=== PATIENT | female | born 1960 | race Caucasian/White ===

== ENCOUNTER 2021-03-08 18:29 | Emergency (ER) | payer MEDICARE, SELFPAY ==
[2021-03-08 18:36] VITALS: BP 134/60; PULSE 119; RESP 20; TEMP 36.8; O2SAT 100
--- NOTE | 2021-03-08 18:48 | ED.FEMALEGU ---
HPI - Female Genitourinary General Chief complaint: Urogenital-Female Stated complaint: sore throat,vaginal inf Source: patient and RN notes reviewed Mode of arrival: ambulatory Limitations: no limitations History of Present Illness HPI Narrative: Padmini is a 60 year old female who ambulated into the [facility] with c/o low back pain, painful urination, and vaginal itching without discharge for one week. Patient has taken Vagisil at home. MD elicited complaint: dysuria and genital itching Related Data Home Medications Medication Instructions Recorded Confirmed bupropion HCl 100 mg PO BID 03/08/21 03/08/21 famotidine 40 mg PO DAILY 03/08/21 03/08/21 fluoxetine 40 mg PO DAILY 03/08/21 03/08/21 fluticasone propion-salmeterol 2 inh INHALATION BID 03/08/21 03/08/21 [Advair Diskus] pravastatin 40 mg PO DAILY 03/08/21 03/08/21 Allergies Allergy/AdvReac Type Severity Reaction Status Date / Time No Known Allergies Allergy Verified 03/08/21 18:51 Review of Systems Review of Systems: CONSTITUTIONAL: Denies body aches, fever, chills, or sweats. EYES: Denies visual changes, redness, or discharge. ENT: Denies rhinorrhea, congestion, sore throat, or otalgia. CARDIOVASCULAR: Denies chest pain, palpitations, or edema. RESPIRATORY: Denies cough or dyspnea. GASTROINTESTINAL: Denies abdominal pain, nausea, vomiting, or diarrhea. GENITOURINARY: + dysuria ; + vaginal itching SKIN: Denies rash, itching, or wounds. MUSCULOSKELETAL: Denies back pain, joint pain, or myalgia. NEUROLOGIC: Denies headache, numbness, tingling, or weakness. PSYCH: Denies depression or anxiety. All systems reviewed & are unremarkable except as noted in HPI and below PMFSH Comments At time of signature, I have reviewed and agree with nursing past medical, surgical, social and family history unless otherwise noted. Please see nursing chart for further information. There is no relevant family history pertinent to the presenting complaint Exam Narrative: GENERAL: Well-appearing, well-nourished, and in no acute distress. HEAD: Normocephalic, atraumatic. EYES: EOMI. No redness or drainage. Conjunctivae normal. ENT: Mucous membranes pink and moist. Nares clear. No rhinorrhea. Posterior pharynx with minimal erythema and clear postnasal drainage. NECK: Normal AROM. Supple. No lymphadenopathy. CHEST: No respiratory distress. Clear to auscultation. : cervix pale, mild erythema, uterus tender to palpation during exam. ABDOMEN: Soft, nontender, nondistended, normal active bowel sounds. MUSCULOSKELETAL: No bony tenderness. EXTREMITIES: Normal range of motion. No edema. SKIN: Warm, dry, no rash. Capillary refill normal. Normal skin turgor. NEURO: No focal deficits. Alert and oriented x3. Gait steady. PSYCH: Normal affect. No signs of depression or anxiety. Course Vital Signs Vital signs: Vital Signs Temperature 36.8 C 03/08/21 18:36 Pulse Rate 119 H 03/08/21 18:36 Respiratory Rate 20 03/08/21 18:36 Blood Pressure 134/60 03/08/21 18:36 Pulse Oximetry 100 03/08/21 18:36 Temperature 36.8 C 03/08/21 18:36 Pulse Rate 119 H 03/08/21 18:36 Respiratory Rate 20 03/08/21 18:36 Blood Pressure 134/60 03/08/21 18:36 Pulse Oximetry 100 03/08/21 18:36 MDM - Female Genitourinary MDM Narrative Medical decision making narrative: UA was negative for any leukocytes. Vaginal and exam was performed cervix is pale with mild erythema. Uterus was tender throughout;. Patient was very uncomfortable throughout the exam due to increased tenderness in the area. Patient has not had a Pap exam in at least 10 to 15 years. Patient was instructed that she needs to follow-up immediately with OB/gyne. Differential Diagnosis Differential diagnosis: Likely urinary tract infection, bacterial vaginosis, trichomoniasis and cervicitis Medical Records Attestation: I reviewed the patient's medical records. Lab Data Attestation: I reviewed the pat
[2021-03-08] MEDS: LIDOCAINE HCL 1% LOCAL INJ 20 ML VIAL IM (19:18)
[2021-03-08] MEDS: cefTRIAXone 500 MG VIAL IM (19:19)
--- NOTE | 2021-03-08 19:33 | PC.NURSE ---
NO CULTURE PER PROVIDER.
== END 2021-03-08 19:40 | disposition home or self-care (01) ==
PROVIDERS: Emergency Provider Nurse Practitioner Family
DX: N76.0 Acute vaginitis (principal); E78.00 Pure hypercholesterolemia, unspecified; K21.9 Gastro-esophageal reflux disease without esophagitis; M06.9 Rheumatoid arthritis, unspecified; F32.A Depression, unspecified
CPT/HCPCS: 81003; 87070; 87491; 87591; 87661; 96372; 99214; G0463; J0696

== ENCOUNTER 2021-05-26 13:36 | Outpatient (CLI) | payer OTHER, MEDICARE, SELFPAY ==
--- NOTE | ~2021-05-26 | CT_ITS ---
EXAMINATION: CT shoulder RT wo con DATE: 05/26/2021 14:28 INDICATION: Right shoulder pain TECHNIQUE: High resolution computed tomography (CT) of the right shoulder was performed without intra venous contrast. Additional sagittal and coronal reconstructions were performed. Automated exposure c ontrol and iterative reconstruction technique were employed. The dose-length product was 251.55 mGy-c m. COMPARISON: None FINDINGS: Alignment is normal. No fracture. Mild osteoarthritis with mild nonuniform joint space narrowing at t he right glenohumeral and acromioclavicular joints. No evident glenohumeral effusion, subacromial/sub deltoid bursitis or other abnormal fluid collections. Musculature of the right shoulder girdle and up per abdomen is unremarkable with no evident effusion. No abnormal masses identified. No pathologicall y enlarged right axillary or hilar lymphadenopathy. Visualized portions of the right mid and upper florence ngs are unremarkable. IMPRESSION: Mild right glenohumeral and acromioclavicular osteoarthritis. Reviewed, dictated and finalized at location A. [place] BLANCHER
--- NOTE | ~2021-05-26 | CT_ITS ---
EXAMINATION: CT cervical spine wo [facility] EXAM DATE: 05/26/2021 14:28 INDICATION: Cervicalgia, Injury X 1 Month Ago Rt Shoulder/Neck Pain. TECHNIQUE: Spiral CT of the cervical spine was performed without contrast. Axial images were reviewe d. Coronal and sagittal reformatted images cervical spine were also reviewed. The dose-length produc t (DLP) for this examination was 251.55 mGy-cm. The exposure was tailored according to patient size (auto mA exposure control), and iterative reconstruction (ASIR) was used as additional dose reduction technique. There is no prior study for comparison. FINDINGS: There is mild cervical dextroscoliosis. The odontoid process is intact. The lateral mihai s of C1 line up with C2. Prevertebral soft tissue and pre-dens space are within normal limits. The ve rtebral bodies are aligned in the AP dimension. There is moderate disc disease at C5-6, mild to moder ate at C4-5, less disc disease other cervical levels. Paraspinal soft tissue is unremarkable. Lung ap ices unremarkable.. Level by level evaluation: C2-C3: There is a mild diffuse disc bulge. Uncovertebral joint arthropathy: None. Facet joint arthropathy: Mild to moderate bilateral. Neural foraminal stenosis: No stenosis. Central canal stenosis: No stenosis. C3-C4: There is a mild diffuse disc bulge. Uncovertebral joint arthropathy: Mild bilateral. Facet joint arthropathy: Mild to moderate right, mild left. Neural foraminal stenosis: Mild left. Central canal stenosis: No stenosis. C4-C5: There is a mild diffuse disc bulge. Uncovertebral joint arthropathy: Mild left. Facet joint arthropathy: Mild to moderate left, mild right. Neural foraminal stenosis: Mild left. Central canal stenosis: No stenosis. C5-C6: There is a mild to moderate diffuse disc bulge. Uncovertebral joint arthropathy: Moderate right, mild to moderate left. Facet joint arthropathy: Mild to moderate left, mild right. Neural foraminal stenosis: Moderate right, mild left. Central canal stenosis: Mild. C6-C7: There is a mild diffuse disc bulge. Uncovertebral joint arthropathy: Mild bilateral. Facet joint arthropathy: Mild to moderate right, mild left. Neural foraminal stenosis: Minimal right. Central canal stenosis: No stenosis. C7-T1: There is a minimal diffuse disc bulge. Uncovertebral joint arthropathy: Mild left. Facet joint arthropathy: Mild to moderate bilateral. Neural foraminal stenosis: Minimal right. Central canal stenosis: No stenosis. IMPRESSION: 1. Moderate C5-6 disc disease and right neural foraminal stenosis. 2. Less spondylosis other levels. 3. Mild cervical dextroscoliosis. 4. No cervical fracture. Reviewed, dictated and finalized at location G. CIAL [facility] REPORTER
--- NOTE | ~2021-05-26 | CT_ITS ---
EXAMINATION: CT lumbar spine wo con DATE: 05/26/2021 14:28 INDICATION: Spondylosis without myelopathy or radiculopathy. TECHNIQUE: Computed tomography (CT) of the lumbar spine was performed without intravenous contrast. A utomated exposure control and iterative reconstruction technique were employed. The dose-length produ ct was 251.55 mGy-cm. COMPARISON: None FINDINGS: There is 2 mm anterolisthesis of L4 on L5. Vertebral body heights are normal. There is mild ly decreased disc height at L2-L3 and L4-L5. The following disc levels are specifically discussed: L1-L2: The disc does not extend beyond the endplate margin. There is mild bilateral facet joint osteo arthritis. There is no neural foraminal stenosis. There is no central canal stenosis. L2-L3: The disc is bulging. There is mild bilateral facet joint osteoarthritis. There is mild bilater al neural foraminal stenosis. There is mild central canal stenosis. L3-L4: The disc is bulging. There is moderate bilateral facet joint osteoarthritis. There is mild malissa ateral neural foraminal stenosis. There is mild central canal stenosis. L4-L5: The disc is bulging. There is severe bilateral facet joint osteoarthritis. There is moderate a nd mild left neural foraminal stenosis. There is mild central canal stenosis. There is moderate steno sis of right lateral recess. L5-S1: The disc is bulging. There is severe bilateral facet joint osteoarthritis. There is mild bilat eral neural foraminal stenosis. There is mild central canal stenosis. IMPRESSION: 1. Moderate spondylosis at L4-L5 and mild spondylosis at other levels. Reviewed, dictated and finalized at location A. EDGER
== END 2021-05-26 13:37 | disposition home or self-care (01) ==
LOC: ANHIMG 13:48
DX: M79.641 Pain in right hand (principal); M50.30 Other cervical disc degeneration, unspecified cervical region; M47.817 Spondylosis without myelopathy or radiculopathy, lumbosacral region; M48.07 Spinal stenosis, lumbosacral region; M47.813 Spondylosis without myelopathy or radiculopathy, cervicothoracic region; M48.03 Spinal stenosis, cervicothoracic region; M41.9 Scoliosis, unspecified; M19.011 Primary osteoarthritis, right shoulder
CPT/HCPCS: 72125; 72131; 73200

== ENCOUNTER 2021-08-09 16:24 | Emergency (ER) | payer MEDICARE, SELFPAY ==
--- NOTE | ~2021-08-09 | XR_ITS ---
EXAMINATION: XR chest 2V Exam Date/Time: 08/09/2021 16:45 CDT CLINICAL HISTORY: WHEEZING,CRACKLES,FEVER,HX PNEUMONIA Comparison: None available. RESULT: Lines, tubes, and devices: None. Lungs and pleura: Multiple, irregular subsegmental and rounded opacities in the left mid and lower l lynne. Left costophrenic angle blunting. Cardiomediastinal silhouette: Normal cardiomediastinal silhouette. Other: No acute osseous or upper abdominal finding. IMPRESSION: Left mid and lower lung findings may reflect pneumonia with a small left pleural effusion in the appr opriate clinical context. Recommend follow-up PA and lateral views of the chest to document resolutio n after appropriate therapy. Reviewed, dictated and finalized at location K. IMPRESSION: Left mid and lower lung findings may reflect pneumonia with a small left pleura l effusion in the appropriate clinical context. Recommend follow-up PA and late ral views of the chest to document resolution after appropriate therapy.
[2021-08-09 16:31] VITALS: BP 135/69; PULSE 123; RESP 24; TEMP 37.3; O2SAT 96
--- NOTE | 2021-08-09 16:37 | ED.URI ---
HPI - URI/Sore Throat General Chief Complaint: Upper Respiratory Infection Stated Complaint: fever congestion aches cough Time Seen by Provider: 08/09/21 16:25 Source: patient and RN notes reviewed History of Present Illness HPI Narrative: Patient is a 60-year-old female who presents the urgent care with complaints of cough, fever, congestion and body aches. Patient states her symptoms started on Tuesday. States that she has been taking Mucinex and ibuprofen for a 101 Fahrenheit temperature. Patient states that she took a Covid test yesterday which was negative. Denies of any ill contacts. Denies of any shortness of breath. Patient states that she has had pneumonia several times in the past. No other acute complaints. No acute distress noted. Patient aware of the plan of care. Some parts of this dictation were generated by voice recognition software and may contain typographical and/or grammatical inaccuracies. Related Data Home Medications Medication Instructions Recorded Confirmed famotidine 40 mg PO DAILY 03/08/21 08/09/21 fluticasone propion-salmeterol 2 inh INHALATION BID 03/08/21 08/09/21 [Advair Diskus] cyclobenzaprine 10 mg PO HS 08/09/21 08/09/21 folic acid 1 mg PO DAILY 08/09/21 08/09/21 methotrexate sodium (PF) 25 mg SUBCUT DIRECTED 08/09/21 08/09/21 naproxen 500 mg PO BID 08/09/21 08/09/21 prednisone 5 mg PO DAILY 08/09/21 08/09/21 tofacitinib [Xeljanz XR] 11 mg PO DAILY 08/09/21 08/09/21 tramadol 50 mg PO QID 08/09/21 08/09/21 Allergies Allergy/AdvReac Type Severity Reaction Status Date / Time No Known Allergies Allergy Verified 06/17/21 12:36 Review of Systems Review of Systems: CONSTITUTIONAL: Reports a fever EYES: Denies visual changes, redness, or discharge. ENT: Reports of nasal congestion and postnasal drainage CARDIOVASCULAR: Denies chest pain, palpitations, or edema. RESPIRATORY: Reports of cough without dyspnea GASTROINTESTINAL: Denies abdominal pain, nausea, vomiting, or diarrhea. GENITOURINARY: Denies dysuria or hematuria. SKIN: Denies rash or itching. MUSCULOSKELETAL: Denies back pain, joint pain. Reports of body aches NEUROLOGIC: Denies headache, numbness, or weakness. All other systems reviewed are negative, except as documented in HPI. PMFSH Comments At the time of my signature, I reviewed and agree with the nursing past medical, surgical, social, and family history. There is no relevant family history pertinent to the patient complaint. Exam Narrative: GENERAL: This is a well-nourished, well-developed patient, in no apparent distress. HEAD: normocephalic, atraumatic. EYES: PERRL. Sclera clear/white. Vision is grossly intact. EARS: External ears normal, auditory canals clear and without drainage, TMs normal without perforation. Hearing grossly intact. NOSE: External nose normal with no obvious nasal discharge, nares without redness, no rhinorrhea. THROAT: Mucous membranes moist, posterior pharynx clear. Moderate postnasal drainage NECK: Neck supple CARDIOVASCULAR: Regular rate and rhythm without murmurs, gallops, or rubs. RESPIRATORY: Expiratory wheezes throughout with bibasilar crackles and slightly diminished SKIN: warm, intact with no suspicious lesions or rash, good texture and turgor. NEURO: awake, alert, and oriented to person, place and time. There were no obvious focal neurologic abnormalities. EXTREMITIES: No clubbing, cyanosis, or edema. Course Course Level of Care: Express Care Visit Vital Signs Vital signs: Vital Signs Temperature 99.2 F 08/09/21 16:31 Pulse Rate 123 H 08/09/21 16:31 Respiratory Rate 24 H 08/09/21 16:31 Blood Pressure 135/69 08/09/21 16:31 Pulse Oximetry 96 08/09/21 16:31 Temperature 99.2 F 08/09/21 16:31 Pulse Rate 123 H 08/09/21 16:31 Respiratory Rate 24 H 08/09/21 16:31 Blood Pressure 135/69 08/09/21 16:31 Pulse Oximetry 96 08/09/21 16:31 Reviewed MDM - URI/Sore Throat MDM Narrative Medical decis
== END 2021-08-09 17:20 | disposition home or self-care (01) ==
PROVIDERS: Emergency Provider Nurse Practitioner Family; PCP Family Medicine
DX: J18.1 Lobar pneumonia, unspecified organism (principal); E78.00 Pure hypercholesterolemia, unspecified; K21.9 Gastro-esophageal reflux disease without esophagitis; M06.9 Rheumatoid arthritis, unspecified
CPT/HCPCS: 71046; 87804; 99213; G0463

== ENCOUNTER 2021-11-25 10:24 | Emergency (ER) | payer MEDICARE, SELFPAY ==
--- NOTE | ~2021-11-25 | XR_ITS ---
EXAMINATION: XR chest 2V DATE: 11/25/2021 10:52 INDICATION: Shortness of breath. TECHNIQUE: Frontal and lateral views of the chest were obtained. COMPARISON: Chest 2 views 09/05/2021 FINDINGS: There are airspace opacities at left lung base. There is a small left pleural effusion. No pneumothorax. The heart size is normal. IMPRESSION: 1. Stable airspace opacities at left lung base, consistent with atelectasis versus pneumonia. Given t he persistence of these findings, consider chest CT with contrast to exclude malignancy. 2. Stable small left pleural effusion. Reviewed, dictated and finalized at location A. IMPRESSION: 1. Stable airspace opacities at left lung base, consistent with atelectasis carmencita angela pneumonia. Given the persistence of these findings, consider chest CT with contrast to exclude malignancy. 2. Stable small left pleural effusion.
[2021-11-25 10:31] VITALS: BP 114/65; PULSE 90; RESP 28; TEMP 36.6; O2SAT 96
[2021-11-25 10:42] VITALS: BP 114/65; PULSE 90; RESP 28; TEMP 36.6; O2SAT 96
--- NOTE | 2021-11-25 10:43 | ED.URI ---
HPI - URI/Sore Throat General Chief Complaint: Upper Respiratory Infection Stated Complaint: Fever,Congestion/Cough Time Seen by Provider: 11/25/21 10:43 Source: patient Mode of arrival: ambulatory Limitations: no limitations History of Present Illness HPI Narrative: 60 yo F with hx of COPD presents with c/o congestion, fever, fatigue and cough for 3 days. Started feeling more SOB than usual yesterday. Has been using inhalers. Is concerned she may have pneumonia. Denies N/v/D. Not taking any OTC medications to treat symptoms. All systems reviewed and negative except as noted above. Related Data Home Medications Medication Instructions Recorded Confirmed famotidine 40 mg tablet 40 mg PO DAILY 03/08/21 11/25/21 fluticasone 500 mcg-salmeterol 50 2 inh inhalation BID 03/08/21 11/25/21 mcg/dose blistr powdr for inhalation (Advair Diskus) tofacitinib 11 mg tablet,extended 11 mg PO DAILY 08/09/21 11/25/21 release 24 hr (Xeljanz XR) tramadol 50 mg tablet 50 mg PO QID 08/09/21 11/25/21 Allergies Allergy/AdvReac Type Severity Reaction Status Date / Time No Known Allergies Allergy Verified 06/17/21 12:36 Review of Systems Review of Systems: CONSTITUTIONAL: Reports fever, chills, or sweats. EYES: Denies visual changes, redness, or discharge. ENT: Denies rhinorrhea, congestion. Denies sore throat, or otalgia. CARDIOVASCULAR: Denies chest pain, palpitations, or edema. RESPIRATORY: Reports cough and dyspnea. GASTROINTESTINAL: Denies abdominal pain, nausea, vomiting, or diarrhea. GENITOURINARY: Denies dysuria or hematuria. SKIN: Denies rash or itching. MUSCULOSKELETAL: Denies back pain, joint pain, or myalgia. NEUROLOGIC: Denies headache, numbness, or weakness. PSYCHIATRIC: Denies anxiety or depression. All other systems reviewed are negative, except as documented in HPI. PMFSH Comments At time of signature, agree with nursing past medical, surgical, social and family history. There is no relevant family history pertinent to the presenting complaint. Exam Narrative: GENERAL: This is a well-nourished, well-developed patient, in no apparent distress. HEAD: normocephalic, atraumatic. EYES: PERRL. Sclera clear/white. Vision is grossly intact. EARS: External ears normal, auditory canals clear and without drainage, TMs normal without perforation. Hearing grossly intact. NOSE: External nose normal with clear nasal drainage, erythema to nares. THROAT: Mucous membranes moist, posterior pharynx clear. NECK: Neck supple, non-tender without lymphadenopathy, masses or thyromegaly. CARDIOVASCULAR: Regular rate and rhythm without murmurs, gallops, or rubs. RESPIRATORY: Decreased lung sounds throughout all lung banuelos. No wheezes, rales, or rhonchi. SKIN: warm, Dry, intact with no suspicious lesions or rash, good texture and turgor. NEURO: awake, alert, and oriented to person, place and time. There were no obvious focal neurologic abnormalities. EXTREMITIES: No joint tenderness, effusion, or edema noted. Telemetry Course Course Level of Care: Express Care Visit Vital Signs Vital signs: Vital Signs Temperature 36.6 C 11/25/21 10:31 Pulse Rate 90 11/25/21 10:31 Respiratory Rate 28 H 11/25/21 10:31 Blood Pressure 114/65 11/25/21 10:31 Pulse Oximetry 96 11/25/21 10:31 Oxygen Delivery Room Air 11/25/21 10:31 Temperature 36.6 C 11/25/21 10:42 Pulse Rate 90 11/25/21 10:42 Respiratory Rate 28 H 11/25/21 10:42 Blood Pressure 114/65 11/25/21 10:42 Pulse Oximetry 96 11/25/21 10:42 Oxygen Delivery Room Air 11/25/21 10:42 Reviewed MDM - URI/Sore Throat MDM Narrative Medical decision making narrative: Patient is aware of diagnosis, understands and agrees to treatment plan. Anticipatory guidance given. Patient agrees to follow-up as directed and is aware of reasons to seek care at the emergency department. Portions of this record may have been created with voice recognition software
== END 2021-11-25 11:22 | disposition home or self-care (01) ==
PROVIDERS: Emergency Provider Nurse Practitioner Family
DX: J18.9 Pneumonia, unspecified organism (principal); J44.1 Chronic obstructive pulmonary disease with (acute) exacerbation; Z20.822 Contact with and (suspected) exposure to COVID-19; E78.00 Pure hypercholesterolemia, unspecified; K21.9 Gastro-esophageal reflux disease without esophagitis; M06.9 Rheumatoid arthritis, unspecified
CPT/HCPCS: 71046; 87426; 99213; C9803; G0463

== ENCOUNTER 2022-12-19 08:04 | Emergency (ER) | payer MEDICARE, SELFPAY ==
--- NOTE | ~2022-12-19 | XR_ITS ---
EXAMINATION: XR chest 2V DATE: 12/19/2022 08:35 INDICATION: Cough and shortness of breath TECHNIQUE: PA and lateral views of the chest are obtained. COMPARISON: 11/25/2021, 08/09/2021 FINDINGS: Left basilar airspace opacities persist without significant change. There is a small left p leural effusion. No pneumothorax is identified. The cardiomediastinal silhouette is normal. There is moderate thoracic spondylosis. IMPRESSION: 1. Persistent airspace opacities of the left lung base. Given history of tobacco use, further evaluat ion with nonemergent chest CT with contrast is recommended to exclude malignancy. 2. Small left pleural effusion, stable. Reviewed, dictated and finalized at location A. IMPRESSION: 1. Persistent airspace opacities of the left lung base. Given history of tobacc o use, further evaluation with nonemergent chest CT with contrast is recommende d to exclude malignancy. 2. Small left pleural effusion, stable.
[2022-12-19 08:12] VITALS: BP 98/67; PULSE 102; RESP 20; TEMP 36.2; O2SAT 97
[2022-12-19 08:21] VITALS: BP 98/67; PULSE 102; RESP 20; TEMP 36.2; O2SAT 97
[2022-12-19] MEDS: IPRATROPIUM BR 0.02% INH SOLN 0.5 MG/2.5 ML VIAL INHALATION (08:43)
[2022-12-19] MEDS: ALBUTEROL SULFATE NEB 2.5 MG/3 ML INH INHALATION (08:43)
--- NOTE | 2022-12-19 08:44 | ED.GENADULT ---
HPI - General Adult General Chief complaint: Upper Respiratory Infection Stated complaint: sore throat,negro Time Seen by Provider: 12/19/22 08:09 Source: patient Mode of arrival: ambulatory Limitations: no limitations History of Present Illness HPI narrative: Presents for evaluation of sick symptoms for last 2 days. Symptoms include sinus congestion, thick yellow drainage from the nares, productive cough of yellow sputum, shortness of breath, sore throat and pain in the posterior ribs on the right side. Denies fever, chills, nausea, vomiting or chest pain. No recent sick contacts to her knowledge. She smokes 1 ppd. She has underlying COPD. She does not have neb treatments at home. Related Data Home Medications Medication Instructions Recorded Confirmed tramadol 50 mg tablet 50 mg PO QID 08/09/21 12/19/22 gabapentin 300 mg capsule 900 mg PO DAILY 12/19/22 12/19/22 prednisone 5 mg tablet 5 mg PO DIRECTED 12/19/22 12/19/22 tocilizumab 162 mg/0.9 mL 162 mg subcut DIRECTED 12/19/22 12/19/22 subcutaneous pen injector (Actemra ACTPen) Allergies Allergy/AdvReac Type Severity Reaction Status Date / Time No Known Allergies Allergy Verified 12/19/22 08:16 Review of Systems Review of Systems: CONSTITUTIONAL: Denies fever, chills, or sweats. EYES: Denies visual changes, redness, or discharge. ENT: Reports sinus congestion, thick yellow drainage from the nares and sore throat CARDIOVASCULAR: Denies chest pain, palpitations, or edema. RESPIRATORY:Reports productive cough of yellow sputum and SOB GASTROINTESTINAL: Denies abdominal pain, nausea, vomiting, or diarrhea. GENITOURINARY: Denies dysuria or hematuria. SKIN: Denies rash or itching. MUSCULOSKELETAL: Reports pain in right lower ribs posteriorly. Denies joint pain or myalgia. NEUROLOGIC: Denies headache, numbness, dizziness, or weakness. PSYCHIATRIC: Denies anxiety or depression. [facility] Past Medical History Medical History COPD (chronic obstructive pulmonary disease) Rheumatoid arthritis Surgical History Surgical History No pertinent past surgical history Family History Family History Mother Family history non-contributory Social History Social History Smoking packs per day: 1 Smoking cigarettes per day: 20.0 Smoking status: Current every day smoker Substance use: never Living arrangements: alone Gender identity (if verbalized by the patient): Female Spiritual care concerns: No Exam Narrative: GENERAL: Well-appearing, well-nourished, and in no acute distress. HEAD: Normocephalic, atraumatic. EYES: PERRLA and EOMI. ENT: Nares clear, no rhinorrhea or epistaxis. Mucous membranes moist. Oropharynx without tonsillar hypertrophy exudate or other lesions. Bilateral TMs pearly fox nonbulging NECK: Supple. No adenopathy or masses. No carotid bruits or JVD CHEST: Wheezing noted in all lung banuelos bilaterally. Rales are present in posterior lower lobes bilaterally HEART: Regular rate and rhythm. No murmur heard. Normal peripheral pulses. ABDOMEN: Soft, nontender, nondistended, normal active bowel sounds. EXTREMITIES: Normal range of motion. No edema. SKIN: Warm, dry, no rash. NEURO: No focal deficits. Alert and oriented x3. PSYCH: Normal mood and affect. Course Course Emergency Course: This is a 61-year-old female who presented for evaluation of respiratory symptom. She is given Decadron and neb treatment while here. Chest x-ray consistent with pneumonia. Saturations are normal so can manage outpatient with oral antibiotic therapy. Will discharge with Augmentin, azithromycin, prednisone and albuterol. Advise she was follow-up with primary care provider to ensure clearing of opacity gi
== END 2022-12-19 09:26 | disposition home or self-care (01) ==
PROVIDERS: Emergency Provider Nurse Practitioner
DX: J44.1 Chronic obstructive pulmonary disease with (acute) exacerbation (principal); J18.9 Pneumonia, unspecified organism; Z20.822 Contact with and (suspected) exposure to COVID-19; F17.210 Nicotine dependence, cigarettes, uncomplicated; M06.9 Rheumatoid arthritis, unspecified
CPT/HCPCS: 71046; 87081; 87426; 87804; 87880; 94640; 96372; 99213; C9803; G0463; J1100

== ENCOUNTER 2024-06-30 08:29 | Emergency (ER) | payer MEDICARE, SELFPAY ==
--- OUTSIDE RECORDS SUMMARY | 2024-06-30 08:34 | XMS_ITS | Patient Health Summary ---
Author Organization [facility] [employer] Address [address] [place] [address] Care Team Providers Care Marketing And Communications Officer Name Role Phone Chuy Hair MD Unavailable Unavailable Donis Ortez MD Primary Care Provider Note from [facility],non-owned Affiliates and Associated Physician Practices is amultiple site organization consisting of ambulatory clinics and hospital sitesin [place], [place], [place] and [place]. This disclosure is being madepursuant to the Care Everywhere program and may not contain all information available regarding this patient. Last updated 18.[facility] Allergies No known active allergies Medications * Be aware that medications may not be up to date on this document. Alwaysverify current medications with the patient. * Cholecalciferol (VITAMIN D) 1000 UNITS capsule(Started 06/07/2013) Take 1 Cap by mouth once daily. * acetaminophen (TYLENOL) 500 MG tablet(Started 08/23/2013) Take 2 Tabs by mouth 3 times daily. Maximum allowable Acetaminophen amount = 4 Grams / 24 hours. * sulfaSALAzine (AZULFIDINE) 500 MG tablet(Started 07/12/2014) Take 2 Tabs by mouth 2 times daily. Indications: Rheumatoid Arthritis 12 refills left * hydroxychloroquine (PLAQUENIL) 200 MG tablet(Started 07/12/2014) Take 1 Tab by mouth 2 times daily. 12 refills left * gabapentin (NEURONTIN) 300 MG capsule(Started 07/12/2014) Take 1-2 Caps by mouth at bedtime. 6 refills left * methotrexate 2.5 MG tablet(Started 07/12/2014) Take 6 Tabs by mouth every 7 days. 12 refills left * mirtazapine (REMERON) 30 MG tablet(Started 01/14/2015) Take 1 Tab by mouth at bedtime 5 refills left * methadone (DOLOPHINE) 10 MG tablet(Started 02/11/2015) Take 0.5-1 Tabs by mouth 4 times daily as needed after meals/at bedtime for Pain Earliest Fill Date: 02/11/15 * ALPRAZolam (XANAX) 0.25 MG tablet(Started 02/11/2015) Take 1 Tab by mouth at bedtime * traMADol (ULTRAM) 50 MG tablet(Started 02/18/2015) TAKE ONE TO TWO TABLETS BY MOUTH THREE TIMES DAILY NEEDED FOR PAIN. TAKE WITH OVER THE COUNTER ACETAMINOPHEN. * famotidine (PEPCID) 40 MG tablet(Started 09/29/2020) TAKE 1 TABLET(40 MG) BY MOUTH DAILY * insulin syringe-needle (BD FangxinmeiINE) 29G X 1/2 1 ML syringe(Started 05/12/2021) Use 1 syringe to inject MTX subcutaneously every 7 days. (100 syringes/box). * tofacitinib 24hr (XELJANZ XR) 11 MG tablet(Started 05/27/2021) Take 1 (one) tablet by mouth once daily 11 refills by 05/27/2022 * Eliquis 5 MG tablet(Started 05/07/2022) Take 1 (one) tablet by mouth once daily * atorvastatin (Lipitor) 20 MG tablet(Started 06/04/2022) Take 1 (one) tablet by mouth every evening * folic acid (Folvite) 1 MG tablet(Started 08/24/2022) Take 1 (one) tablet by mouth once daily 4 refills by 08/24/2023 * predniSONE (Deltasone) 5 MG tablet(Started 08/24/2022) Take 1 (one) tablet by mouth once daily 1 refill by 08/24/2023 * methotrexate (Rheumatrex) 2.5 MG tablet(Started 08/24/2022) TAKE 4 TABLETS BY MOUTH ONCE IN WEEK 1, AND THEN 6 TABLETS ONCE EVERY WEEK. 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 RA (rheumatoid arthritis) Immunizations * Covid Pfizer primary monovalent 12+ yr 0.3mL Purple cap(Given 03/05/2021, 08/28/2020, 07/31/2020) Social History Tobacco Use Types Packs/Day Years Used Date Smoking Tobacco: Every Day Cigarettes 1 33 Smokeless Tobacco: Never Tobacco Cessation:Ready to Q uit: Not Asked; Counseling Given: Not Answered Alcohol Use Standard Drinks/Week Comments No 0 (1 standard drink = 0.6 oz pur e alcohol) Sex and Gender Information Value Date Recorded Sex Assigned at Not on file Gender Identity Not on file Sexual Orientation Not on file Last Filed Vital Signs Vital Sign Reading Time Taken Comments Blood Pressure 100/64 08/24/2022 9:51 AM CDT Pulse 80 08/24/2022 9:51 AM CDT Temperature - - Respiratory Rate - - Oxygen Saturation - - Inhaled Oxygen Concentration - - Weight 61.2 kg (135 lb) 08/24/2022 9:51 AM CDT Height 170.2 cm (5' 7 ) 07/12/2014 10:55 AM [employer] Body Mass Index 21.14 07/12/2014 10:55 AM [employer] Procedures * VITAMIN D 25-HYDROXY(Performed 08/24/2022) Performed for Vitamin D deficiency * COMPREHENSIVE METABOLIC PANEL(Performed 08/24/2022) Performed for Rheumatoid arthritis involving multiple sites, unspecified whether rheumatoid factor present (HCC) * CBC W AUTO DIFFERENTIAL(Performed 08/24/2022) Performed for Rheumatoid arthritis involving multiple sites, unspecified whether rheumatoid factor present (HCC) * XR WRIST BILAT 3VW OR MORE(Performed 08/24/2022) Performed for Rheumatoid arthritis involving multiple sites, unspecified whether rheumatoid factor present (HCC) * XR HAND BILAT 3VW OR MORE(Performed 08/24/2022) Performed for Rheumatoid arthritis involving multiple sites, unspecified whether rheumatoid factor present (HCC) * CYCLIC CITRUL PEPTIDE ANTIBODY IGG/IGA (CCP)(Performed 05/12/2021) Performed for Rheumatoid arthritis involving multiple sites, unspecified whether rheumatoid factor present (HCC) * RHEUMATOID FACTOR BLOOD QUANTITATIVE(Performed 05/12/2021) Performed for Rheumatoid arthritis involving multiple sites, unspecified whether rheumatoid factor present (HCC) * C-REACTIVE PROTEIN(Performed 05/12/2021) Performed for Rheumatoid arthritis involving multiple sites, unspecified whether rheumatoid factor present (HCC) * ERYTHROCYTE SEDIMENTATION RATE(Performed 05/12/2021) Performed for Rheumatoid arthritis involving multiple sites, unspecified whether rheumatoid factor present (HCC) * COMPREHENSIVE METABOLIC PANEL(Performed 05/12/2021) Performed for Rheumatoid arthritis involving multiple sites, unspecified whether rheumatoid factor present (HCC) * CBC W AUTO DIFFERENTIAL(Performed 05/12/2021) Performed for Rheumatoid arthritis involving multiple sites, unspecified whether rheumatoid factor present (HCC) * HEPATITIS SCREEN ACUTE(Performed 05/12/2021) Performed for Rheumatoid arthritis involving multiple sites, unspecified whether rheumatoid factor present (HCC), Fatigue, unspecified type * QUANTIFERON TB-GOLD(Performed 05/12/2021) Performed for Rheumatoid arthritis involving multiple sites, unspecified whether rheumatoid factor present (HCC) * XR CHEST 2VW(Performed 02/10/2017) Performed for Chest pain, unspecified type * XR KNEE RIGHT 4VW OR MORE(Performed 05/11/2016) Performed for Right knee pain, unspecified chronicity * XR PELVIS W BILAT HIP 2VW(Performed 06/05/2015) Performed for Hip pain, left * C-REACTIVE PROTEIN(Performed 01/14/2015) Performed for RA (rheumatoid arthritis) (HCC) * TSH(Performed 01/14/2015) Performed for Weight loss * COMPREHENSIVE METABOLIC PANEL(Performed 01/14/2015) Performed for High risk medications (not anticoagulants) long-term use * CBC W AUTO DIFFERENTIAL(Performed 01/14/2015) Performed for High risk medications (not anticoagulants) long-term use * COMPREHENSIVE METABOLIC PANEL(Performed 07/12/2014) Performed for High risk medications (not anticoagulants) long-term use * TSH(Performed 07/12/2014) Performed for Abnormal weight loss * CBC W AUTO DIFFERENTIAL(Performed 07/12/2014) Performed for High risk medications (not anticoagulants) long-term use * XR CHEST 2VW(Performed 07/12/2014) Performed for Smoker unmotivated to quit * C-REACTIVE PROTEIN(Performed 08/23/2013) Performed for RA (rheumatoid arthritis) ([facility]) * COMPREHENSIVE METABOLIC PANEL(Performed 08/23/2013) Performed for High risk medications (not anticoagulants) long-term use * CBC W AUTO DIFFERENTIAL(Performed 08/23/2013) Performed for High risk medications (not anticoagulants) long-term use * XR CHEST 2VW(Performed 06/07/2013) Performed for Post-thoracotomy pain * COMPREHENSIVE METABOLIC PANEL(Performed 06/07/2013) Performed for High risk medications (not anticoagulants) long-term use * CBC W AUTO DIFFERENTIAL(Performed 06/07/2013) Performed for High risk medications (not anticoagulants) long-term use * XR CHEST 2VW(Performed 02/01/2013) Performed for Abdominal mass, LUQ (left upper quadrant) * C-REACTIVE PROTEIN(Performed 02/01/2013) Performed for RA (rheumatoid arthritis) ([facility]) * COMPREHENSIVE METABOLIC PANEL(Performed 02/01/2013) Performed for High risk medications (not anticoagulants) long-term use * CBC W AUTO DIFFERENTIAL(Performed 02/01/2013) Performed for High risk medications (not anticoagulants) long-term use * CBC W AUTO DIFFERENTIAL(Performed 07/04/2012) Performed for High risk medications (not anticoagulants) long-term use * COMPREHENSIVE METABOLIC PANEL(Performed 07/04/2012) Performed for High risk medications (not anticoagulants) long-term use * C-REACTIVE PROTEIN(Performed 04/04/2012) Performed for RA (rheumatoid arthritis) ([facility]) * COMPREHENSIVE METABOLIC PANEL(Performed 04/04/2012) Performed for High risk medications (not anticoagulants) long-term use * CBC W AUTO DIFFERENTIAL(Performed 04/04/2012) Performed for High risk medications (not anticoagulants) long-term use * US EXTREMITY LEFT COMP JOINT(Performed 01/28/2012) Performed for RA (rheumatoid arthritis) ([facility]) * US EXTREMITY NON VASCULAR RIGHT(Performed 01/28/2012) Performed for RA (rheumatoid arthritis) ([facility]) * XR CERVICAL SPINE W/FLEX AND EXT(Performed 01/27/2012) Performed for Myofascial pain syndrome, cervical * XR CHEST 2VW(Performed 01/27/2012) Performed for Myofascial pain syndrome, cervical * C-REACTIVE PROTEIN(Performed 01/27/2012) Performed for RA (rheumatoid arthritis) ([facility]) * COMPREHENSIVE METABOLIC PANEL(Performed 01/27/2012) Performed for High risk medications (not anticoagulants) long-term use * CBC W AUTO DIFFERENTIAL(Performed 01/27/2012) Performed for High risk medications (not anticoagulants) long-term use * XR CHEST 2VW(Performed 09/14/2011) Performed for Pleural effusion, Cough * QUANTIFERON IN TUBE REFLEXED(Performed 09/07/2011) Performed for High risk medications (not anticoagulants) long-term use * QUANTIFERON TB-GOLD(Performed 09/07/2011) Performed for High risk medications (not anticoagulants) long-term use * C-REACTIVE PROTEIN(Performed 09/07/2011) Performed for RA (rheumatoid arthritis) ([facility]) * COMPREHENSIVE METABOLIC PANEL(Performed 09/07/2011) Performed for High risk medications (not anticoagulants) long-term use * CBC W AUTO DIFFERENTIAL(Performed 09/07/2011) Performed for High risk medications (not anticoagulants) long-term use * C-REACTIVE PROTEIN(Performed 05/24/2011) Performed for RA (rheumatoid arthritis) ([facility]) * COMPREHENSIVE METABOLIC PANEL(Performed 05/24/2011) Performed for High risk medications (not anticoagulants) long-term use * CBC W AUTO DIFFERENTIAL(Performed 05/24/2011) Performed for High risk medications (not anticoagulants) long-term use * C-REACTIVE PROTEIN(Performed 08/17/2010) Performed for RA (rheumatoid arthritis) ([facility]) * COMPREHENSIVE METABOLIC PANEL(Performed 08/17/2010) Performed for High risk medications (not anticoagulants) long-term use * CBC W AUTO DIFFERENTIAL(Performed 08/17/2010) Performed for High risk medications (not anticoagulants) long-term use Results * VITAMIN D 25-HYDROXY (08/24/2022 11:02 AM CDT) Vitamin D, 25 Hydroxy 33.2 30 - 100 ng/mL [facility] INSURANCE BILL Comment: Vitamin D Status: Deficiency <20 ng/mL Insufficiency 20-30 ng/mL Sufficiency 30-100 ng/mL Toxicity >100 ng/mL Blood BLOOD SPECIMEN / Unknown 08/24/2022 11:02 AM CDT 08/24/2022 Narrative Resulting Agency Comment Lab Testing performed at: [facility] [address] [place] [id number] Aleida Velasquez MD LAB - CHEMISTRY HUMBERTO CLARK [facility] INSURANCE BILL [address] [place] [address] * (ABNORMAL) CBC WITH DIFFERENTIAL (08/24/2022 11:02 AM CDT) Only the most recent of13 resultswithin the time period is included. WBC 6.1 4.4 - 10.7 x10E9/L [facility] INSURANCE BILL RBC 5.51(H) 3.80 - 5.20 x10E12/L [facility] INSURANCE BILL Hemoglobin 14.3 12.0 - 15.6 gm/dL [facility] INSURANCE BILL Hematocrit 45.7(H) 35.9 - 45.5 % [facility] INSURANCE BILL MCV 82.9 80.7 - 98.3 fl [facility] INSURANCE BILL MCH 26.0(L) 26.7 - 34.0 pg [facility] INSURANCE BILL MCHC 31.3 30.8 - 35.9 gm/dL [facility] INSURANCE BILL RDW 14.3 12.1 - 14.9 % [facility] INSURANCE BILL Platelet Count 250 153 - 416 x10E9/L [facility] INSURANCE BILL Comment:MPV FL BLOOD (SSM) 1 1.7 fl 9.4-12.9 Granulocytes % 67.4 44.0 - 73.0 % [facility] INSURANCE BILL Lymphocytes % 23.3 20.0 - 43.0 % [facility] INSURANCE BILL Monocytes % 6.0 5.0 - 13.0 % [facility] INSURANCE BILL Eosinophils % 2.0 0.0 - 6.0 % [facility] INSURANCE BILL Basophils % 0.5 0.0 - 2.0 % [facility] INSURANCE BILL Granulocytes Absolute 4.08 2.01 - 7.14 x10E9/L [facility] INSURANCE BILL Lymphocytes Absolute 1.41 1.07 - 3.94 x10E9/L [facility] INSURANCE BILL Monocytes Absolute 0.36 0.26 - 1.07 x10E9/L [facility] INSURANCE BILL Eosinophils Absolute 0.12 0 - 0.47 x10E9/L [facility] INSURANCE BILL Basophils Absolute 0.03 0 - 0.08 x10E9/L [facility] INSURANCE BILL Immature Granulocytes 0.8 0 - 1 % [facility] INSURANCE BILL Immature Granulocytes Absolute 0.05 0.00 - 0.06 x10E9/L [facility] INSURANCE BILL nRBC 0 /100 WBC [facility] INSURANCE BILL Blood BLOOD SPECIMEN / Unknown 08/24/2022 11:02 AM CDT 08/24/2022 Narrative Resulting Agency Comment Lab Testing performed at: [facility] [address] [place] [id number] Aleida Velasquez MD LAB - HEMATOLOGY ORD ERABLES [facility] INSURANCE BILL [address] [place] [address] * (ABNORMAL) COMPREHENSIVE METABOLIC PANEL (08/24/2022 11:02 AM CDT) Only the most recent of13 resultswithin the time period is included. Glucose 90 70 - 105 mg/dL [facility] INSURANCE BILL BUN 11 9.8 - 20.1 mg/dL [facility] INSURANCE BILL Creatinine 0.79 0.57 - 1.11 mg/dL [facility] INSURANCE BILL eGFR by CKD-EPI 84(L) >=90 mL/min/1.7 3 m2 [facility] INSURANCE BILL Sodium 141 136 - 145 mmol/L [facility] INSURANCE BILL Potassium 4.6 3.5 - 5.1 mmol/L [facility] INSURANCE BILL Chloride 106 98 - 107 mmol/L [facility] INSURANCE BILL CO2 27 23 - 31 mmol/L [facility] INSURANCE BILL Calcium 9.8 8.4 - 10.4 mg/dL [facility] INSURANCE BILL Protein Total 7.2 6.4 - 8.3 gm/dL [facility] INSURANCE BILL Albumin 4.3 3.2 - 4.6 gm/dL [facility] INSURANCE BILL Bilirubin Total 0.6 0.2 - 1.2 mg/dL [facility] INSURANCE BILL Alkaline Phosphatase 78 40 - 150 U/L [facility] INSURANCE BILL AST 17 5 - 34 U/L [facility] INSURANCE BILL ALT 11 0 - 61 U/L [facility] INSURANCE BILL Blood BLOOD SPECIMEN / Unknown 08/24/2022 11:02 AM CDT 08/24/2022 Narrative Resulting Agency Comment Lab Testing performed at: [facility] [address] [place] [id number] Aleida Velasquez MD LAB - CHEMISTRY HUM[place]ERTO CLARK [facility] Organization Address City/State/ZIP Co de Phone Number [facility] INSURANCE BILL [address] [place] [address] * XR WRIST BILAT 3VW OR MORE (08/24/2022 10:49 AM CDT) Anatomical Region Laterality Modality Wrist / Hand, Upper Extremity Ra diographic Imaging 08/24/2022 2:46 PM CDT Narrative 08/24/2022 2:48 PM CDT Right hand 3 views Left hand 3 views Right wrist 3 views Left wrist 3 views History: Bilateral hand pain Findings/impression: Joint space narrowing with subchondral lucencies and osteopenia are noted bilaterally most significant at the first and second metacarpophalangeal joints. Mild degenerative changes are seen throughout the remaining interphalangeal joints. No fractures or dislocations are noted. There are some small erosions noted throughout the carpal bones left greater than right. > Interpreting Provider: Black Clemente DO on 08/24/2022 2:48 PM Procedure Note Black Clemente DO - 08/24/2022 Right hand 3 views Left hand 3 views Right wrist 3 views Left wrist 3 views History: Bilateral hand pain Findings/impression: Joint space narrowing with subchondral lucenciesand osteopenia are noted bilaterally most significant at the first andsecond metacarpophalangeal joints. Mild degenerative changes are seenthroughout the remaining interphalangeal joints. No fractures or dislocations are noted. There are some small erosions noted throughout the carpal bonesleft greater than right. > Interpreting Provider: Black Clemente DO on 08/24/2022 2:48 PM Aleida Velasquez MD DIAGNOSTIC IMAGING O RDERABLES * XR HAND BILAT 3VW OR MORE (08/24/2022 10:49 AM CDT) Anatomical Region Laterality Modality Upper Extremity, Wrist / Hand Ra diographic Imaging 08/24/2022 2:46 PM CDT Narrative 08/24/2022 2:48 PM CDT Right hand 3 views Left hand 3 views Right wrist 3 views Left wrist 3 views History: Bilateral hand pain Findings/impression: Joint space narrowing with subchondral lucencies and osteopenia are noted bilaterally most significant at the first and second metacarpophalangeal joints. Mild degenerative changes are seen throughout the remaining interphalangeal joints. No fractures or dislocations are noted. There are some small erosions noted throughout the carpal bones left greater than right. > Interpreting Provider: Black Clemente DO on 08/24/2022 2:48 PM Procedure Note Black Clemente DO - 08/24/2022 Right hand 3 views Left hand 3 views Right wrist 3 views Left wrist 3 views History: Bilateral hand pain Findings/impression: Joint space narrowing with subchondral lucenciesand osteopenia are noted bilaterally most significant at the first andsecond metacarpophalangeal joints. Mild degenerative changes are seenthroughout the remaining interphalangeal joints. No fractures or dislocations are noted. There are some small erosions noted throughout the carpal bonesleft greater than right. > Interpreting Provider: Black Clemente DO on 08/24/2022 2:48 PM Aleida Velasquez MD DIAGNOSTIC IMAGING O RDERABLES * (ABNORMAL) CYCLIC CITRUL PEPTIDE ANTIBODY IGG/IGA (CCP) (05/12/2021 1:30 PM [employer]) [facility] CCP Antibodies IgG/IgA >250(H) 0 - 19 units [facility] INSURANCE BILL Comment: Negative <20 Weak positive 20 - 39 Moderate positive 40 - 59 Strong positive >59 Blood BLOOD SPECIMEN / Unknown 05/12/2021 1:30 PM [employer] 05/12/2021 Narrative Resulting Agency Comment Lab Testing performed at: [address] [id number] Aleida Velasquez MD LAB - SEROLOGY ORDER UNIQUE [facility] INSURANCE BILL [address] [place] [address] * (ABNORMAL) RHEUMATOID FACTOR BLOOD QUANTITATIVE (05/12/2021 1:30 PM [employer]) [facility] Rheumatoid Factor >650.0(H) <14.0 IU/mL [facility] INSURANCE BILL Comment: Results confirmed on dilution. Blood BLOOD SPECIMEN / Unknown 05/12/2021 1:30 PM [employer] 05/12/2021 Narrative Resulting Agency Comment Lab Testing performed at: [facility] [address] [id number] Aleida Velasquez MD LAB - CHEMISTRY [place]UM[place]ERTO CLARK Performing Organization Address [facility] de Phone Number [facility] INSURANCE BILL [address] [place] [address] * C-REACTIVE PROTEIN (05/12/2021 1:30 PM [employer]) Only the most recent of9 resultswithin the time period is included. [facility] C-Reactive Protein 9 0 - 10 mg/L [facility] INSURANCE BILL Blood BLOOD SPECIMEN / Unknown 05/12/2021 1:30 PM [employer] 05/12/2021 Narrative Resulting Agency Comment Lab Testing performed at: [facility] [address] [id number] Aleida Velasquez MD LAB - CHEMISTRY HUMBERTO CLARK Performing Organization Address [facility] Phone Number [facility] INSURANCE BILL [address] [place] [address] * QUANTIFERON TB-GOLD (05/12/2021 1:30 PM [employer]) Only the most recent of2 resultswithin the time period is included. [facility] QuantiFERON Incubation Incubation performed. [facility] INSURANCE BILL QuantiFERON Criteria [facility] INSURANCE BILL Comment: The QuantiFERON-TB Gold Plus result is determined by subtracting the Nil value from either TB antigen (Ag) tube. The mitogen tube serves as a control for the test. QuantiFERON TB1 Ag Value 0.00 IU/mL [facility] INSURANCE BILL QuantiFERON TB2 Ag Value 0.00 IU/mL [facility] INSURANCE BILL QuantiFERON Nil Value 0.00 IU/mL [facility] INSURANCE BILL QuantiFERON Mitogen Value 3.73 IU/mL [facility] INSURANCE BILL QuantiFERON-TB Gold Plus Negative Negative [facility] INSURANCE BILL Comment:Chemiluminescence im munoassay methodology Blood BLOOD SPECIMEN / Unknown 05/12/2021 1:30 PM [employer] 05/12/2021 Narrative Resulting Agency Comment [facility] [address] [id number] Aleida Velasquez MD LAB - CHEMISTRY ORDE RABLES Performing Organization Address [facility]/ZIP Co de Phone Number [facility] INSURANCE BILL [address] [place] [address] * ERYTHROCYTE SEDIMENTATION RATE (05/12/2021 1:30 PM [employer]) Erythrocyte Sedimentation Rate Westergren 35 0 - 40 mm/hr [facility] INSURANCE BILL Blood BLOOD SPECIMEN / Unknown 05/12/2021 1:30 PM [employer] 05/12/2021 Narrative Resulting Agency Comment [facility] Testing performed [facility]: [facility] [address] [id number] Aleida Velasquez MD LAB - HEMATOLOGY ORD ERABLES Performing Organization Address City/[facility]/ZIP Co de Phone Number [facility] INSURANCE BILL [address] [place] [address] * HEPATITIS SCREEN ACUTE (05/12/2021 1:30 PM [employer]) Hepatitis A Virus Antibody IgM Negative Negative [facility] INSURANCE BILL Hepatitis B Virus Surface Antigen Negative Negative [facility] INSURANCE BILL Hepatitis B Core Virus Antibody IgM Negative Negative [facility] INSURANCE BILL Hepatitis C Antibody <0.1 0.0 - 0.9 s/co ratio [facility] INSURANCE BILL Comment: Negative: < 0.8 Indeterminate: 0.8 - 0.9 Positive: > 0.9 . The CDC recommends that a positive HCV antibody result be followed up with a HCV Nucleic Acid Amplification test (856498). Effective July 20, 2021 Hepatitis Panel (4) will be made non-orderable. [facility] code [id number] Acute Hepatitis. Blood BLOOD SPECIMEN / Unknown 05/12/2021 1:30 PM [employer] 05/12/2021 Narrative Resulting Agency Comment Lab Testing performed at: [facility] [address] [id number] Aleida Velasquez MD LAB - CHEMISTRY [place]ERTO CLARK [facility] INSURANCE BILL [address] [place] [address] * XR CHEST PA AND LATERAL (02/10/2017 9:52 AM CDT) Only the most recent of6 resultswithin the time period is included. Anatomical Region Laterality Modality Chest Radiographic Opal ging 02/10/2017 10:2 7 AM CDT Impressions 02/10/2017 10:28 AM CDT New nodular densities left costophrenic angle recommend chest CT. Probable small left effusion. Narrative 02/10/2017 10:28 AM CDT PA AND LATERAL CHEST INDICATION: Shortness of breath, chest pain FINDINGS: Cluster of nodular densities is seen at the left costophrenic angle with blunting of the left costophrenic angle. The most superior these may represent a nipple shadow, but the more inferior are concerning and new and additional evaluation warranted. Right lung is clear. Additional evaluation warranted. Procedure Note Paulette Velez MD - 02/10/2017 PA AND LATERAL CHEST INDICATION: Shortness of breath, chest pain FINDINGS: Cluster of nodular densities is seen at the left costophrenic angle with blunting of the left costophrenic angle. The most superior these may represent a nipple shadow, but the more inferior are concerning and new and additional evaluation warranted. Right lung is clear. Additional evaluation warranted. IMPRESSION New nodular densities left costophrenic angle recommend chest CT. Probable small left effusion. Chuy Hair MD DIAGNOSTIC IMAGING O RDERABLES * XR KNEE 4+ VW RIGHT (05/11/2016 2:06 PM [employer]) Anatomical Region Laterality Modality Lower Extremity Radiographic Opal ging 05/11/2016 2:07 PM [employer] Narrative 05/11/2016 2:07 PM [employer] Right Knee 4 Views INDICATION: Right knee pain FINDINGS: No fracture or malalignment is seen. No effusion. The joint space is maintained. No significant osteophytosis. Procedure Note Rachelle Mendoza MD - 05/11/2016 Right Knee 4 Views INDICATION: Right knee pain FINDINGS: No fracture or malalignment is seen. No effusion. The joint space is maintained. No significant osteophytosis. Chuy Hair MD DIAGNOSTIC IMAGING O RDERABLES * XR HIPS BILATERAL 2 VW W AP PELVIS (06/05/2015 11:10 AM [employer]) Anatomical Region Laterality Modality Pelvis, Lower Extremity Radiogra phic Imaging 06/05/2015 12:2 0 PM [employer] Narrative 06/05/2015 12:29 PM [employer] PELVIS AP LEFT HIP TWO VIEWS RIGHT HIP TWO VIEWS History: Bilateral hip pain. Findings: No fracture or malalignment. Hip joint spaces preserved. SI joints unremarkable. Edited by Lola Gonzalez on 06/05/2015 12:27 PM Procedure Note Tobi Schwab MD - 06/05/2015 PELVIS AP LEFT HIP TWO VIEWS RIGHT HIP TWO VIEWS History: Bilateral hip pain. Findings: No fracture or malalignment. Hip joint spaces preserved. SI joints unremarkable. Edited by Lola Gonzalez on 06/05/2015 12:27 PM Chuy Hair MD DIAGNOSTIC IMAGING O RDERABLES * TSH (01/14/2015 10:42 AM CDT) Only the most recent of2 resultswithin the time period is included. TSH 2.78 0.358 - 3.740 uIU/mL [facility] INSURANCE BILL Blood specimen (specimen) BLOOD SPECIMEN / Unknown 01/14/2015 10:42 AM CDT 01/14/2015 1:35 PM CDT Narrative [facility] INSURANCE BILL - 01/14/2015 5:13 PM CDT A courtesy copy of this report has been sent to the patient. Resulting Agency Comment [facility] [address] Kayce HERNANDEZ [phone] Chuy Hair MD LAB - CHEMISTRY [facility] Organization Address City/State/ZIP Co de Phone Number [facility] INSURANCE BILL * US EXTREMITY NON VASCULAR RIGHT (01/28/2012 12:55 PM CDT) Anatomical Region Laterality Modality Lower Extremity, Upper Extremity Other Narrative 01/28/2012 12:55 PM CDT Chuy Hair MD 01/28/2012 12:55 PM Bilateral Hand Ultrasound Protocol: Complete Bilateral Hand Study for RA Activity and Median nerve dimensions using MyLab5 Ultrasound Apparatus with a 438 probe at 18mHz. This standardized study consists of dorsal and volar views of the MCP (2,3,5) and PIP (2,3) joints, with medial and lateral views as clinically indicated to show erosive change. The wrists are evaluated with medial dorsal views (combined as PW ) and a transverse volar view (AW). The median nerve is identified using a sweep technique starting in the mid forearm and measured at the proximal margin of the Quadratus and at the entrance to the carpal tunnel wrist crease immediately proximal to the carpal tunnel. An increase in median nerve diameter of over 4 mm immediately proximal the flexor retinaculum suggests significant Median nerve compression. Synovitis, erosions and power doppler signal are recorded as 0-3. Tenosynovitis is noted when present. Incidental findings of tophi, crystal deposition, that might effect the diagnostic impression are recorded by the home health physical therapist under the direction of the attending physician and interpreted by Dr Hair. Right Synovitis Erosion Doppler Left Synovitis Erosion Doppler 2M 3 3 2 2M 2 3 0 2P 2 3 0 2P 0 0 0 3M 2 3 0 3M 3 0 0 3P 0 0 0 3P 2 3 0 5M 0 0 0 5M 2 0 0 PW 2 2 0 PW 2 3 0 RMN 8-11 mm2 LMN 8-13mm2 Findings : Joint damage is advanced erosions. Synovitis is compatible with severe synovitis with PDUS. Median nerve changes are enlarged on left. IMP: Left carpal tunnel syndrome by ultrasound criteria Advanced erosive inflammatory arthritis Contact Chuy Hair MD directly to discuss this case at [phone]. Procedure Note Chuy Hair MD - 01/28/2012 12:53 PM CDT Bilateral Hand Ultrasound Protocol: Complete Bilateral Hand Study for RA Activity and Median nerve dimensionsusing MyLab5 Ultrasound Apparatus with a 438 probe at 18mHz. Thisstandardized study consists of dorsal and volar views of the MCP (2,3,5)and PIP (2,3) joints, with medial and lateral views as clinicallyindicated to show erosive change. The wrists are evaluated with medialdorsal views (combined as PW ) and a transverse volar view (AW). Themedian nerve is identified using a sweep technique starting in the midforearm and measured at the proximal margin of the Quadratus and at theentrance to the carpal tunnel wrist crease immediately proximal to thecarpal tunnel. An increase in median nerve diameter of over 4 mmimmediately proximal the flexor retinaculum suggests significant Mediannerve compression. Synovitis, erosions and power doppler signal arerecorded as 0-3. Tenosynovitis is noted when present. Incidentalfindings of tophi, crystal deposition, that might effect the diagnosticimpression are recorded by the home health physical therapist under the direction of theattending physician and interpreted by Dr Hair. Right Synovitis Erosion Doppler Left Synovitis Erosion Doppler 2M 3 3 2 2M 2 3 0 2P 2 3 0 2P 0 0 0 3M 2 3 0 3M 3 0 0 3P 0 0 0 3P 2 3 0 5M 0 0 0 5M 2 0 0 PW 2 2 0 PW 2 3 0 RMN 8-11 mm2 LMN 8-13mm2 Findings : Joint damage is advanced erosions. Synovitis is compatiblewith severe synovitis with PDUS. Median nerve changes are enlarged onleft. IMP: Left carpal tunnel syndrome by ultrasound criteria Advanced erosive inflammatory arthritis Contact Chuy Hair MD directly to discuss this case at [phone]. Chuy Hair MD US ORDERABLES * US EXTREMITY LEFT COMPLT NONVASC (01/28/2012 12:55 PM CDT) Only the most recent of2 resultswithin the time period is included. Anatomical Region Laterality Modality Lower Extremity, Upper Extremity Other Narrative 01/28/2012 12:55 PM CDT Chuy Hair MD 01/28/2012 12:55 PM Bilateral Hand Ultrasound Protocol: Complete Bilateral Hand Study for RA Activity and Median nerve dimensions using MyLab5 Ultrasound Apparatus with a 438 probe at 18mHz. This standardized study consists of dorsal and volar views of the MCP (2,3,5) and PIP (2,3) joints, with medial and lateral views as clinically indicated to show erosive change. The wrists are evaluated with medial dorsal views (combined as PW ) and a transverse volar view (AW). The median nerve is identified using a sweep technique starting in the mid forearm and measured at the proximal margin of the Quadratus and at the entrance to the carpal tunnel wrist crease immediately proximal to the carpal tunnel. An increase in median nerve diameter of over 4 mm immediately proximal the flexor retinaculum suggests significant Median nerve compression. Synovitis, erosions and power doppler signal are recorded as 0-3. Tenosynovitis is noted when present. Incidental findings of tophi, crystal deposition, that might effect the diagnostic impression are recorded by the home health physical therapist under the direction of the attending physician and interpreted by Dr Hair. Right Synovitis Erosion Doppler Left Synovitis Erosion Doppler 2M 3 3 2 2M 2 3 0 2P 2 3 0 2P 0 0 0 3M 2 3 0 3M 3 0 0 3P 0 0 0 3P 2 3 0 5M 0 0 0 5M 2 0 0 PW 2 2 0 PW 2 3 0 RMN 8-11 mm2 LMN 8-13mm2 Findings : Joint damage is advanced erosions. Synovitis is compatible with severe synovitis with PDUS. Median nerve changes are enlarged on left. IMP: Left carpal tunnel syndrome by ultrasound criteria Advanced erosive inflammatory arthritis Contact Chuy Hair MD directly to discuss this case at [phone]. Procedure Note Chuy Hair MD - 01/28/2012 12:53 PM CDT Bilateral Hand Ultrasound Protocol: Complete Bilateral Hand Study for RA Activity and Median nerve dimensionsusing MyLab5 Ultrasound Apparatus with a 438 probe at 18mHz. Thisstandardized study consists of dorsal and volar views of the MCP (2,3,5)and PIP (2,3) joints, with medial and lateral views as clinicallyindicated to show erosive change. The wrists are evaluated with medialdorsal views (combined as PW ) and a transverse volar view (AW). Themedian nerve is identified using a sweep technique starting in the midforearm and measured at the proximal margin of the Quadratus and at theentrance to the carpal tunnel wrist crease immediately proximal to thecarpal tunnel. An increase in median nerve diameter of over 4 mmimmediately proximal the flexor retinaculum suggests significant Mediannerve compression. Synovitis, erosions and power doppler signal arerecorded as 0-3. Tenosynovitis is noted when present. Incidentalfindings of tophi, crystal deposition, that might effect the diagnosticimpression are recorded by the home health physical therapist under the direction of theattending physician and interpreted by Dr Hair. Right Synovitis Erosion Doppler Left Synovitis Erosion Doppler 2M 3 3 2 2M 2 3 0 2P 2 3 0 2P 0 0 0 3M 2 3 0 3M 3 0 0 3P 0 0 0 3P 2 3 0 5M 0 0 0 5M 2 0 0 PW 2 2 0 PW 2 3 0 RMN 8-11 mm2 LMN 8-13mm2 Findings : Joint damage is advanced erosions. Synovitis is compatiblewith severe synovitis with PDUS. Median nerve changes are enlarged onleft. IMP: Left carpal tunnel syndrome by ultrasound criteria Advanced erosive inflammatory arthritis Contact Chuy Hair MD directly to discuss this case at [phone]. Chuy Hair MD US ORDERABLES * XR CERVICAL SPINE W/FLEX AND EXT (01/27/2012 4:13 PM CDT) Anatomical Region Laterality Modality Spine Other Narrative 01/27/2012 4:13 PM CDT Chuy Hair MD 01/27/2012 4:13 PM NAD Procedure Note Chuy Hair MD - 01/27/2012 4:13 PM CDT NAD Chuy Hair MD DIAGNOSTIC IMAGING O RDERABLES * QUANTIFERON IN TUBE REFLEXED (PO REF LAB) (09/07/2011 1:27 PM CDT) QuantiFERON TB Gold Negative Negative [facility] ACCOUNT BILL QuantiFERON Criteria [facility] ACCOUNT BILL Comment: To be considered positive a specimen should have a TB Ag minus Nil value greater than or equal to 0.35 IU/mL and in addition the TB Ag minus Nil value must be greater than or equal to 25% of the Nil value. There may be insufficient information in these values to differentiate between some negative and some indeterminate test values. QuantiFERON TB Ag Value 0.12 IU/mL [facility] ACCOUNT BILL QuantiFERON Nil Value 0.12 IU/mL [facility] ACCOUNT BILL QuantiFERON Mitogen Value >10.00 IU/mL [facility] ACCOUNT BILL QFT TB Ag Minus Nil Value IU/mL 0.00 IU/mL [facility] ACCOUNT BILL Interpretation [facility] ACCOUNT BILL Comment: The QuantiFERON TB Gold (in Tube) assay is intended for use as an aid in the diagnosis of TB infection. Negative results suggest that there is no TB infection. In patients with high suspicion of exposure, a negative test should be repeated. A positive test indicates infection with Mycobacterium tuberculosis. Among individuals without tuberculosis infection, a positive test may be due to exposure to M. kansasii, M. szulgai or M. marinum. On the Internet, go to cdc.gov/tb for further details. 09/07/2011 1:27 PM CDT 09/07/2011 5:50 PM CDT Narrative Resulting Agency Comment [facility] [address] [id number] Chuy Hair MD LAB - CHEMISTRY [facility] Organization Address City/State/ZIP Co de Phone Number [facility] ACCOUNT BILL * US EXTREM RIGHT CMPLT NONVASC (08/18/2010 1:08 PM CDT) Chuy Hair MD ORDERABLES Care Teams Marketing And Communications Officer Relationship Specialty Start Date End Date Donis Ortez MD PCP - General Gastroenterology 05/26/15 Chuy Hair MD Rheumatology 05/21/11
--- OUTSIDE RECORDS SUMMARY | 2024-06-30 08:34 | XMS_ITS | Referral Summary ---
Author Organization [email or web address] Address [address] [place] [address] Care Team Providers Care Tableau Analyst Name Role Phone Chuy Hair MD Unavailable Unavailable Donis Ortez MD Primary Care Provider Source Comments [email or web address],non-owned Affiliates and Associated Physician Practices is amultiple site organization consisting of ambulatory clinics and hospital sitesin [place], [place], [place] and [place]. This disclosure is being madepursuant to the Care Everywhere program and may not contain all information available regarding this patient. Last updated 18.[email or web address] Allergies No known active allergies Medications * Be aware that medications may not be up to date on this document. Alwaysverify current medications with the patient. Medication Sig Dispensed Refills Start Date End Date Status Cholecalciferol (VITAMIN D) 1000 UNITS capsuleIndications :High risk medications (not anticoagulants) long-term use Take 1 Cap by mouth once daily. 06/07/2013 Active Additional Information Patient not taking.Reported on 08/24/2022 acetaminophen (TYLENOL) 500 MG tabletIndications: RA (rheumatoid arthritis) (HCC) Take 2 Tabs by mouth 3 times daily. Maximum allowable Acetaminophen amount = 4 Grams / 24 hours. 08/23/2013 Active Additional Information Patient not taking.Reported on 08/24/2022 sulfaSALAzine (AZULFIDINE) 500 MG tabletIndications: Rheumatoid Arthritis Take 2 Tabs by mouth 2 times daily. Indications: Rheumatoid Arthritis 120 Tab 12 07/12/2014 Active Additional Information Patient not taking.Reported on 05/12/2021 hydroxychloroquine (PLAQUENIL) 200 MG tabletIndications: RA (rheumatoid arthritis) (HCC) Take 1 Tab by mouth 2 times daily. 60 Tab 12 07/12/2014 Active Additional Information Patient not taking.Reported on 05/12/2021 gabapentin (NEURONTIN) 300 MG capsuleIndications :Insomnia Take 1-2 Caps by mouth at bedtime. 60 Cap 6 07/12/2014 Active methotrexate 2.5 MG tabletIndications: RA (rheumatoid arthritis) (HCC) Take 6 Tabs by mouth every 7 days. 24 Tab 12 07/12/2014 Active Additional Information Patient not taking.Reported on 05/12/2021 mirtazapine (REMERON) 30 MG tabletIndications: Insomnia,Weight loss Take 1 Tab by mouth at bedtime 30 Tab 5 01/14/2015 Active Additional Information Patient not taking.Reported on 05/12/2021 methadone (DOLOPHINE) 10 MG tabletIndications: RA (rheumatoid arthritis) (HCC) Take 0.5-1 Tabs by mouth 4 times daily as needed after meals/at bedtime for Pain Earliest Fill Date: 02/11/15 120 Tab 0 02/11/2015 Active Additional Information Patient not taking.Reported on 05/12/2021 ALPRAZolam (XANAX) 0.25 MG tabletIndications: Insomnia Take 1 Tab by mouth at bedtime 30 Tab 0 02/11/2015 Active Additional Information Patient not taking.Reported on 05/12/2021 traMADol (ULTRAM) 50 MG tablet TAKE ONE TO TWO TABLETS BY MOUTH THREE TIMES DAILY NEEDED FOR PAIN. TAKE WITH OVER THE COUNTER ACETAMINOPHEN. 180 Tab 0 02/18/2015 Active famotidine (PEPCID) 40 MG tablet TAKE 1 TABLET(40 MG) BY MOUTH DAILY 09/29/2020 Active insulin syringe-needle (BD ULTRAFINE) 29G X 1/2 1 ML syringe Use 1 syringe to inject MTX subcutaneously every 7 days. (100 syringes/box). 100 Each 05/12/2021 Active Additional Information Patient not taking.Reported on 08/24/2022 tofacitinib 24hr (XELJANZ XR) 11 MG tablet Take 1 (one) tablet by mouth once daily 30 tablet 11 05/27/2021 Active Eliquis 5 MG tablet Take 1 (one) tablet by mouth once daily 05/07/2022 Active atorvastatin (Lipitor) 20 MG tablet Take 1 (one) tablet by mouth every evening 06/04/2022 Active folic acid (Folvite) 1 MG tablet Take 1 (one) tablet by mouth once daily 90 tablet 4 08/24/2022 Active predniSONE (Deltasone) 5 MG tabletIndications: Rheumatoid arthritis involving multiple sites, unspecified whether rheumatoid factor present (HCC) Take 1 (one) tablet by mouth once daily 90 tablet 1 08/24/2022 Active methotrexate (Rheumatrex) 2.5 MG tablet TAKE 4 TABLETS BY MOUTH ONCE IN WEEK 1, AND THEN 6 TABLETS ONCE EVERY WEEK. 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 Effective July 20, 2021 Hepatitis Panel (4) will be made non-orderable. [facility] offers order code [id number] Acute Hepatitis. Blood BLOOD SPECIMEN / Unknown 05/12/2021 1:30 PM MINCEMEAT MAKER 05/12/2021 Narrative Resulting Agency Comment Lab Testing performed at: [facility] [id number] Aleida Velasquez MD LAB - CHEMISTRY [facility] INSURANCE BILL [address] [place] [address] from Last 3 Months or Most Recently Relevant to Health Maintenance Care Teams Tableau Analyst Relationship Specialty Start Date End Date Donis Ortez MD PCP - General Gastroenterology 05/26/15 Chuy Hair MD Rheumatology 05/21/11
--- OUTSIDE RECORDS SUMMARY | 2024-06-30 08:34 | XMS_ITS | Clinical Summary ---
Author Organization [facility] Address [address] [place] [address] Care Team Providers Care Genetic Counselor Name Role Phone Chuy Hair MD Unavailable Unavailable Donis Ortez MD Primary Care Provider Source Comments [facility],non-owned Affiliates and Associated Physician Practices is amultiple site organization consisting of ambulatory clinics and hospital sitesin [place], [place]. This disclosure is being madepursuant to the Care Everywhere program and may not contain all information available regarding this patient. 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 Plan of Treatment Health Maintenance Due Date Last Done Comments BONE DENSITY TESTING 1958 COLOGUARD (AGES 45-75) - COLON CA SCREENING 1958 COLON MONITORING 1958 COLONOSCOPY - COLON CA SCREENING 1958 CT COLONOGRAPHY - COLON CA SCREENING 1958 Colorectal Cancer Screening 1958 FIT - COLON CA SCREENING 1958 FLEX SIG - COLON CA SCREENING 1958 MAMMOGRAM 1958 MEDICARE AWV 12 MONTHS 1958 PAP SMEAR 1958 HIV SCREENING 1973 DTAP/TDAP/TD VACCINES (1 - Tdap) 1977 PNEUMOCOCCAL VACCINE 50+ (1 of 2 - PCV) 1977 LUNG CANCER SCREENING 2008 ZOSTER VACCINE (1 of 2) 2008 COVID-19 VACCINE (4 - season) 2024 03/05/2021, 08/28/2020, 07/31/2020 INFLUENZA VACCINE (#1) 2024 , 02/13/2021, 01/29/2020, Additional history exists DEPRESSION SCREENING 05/09/2024 Respiratory Syncytial Virus (RSV) Vaccine Pt: or over 60 yrs (1 - 1-dose 75+ series) 2033 HEPATITIS C SCREENING Completed 05/12/2021 HEPATITIS B VACCINE Aged Out No longe r eligible based on patient's age to complete this topic HIB VACCINE Aged Out No longer eligi ble based on patient's age to complete this topic HPV VACCINE Aged Out No longer eligi ble based on patient's age to complete this topic MENINGOCOCCAL (Group B) VACCINE Aged Out No longer eligible based on patient's age to complete this topic MENINGOCOCCAL VACCINE Aged Out No dinah viviana eligible based on patient's age to complete this topic Procedures Procedure Name Priority Date/Time Associated Diagnosis Comments HEPATITIS SCREEN ACUTE Routine 05/12/2021 1:30 PM ELECTRIC SEALING MACHINE OPERATOR Rheumatoid arthritis involving multiple sites, unspecified whether rheumatoid factor present (HCC) Fatigue, unspecified type from Last 3 Months or Most Recently Relevant to Health Maintenance Results * HEPATITIS SCREEN ACUTE (05/12/2021 1:30 PM ELECTRIC SEALING MACHINE OPERATOR) Hepatitis A Virus Antibody IgM Negative Negative [...] with a HCV Nucleic Acid Amplification test ([id number]). Effective July 20, 2021 Hepatitis Panel (4) will [facility] made [facility]-orderable. [id number] Acute Hepatitis. Blood BLOOD SPECIMEN / Unknown 05/12/2021 1:30 PM ELECTRIC SEALING MACHINE OPERATOR 05/12/2021 Narrative Resulting Agency Comment Lab Testing performed at: [facility] [address] [id number] Aleida Velasquez MD LAB - CHEMISTRY [facility] INSURANCE BILL [address] [place] [address] from Last 3 Months or Most Recently Relevant to Health Maintenance Care Teams Genetic Counselor Relationship Specialty Start Date End Date Donis Ortez MD PCP - General Gastroenterology 05/26/15 Chuy Hair MD Rheumatology 05/21/11
--- OUTSIDE RECORDS SUMMARY | 2024-06-30 08:35 | XMS_ITS | Encounter Summary ---
Author Organization [facility] Address [address] [place] [address] Care Team Providers Care Meat Cutter Name Role Phone Christian Christine NP Primary Care Provider [phone] Black Gann MD Unavailable Hayden March MD Unavailable [phone] Primitivo Gil MD Primary Care Provider + Miscellaneous, Not In File Primary Care Provider Unavailable Eladio Hess MD Primary Care Provider [phone] Amauri Bro MD Primary Care Provider [phone] Antoinette Richey MA Unavailable Unavailable Encounter Details Date Type Department Care Team (Late st Contact Info) Description 07/01/2005 [place] [facility] [place] [address] [place] [address] Scanning, Provider Social History Tobacco Use Types Packs/Day Years Used Date Smoking Tobacco: Never Assessed Comments Unknown Sex and Gender Information Value Date Recorded Sex Assigned at Not on file 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 Gender Identity Not on file Sexual Orientation Not on file documented as of this encounter Plan of Treatment Not on file documented as of this encounter Procedures Procedure Name Priority Date/Time Associated Diagnosis Comments SCAN - RADIOLOGY/IMAGING 07/01/2005 documented in this encounter Results * SCAN - RADIOLOGY/IMAGING (07/01/2005) Anatomical Region Laterality Modality Other us Provider Scanning Edited Result - Final documented in this encounter Visit Diagnoses Not on filedocumented in this encounter Additional Health Concerns Infection Onset Date Last Indicated Resolved Time COVID: Suspected 10/15/2019 10/15/2019 10/17/2019 4:04 AM CDT Respiratory Infection (DANNIE), contact + droplet Comment:Automatically added due to negative COVID-19 result. 10/17/2019 10/17/2019 10/31/2019 3:0 5 AM CDT COVID: Suspected 03/10/2021 03/10/2021 03/10/2021 6:59 AM CDT COVID: Suspected 11/15/2021 11/15/2021 11/15/2021 4:40 PM CDT COVID19 11/15/2021 11/15/2021 11/25/2021 3:05 AM CDT documented as of this encounter Care Teams Meat Cutter Relationship Specialty Start Date End Date Christian Christine NP [address] [place] [address] PCP - General 08/22/17 03/09/21 Primitivo Gil MD [address] [place] [address] [address] [place] [address] PCP - General 03/10/21 11/14/21 Miscellaneous, Not In File PCP - General 11/15/21 Eladio Hess MD PCP - General 11/16/21 02/15/23 Amauri Bro MD [address] [place] [address] PCP - General Family Medicine 02/16/23 Black Gann MD [address] [place] [address] Consulting Physician General Surgery 11/24/20 Hayden March MD [address] [place] [address] Referring Physician Cardiology 11/24/20 Antoinette Richey, VICTORINA [address] [place] [address] [address] [place] [address] ACO Care Pellet Machine Operator 02/07/24 02/07/24 documented as of this encounter
--- OUTSIDE RECORDS SUMMARY | 2024-06-30 08:35 | XMS_ITS | Clinical Summary ---
Author Organization [facility] Address [address] [place] [address] Phone Care Team Providers Care Assistant Program Manager Name Role Phone Christain Christine APRN, VOICE DATA COMMUNICATIONS ENGINEER Primary Care Provider + Allergies No known active allergies Medications ALPRAZolam (XANAX) 0.25 MG Tablet Take 0.25 mg by mouth 2 times daily as needed (takes at night). 6 Active FLUoxetine (PROZAC) 40 MG Capsule Take 40 mg by mouth daily. 6 Active hydroxychloroq uine (PLAQUENIL) 200 MG Tablet Take 200 mg by mouth daily. 6 Active ibuprofen (MOTRIN) 800 MG Tablet Take 800 mg by mouth as needed. 6 Active methadone (DOLOPHINE) 10 MG Tablet Take 10 mg by mouth daily. 6 Active methotrexate 2.5 MG TabletIndicati ons:fridays Take 2.5 mg by mouth once a week. 6 tablets Indications: fridays 6 Active predniSONE (DELTASONE) 5 MG Tablet Take 5 mg by mouth daily. 5 Active SULFAZINE 500 MG Tablet Take 500 mg by mouth daily. 6 Active XELJANZ 5 MG Tablet Take 5 mg by mouth 2 times daily. 6 Active traMADol (ULTRAM) 50 MG Tablet Take 50 mg by mouth as needed (takes once or twice a day). 6 Active acetaminophen (TYLENOL) 325 MG Tablet Take 1 Tab by mouth every 6 hours as needed for Pain or Fever (for temperature greater than 100.4 F). Do not exceed 4000 mg of acetaminophen in 24 hour from all sources. 6 Active ondansetron (ZOFRAN) 4 MG Tablet Take 1-2 Tabs by mouth every 8 hours as needed for Nausea. 10 Tab 0 6 Active dicyclomine (BENTYL) 20 MG Tablet Take 1 Tab by mouth every 6 hours. 30 Tab 0 6 Active predniSONE (DELTASONE) 20 MG Tablet Take 1 Tab by mouth 2 times daily. Use as directed. 10 Tab 0 6 Active acetaminophen (TYLENOL) 325 MG Tablet Take 1 Tab by mouth every 6 hours as needed for Pain or Fever (for temperature greater than 100.4 F). Do not exceed 4000 mg of acetaminophen in 24 hour from all sources. 6 Active Active Problems Problem Noted Date Diagnosed Date Lumbar spinal stenosis 07/03/2015 Family History Medical History Relation Name Comments Cirrhosis Father Cancer Mother cervical, bladd er, bowel Hypertension Mother Kidney Disease Mother kidney failur e Thyroid Disease Mother Relation Name Status Comments Father Mother Social History Tobacco Use Types Packs/Day Years Used Date Smoking Tobacco: Every Day Cigarettes 1 30 Smokeless Tobacco: Never Alcohol Use Standard Drinks/Week Comments No 0 (1 standard drink = 0.6 oz pur e alcohol) Comments No Sex and Gender Information Value Date Recorded Sex Assigned at Not on file Legal Sex Female 8:41 PM CDT Gender Identity Not on file Sexual Orientation Not on file Last Filed Vital Signs Vital Sign Reading Time Taken Comments Blood Pressure 90/60 07/30/2015 6:15 PM CDT Pulse 70 07/30/2015 6:15 PM CDT Temperature 35.7 C (96.3 F) 07/30/2015 6:15 PM CDT Respiratory Rate 16 07/30/2015 6:15 PM CDT Oxygen Saturation 96% 07/30/2015 6:15 PM CDT Inhaled Oxygen Concentration - - Weight 49.9 kg (110 lb) 07/28/2015 1:57 PM CDT Height 170.2 cm (5' 7 ) 07/28/2015 1:57 PM CDT Body Mass Index 17.23 07/28/2015 1:57 PM CDT Plan of Treatment Health Maintenance Due Date Last Done Comments DEXA Bone Density 1960 Hepatitis C Virus (HCV) Screening 1960 TdaP Immunization 1958 SARS-COV-2 Immunization (#1) 12/25/1963 Pneumococcal Immunization Co mbined (1 of 2 - PCV) 1964 Zoster Immunization (1 of 2) 1977 Pap Smear 12/25/1979 Cervical Cancer Screening (CCS) 1988 HPV/Cotest 1988 Colonoscopy 12/25/2003 Colorectal Cancer Screening 12/25/2003 Cologuard 2008 Immunochemical Fecal Occult Blood 2008 Mammogram 2008 Pneumococcal Immunization (5 0+ years) (1 of 1 - PCV) 2008 Respiratory Syncytial Virus (RSV) Immunization (Adult) (1 - Risk 60-74 years 1-dose series) 2018 Influenza Immunization (#1) 2024 Hepatitis B Immunization Aged Out No longer eligible based on patient's age to complete this topic Meningococcal Immunization (ACWY) Aged Out No longer eligible based on patient's age to complete this topic Rotavirus Immunization Aged Out No lo nger eligible based on patient's age to complete this topic Insurance MEDICARE [place]ICAID [place] Care Teams Assistant Program Manager Relationship Specialty Start Date End Date Christian Christine APRN, VOICE DATA COMMUNICATIONS ENGINEER [address] [place] [address] PCP - General Internal Medicine 07/03/15
--- OUTSIDE RECORDS SUMMARY | 2024-06-30 08:35 | XMS_ITS | Clinical Summary ---
Author Organization [facility] Address [address] [place] [address] Care Team Providers Care Public Health Representative Name Role Phone Black Gann MD Unavailable Hayden March MD Unavailable Amauri Bro MD Primary Care Provider [phone] Allergies No known active allergies Medications FLUoxetine (PROzac) 20 mg capsule Take 1 capsule (20 mg total) by mouth daily 90 capsule 3 02/17/20 23 Active ibuprofen (ADVIL,MOTRIN) 800 mg tablet TAKE 1 TABLET(800 MG) BY MOUTH EVERY 8 HOURS NEEDED FOR PAIN 270 tablet 3 02/02/20 24 Active Additional Information Patient not taking.Reported on 06/25/2024 pravastatin (PRAVACHOL) 10 mg tabletIndications: Mixed hyperlipidemia Take 1 tablet (10 mg total) by mouth daily 90 tablet 03/08/20 24 025 Active predniSONE (DELTASONE) 10 mg tablet TAKE 5 TABLETS BY MOUTH DAILY FOR 2 DAYS, 4 TABLETS DAILY FOR 2 DAYS, CONTINUE TO DECREASE BY 1 TABLET EVERY 2 DAYS UNTIL ALL TAKEN 30 tablet 06/25/19 25 Active busPIRone (BUSPAR) 5 mg tabletIndications: Generalized Anxiety Disorder Take 1 tablet (5 mg total) by mouth 3 (three) times a day 90 tablet 2 06/25/19 25 026 Active ASA-acetaminophen- salicyl-caff 162 mg-110 mg -152 mg-32.4 mg tablet Take by mouth 06/09/ 025 Discontin ued(Patie nt Reported) tocilizumab (ACTEMRA) 162 mg/0.9 mL syringe Inject 0.9 mL (162 mg total) under the skin every 14 (fourteen) days 025 Discontin ued(Patie nt Reported) fluticasone propionate (FLONASE) 50 mcg/actuation nasal spray Administer 2 sprays into each nostril daily 3 each 4 02/17/20 23 025 Discontin ued(Patie nt Reported) cetirizine (ZyrTEC) 10 mg tablet Take 1 tablet (10 mg total) by mouth daily as needed for allergies 90 tablet 4 02/17/20 23 025 Discontin ued(Patie nt Reported) predniSONE (DELTASONE) 10 mg tablet TAKE 5 TABLETS BY MOUTH DAILY FOR 2 DAYS, 4 TABLETS DAILY FOR 2 DAYS, CONTINUE TO DECREASE BY 1 TABLET EVERY 2 DAYS UNTIL ALL TAKEN 30 tablet 03/08/20 24 025 Discontin ued(Reord er) Active Problems Problem Noted Date Diagnosed Date Recurrent major depression 02/16/2023 Assessment & Plan (06/25/2024 11:52 AM PHARMACOLOGY PROFESSOR): Well controlled, good relief with medication no significant depression, patient does reports some anxiety Continue fluoxetine 20 mg daily, start BuSpar 5 mg t.i.d. Assessment & Plan (04/18/2023 3:42 PM PHARMACOLOGY PROFESSOR): Stable, currently well controlled Continue Fluoxetine 20 mg daily Follow up 3 months; sooner as needed Assessment & Plan (02/24/2023 4:56 PM CDT): Restart previous medications Prozac 20 mg daily Family history of colon cancer in mother 023 History of colon polyps 11/01/2022 Rheumatoid arthritis involving multiple sites (C MS/HCC) 11/24/2020 Assessment & Plan (06/25/2024 11:52 AM PHARMACOLOGY PROFESSOR): Not well controlled; continues to have significant swelling deformity right hand, now developing swelling and left hands; patient did not tolerate previous medications Recommend engagement with rheumatology for other medical options Continue prednisone p.r.n. for severe flares Assessment & Plan (04/18/2023 3:41 PM PHARMACOLOGY PROFESSOR): Follows with Rheumatology [facility] every 14 days Obtain CBC prior to next appt Assessment & Plan (02/16/2023 3:35 PM CDT): Follows with rheumatology; on -Dr. Velasquez -[facility], every 14 days -generally well controlled for patient [place]k hernia 11/24/2020 Pulmonary nodule 11/24/2020 Assessment & Plan (04/18/2023 3:36 PM PHARMACOLOGY PROFESSOR): Reviewed CT scan results with patient Will repeat low dose CT in 12 months Chest pain 11/23/2020 Non-cardiac chest pain 10/23/2019 Assessment & Plan (10/23/2019 2:44 PM CDT): Pt seen in ER a few times this month for complaints of sharp chest pain that radiates into back and often up into her throat. She had labs done that were overall unremarkable. CT showed some pulmonary abnormalities and pulmonary nodules and she has an appt with reed cleaner next week. She also had cardiac workup and these were negative. Pt admits to having GERD for years on a daily basis and does not take any medication. She is also a heavy smoker. Pt was given pepcid by ER doctor and says this helped with GERD somewhat. Pt called in more refills for Pepcid 40mg daily and will schedule EGD. BMI 25.0-25.9,adult 10/23/2019 Tobacco use 10/23/2019 Assessment & Plan (06/25/2024 11:50 AM PHARMACOLOGY PROFESSOR): Patient continues to smoke about 1 pack per day, no current thoughts on quitting, has high levels of anxiety impacts her Will continue with annual lung cancer screening; encouraged patient to continue to evaluate causes of her continued tobacco use and ways to limit use Assessment & Plan (04/18/2023 3:41 PM PHARMACOLOGY PROFESSOR): Still smokes 1 ppd; not interested in quitting at this time CT scan showed one new nodule and the rest stable Repeat CT in 12 months Assessment & Plan (02/24/2023 4:55 PM CDT): Has some thoughts on quiting -smokes about 1 ppd; has used patches in past, with no relief -worried about lungs -has been smoking for 43 years old -has lost 35-40 lbs in last 6-9 months Based on weight loss, would recommend follow-up in imaging: Especially if weight loss continues Assessment & Plan (10/23/2019 2:45 PM CDT): Smokes 1 pack daily for 45 years. Gastroesophageal reflux disease 10/23/2019 Overview (10/23/2019): Added automatically from request for surgery [id number] Assessment & Plan (02/24/2023 4:55 PM CDT): Has been decreasing, calming down; rare use of famotidine To monitor, avoid foods that trigger acid reflux Screen for colon cancer 10/23/2019 Overview (10/23/2019): Added automatically from request for surgery [id number] Sprain of anterior talofibular ligament of right ankle 09/17/2019 Chronic obstructive lung disease 10/10/2018 Assessment & Plan (06/25/2024 11:51 AM PHARMACOLOGY PROFESSOR): Difficulty with breathing, generally well controlled; encourage work towards smoking cessation; if breathing worsens, would evaluate for benefit from inhalers Assessment & Plan (02/24/2023 4:56 PM CDT): Breathing has generally been good for patient; has some congestion at night with laying down flat -no current breathing treatments Will continue to monitor, further evaluated patient would benefit from daily inhalers Mixed hyperlipidemia 09/11/2018 Assessment & Plan (06/25/2024 11:51 AM PHARMACOLOGY PROFESSOR): Not well controlled, LDL and total cholesterol elevated; continue pravastatin 10 mg daily; encourage low-fat high-fiber Assessment & Plan (04/18/2023 3:40 PM PHARMACOLOGY PROFESSOR): Not well controlled; last lipid panel not at goal Start Pravastatin 10 mg daily Follow up in 3 months; obtain labs prior to appt Assessment & Plan (02/24/2023 4:56 PM CDT): Unclear controlled; patient has not been taking medications; will check lipid panel, evaluate if patient would benefit from statin therapy Lumbar spinal stenosis 07/03/2015 Assessment & Plan (06/25/2024 11:51 AM PHARMACOLOGY PROFESSOR): Well controlled, no major symptoms at this time; continue ibuprofen 800 mg p.r.n. for severe pain Assessment & Plan (02/16/2023 3:38 PM CDT): Has been doing well for patient -no need for spinal injections at this time - Insomnia 07/27/2012 Overview (02/16/2023): 07/27/2012 possily due to opiates will stop at night and stick with Tylenol and gabapentin at HS Assessment & Plan (02/24/2023 4:56 PM CDT): Wakes up 2-3 times per night -no known reason, not gasping for air Will continue to monitor, start Prozac for anxiety; re-evaluate at follow-up appointment Resolved Problems Problem Noted Date Diagnosed Date Resolved Date GERD (gastroesophageal reflux disease) 10/23/2019 04/18/2023 Assessment & Plan (10/23/2019 2:45 PM CDT): Pt says this occurs daily. She gets regurgitation and burning in throat along with the mid chest pain. Will place her on famotidine 40mg daily and schedule EGD. Encounters Date Type Department Care Team Description 06/25/2024 9:30 AM PHARMACOLOGY PROFESSOR Lab [facility] Outpatient Lab at [address] [address] Mixed hyperlipidemia (Primary Dx) 06/25/2024 8:41 AM PHARMACOLOGY PROFESSOR - 06/25/2024 11:59 PM PHARMACOLOGY PROFESSOR Hospital Encounter [address] [address] Mixed hyperlipidemia Discharge Disposition: Discharge to home or self care 06/25/2024 8:30 AM PHARMACOLOGY PROFESSOR Office Visit [facility] Primary Care at [address] [place] [id number] Amauri Bro MD Medicare annual wellness visit, subsequent (Primary Dx); Post-menopause; Encounter for screening mammogram for malignant neoplasm of breast; Mixed hyperlipidemia; Tobacco use; Centrilobular emphysema (HCC); Spinal stenosis of lumbar region without neurogenic claudication; Nicotine dependence, cigarettes, uncomplicated; Bilateral carpal tunnel syndrome; Rheumatoid arthritis involving multiple sites, unspecified whether rheumatoid factor present (HCC); Recurrent major depressive disorder, remission status unspecified (HCC) from Last 3 Months Immunizations Immunization Administration Dates Next Due Influenza, Quadrivalent, Split, Intramuscular ,02/10/2017 Influenza, Quadrivalent, Spl it, Preservative Free, Intramuscular 02/16/2023,01/29/2020 Influenza, Trivalent, Preservative Free, Intramu scular 02/19/2016 Influenza, Unspecified 02/06/2022 Pneumococcal Conjugate Pcv20 06/25/2024 Surgical History Surgery Date Site/Laterality Comments LUNG SURGERY Left removed rheumatoid nodule THROAT SURGERY nodule removed APPENDECTOMY SECTION OVARY SURGERY Left COLONOSCOPY 11/22/2006 COLONOSCOPY 11/20/2019 UPPER GASTROINTESTINAL ENDOSCOPY ORAL SURGERY Left plate placed; repair of mandibular fracture Medical History Medical History Date Comments Rheumatoid aortitis GERD (gastroesophageal reflux disease) COPD (chronic obstructive pulmonary disease) (HC C) Arthritis Family History Medical History Relation Name Comments Liver disease Father Liver cancer Sister Relation Name Status Comments Father Sister Social History Tobacco Use Types Packs/Day Years Used Date Smoking Tobacco: Every Day Cigarettes 1 40 Smokeless Tobacco: Never Tobacco Cessation:Ready to Q uit: No; Counseling Given: No Alcohol Use Standard Drinks/Week Comments No 0 (1 standard drink = 0.6 oz pur e alcohol) AUDIT-C Answer Date Recorded Q1: How often do you have a drink containing alcohol? Never 02/16/2023 Q2: How many drinks containi ng alcohol do you have on a typical day when you are drinking? Patient does not drink Q3: How often do you have si x or more drinks on one occasion? Never 02/16/2023 PHQ-2 Answer Date Recorded PHQ-2 Total Score (If total score is 3 or more points, staff should administer the PHQ-9) 0 06/25/2024 Personal Safety Answer Date Recorded Have you ever been in or are you currently in a harmful physical or emotional relationship or is someone making you feel afraid or unsafe? Denies 02/06/2024 Comments No Sex and Gender Information Value Date Recorded Sex Assigned at Not on file Legal Sex Female 8:18 AM PHARMACOLOGY PROFESSOR Gender Identity Not on file Sexual Orientation Not on file Obstetrics History Last Filed Vital Signs Vital Sign Reading Time Taken Comments Blood Pressure 118/68 06/25/2024 8:13 AM PHARMACOLOGY PROFESSOR Pulse 44 06/25/2024 8:13 AM PHARMACOLOGY PROFESSOR Temperature 37 C (98.6 F) 06/25/2024 8:13 AM PHARMACOLOGY PROFESSOR Respiratory Rate 17 02/06/2024 7:05 AM CDT Oxygen Saturation 92% 06/25/2024 8:13 AM PHARMACOLOGY PROFESSOR Inhaled Oxygen Concentration - - Weight 59 kg (130 lb) 06/25/2024 8:13 AM PHARMACOLOGY PROFESSOR Height 170.2 cm (5' 7 ) 06/25/2024 8:13 AM PHARMACOLOGY PROFESSOR Body Mass Index 20.36 06/25/2024 8:13 AM PHARMACOLOGY PROFESSOR Plan of Treatment Health Maintenance Due Date Last Done Comments Cervical Cancer Screening 1960 Osteoporosis Screening-Bone Density Scan 1960 DTaP/Tdap/Td Vaccine (1 - Tdap) 1969 Zoster Vaccine (1 of 2) 2008 Breast Cancer Screening-Mammogram 05/16/2016 016 Covid-19 Vaccine (4 - 2023-2 5 season) 2024 03/05/2021, 08/28/2020, 07/31/2020 Influenza Vaccine (#1) 2024 , 02/06/2022, 01/29/2020, Additional history exists Lung Cancer Screening 04/09/2024 04/09/2023 Depression Screening 06/25/2025 06/25/2024, 04/18/2023, 02/16/2023 Fall Risk Assessment 06/25/2025 06/25/2024, 02/16/2023, 11/24/2020 Well Visit 65+ 06/25/2025 06/25/2024 Colon Cancer Screening-Colonoscopy 11/19/2029 11/20/2019 Colon Cancer Screening-CT Colonography Discontinued 11/20/2019 Colon Cancer Screening-DNA Stool Discontinued 11/20/19 20 Colon Cancer Screening-FIT Discontinued 11/20/2019 Colon Cancer Screening-Sigmoidoscopy Discontinued 11/20/2019 Hepatitis B Screening Completed 10/13/2023 Hepatitis C Screening Completed 10/13/2023 Pneumococcal vaccine 65+ Completed 06/25/2024 Medical Devices Implanted Type Area Online Retailer Device Identifier Shelf Expiration Date Model / Serial / Lot Jaw Left: Mandible Description:2009 Broken jaw Procedures Procedure Name Priority Date/Time Associated Diagnosis Comments EGFR Routine 06/25/2024 8:41 AM PHARMACOLOGY PROFESSOR Mixed hyperlipidemia DIFFERENTIAL AUTO Routine 06/25/2024 8:4 1 AM PHARMACOLOGY PROFESSOR Mixed hyperlipidemia COMPREHENSIVE METABOLIC PANEL Routine 06/25/2024 8:41 AM PHARMACOLOGY PROFESSOR Mixed hyperlipidemia CBC WITH AUTO DIFFERENTIAL Routine 06/25/2024 8:41 AM PHARMACOLOGY PROFESSOR Mixed hyperlipidemia LIPID PANEL Routine 06/25/2024 8:41 AM PHARMACOLOGY PROFESSOR Mixed hyperlipidemia HEPATITIS C ANTIBODY Routine 10/13/2023 10:31 AM CDT Need for hepatitis C screening test CT LUNG CANCER SCREENING Schedule Routine, Read Routine (OP Routine) 04/09/2023 7:50 AM PHARMACOLOGY PROFESSOR Tobacco use Nicotine dependence, cigarettes, uncomplicated COLONOSCOPY 11/20/2019 10:14 AM CDT DIAGNOSTIC MAMMOGRAM BILATERAL W LIZETTE Routine 05/16/2015 7:40 AM PHARMACOLOGY PROFESSOR from Last 3 Months or Most Recently Relevant to Health Maintenance Results * eGFR (06/25/2024 8:41 AM PHARMACOLOGY PROFESSOR) eGFR >90 >=60 mL/min/1. 73 m2 Comment: Interpretive Data Reference Interval Normal >/= 90 mL/min/1.73m2 Mildly decreased* 60 - 89 mL/min/1.73m2 Mildly to moderately decreased 45 - 59 mL/min/1.73m2 Moderately to severely decreased 30 - 44 mL/min/1.73m2 Severely decreased 15 - 29 mL/min/1.73m2 Kidney Failure < 15 mL/min/1.73m2 *Relative to young adult level Estimated glomerular filtration rate is determined by the 2020 CKD-EPI equation recommended by the National Kidney Foundation (A Unifying Approach to GFR Estimation: Recommendations of the NKF-ASK Task Force on Reassessing the Inclusion of Race in Diagnosing Kidney Disease, JASN 202). The CKD-EPI equation should not be used for patients with unstable renal function and has not been validated in children and those over 70. Current interpretive data was last reviewed 2021. Blood 06/25/2024 8:41 AM PHARMACOLOGY PROFESSOR 06/25/2024 3:30 PM PHARMACOLOGY PROFESSOR us Amauri Bro MD LAB BLOOD ORDERABLES Trena patricio Result [facility] [id number] [address] Department [place] [address] * (ABNORMAL) Differential, auto (06/25/2024 8:41 AM PHARMACOLOGY PROFESSOR) Neutrophil abs 1.1(L) 1.5 - 6.5 K/cumm Imm gran abs 0.0 0.0 - 0.1 K/cumm [facility] Lymphocyte abs 2.5 0.8 - 3.3 K/cumm [facility] Monocyte abs 0.6 0.2 - 0.8 K/cumm [facility] Eosinophil abs 0.4 0.0 - 0.5 K/cumm [facility] Basophil abs 0.0 0.0 - 0.1 K/cumm [facility] Neutrophil pct 23.0 % [facility] Comment: Interpretive Data Percent cell count reference ranges are not reported, since discordance with absolute values may lead to misinterpretation of CBC data. Current Interpretive Data was last revised on 2017. Imm gran pct 0.0 % [facility] Comment: Interpretive Data Percent cell count reference ranges are not reported, since discordance with absolute values may lead to misinterpretation of CBC data. Current Interpretive Data was last revised on 2017. Lymphocyte pct 54.5 % [facility] Comment: Interpretive Data Percent cell count reference ranges are not reported, since discordance with absolute values may lead to misinterpretation of CBC data. Current Interpretive Data was last revised on 2017. Monocyte pct 13.3 % [facility] Comment: Interpretive Data Percent cell count reference ranges are not reported, since discordance with absolute values may lead to misinterpretation of CBC data. Current Interpretive Data was last revised on 2017. Eosinophil pct 8.8 % [facility] Comment: Interpretive Data Percent cell count reference ranges are not reported, since discordance with absolute values may lead to misinterpretation of CBC data. Current Interpretive Data was last revised on 2017. Basophil pct 0.4 % [facility] Comment: Interpretive Data Percent cell count reference ranges are not reported, since discordance with absolute values may lead to misinterpretation of CBC data. Current Interpretive Data was last revised on 2017. Blood 06/25/2024 8:41 AM PHARMACOLOGY PROFESSOR 06/25/2024 3:12 PM PHARMACOLOGY PROFESSOR us Amauri Bro MD LAB BLOOD ORDERABLES Trena patricio Result [facility] [id number] [address] Department [place] [address] * (ABNORMAL) CBC with auto differential (06/25/2024 8:41 AM PHARMACOLOGY PROFESSOR) WBC 4.7 3.8 - 9.9 K/cumm Hgb 13.6 11.9 - 15.5 g/dL [facility] Hct 43.6 35.6 - 45.5 % [facility] Plt 206 150 - 400 K/cumm [facility] MPV 11.4 9.1 - 12.3 fL [facility] RBC 5.22(H) 3.90 - 5.20 M/cumm [facility] MCV 83.5 81.3 - 96.4 fL [facility] MCH 26.1(L) 27.1 - 33.3 pg [facility] MCHC 31.2(L) 32.3 - 35.7 g/dL [facility] RDW CV 13.8 11.1 - 14.9 % [facility] RDW SD 42.2 35.7 - 48.1 fL [facility] NRBC abs 0.00 0.00 - 0.01 K/cumm [facility] Blood 06/25/2024 8:41 AM PHARMACOLOGY PROFESSOR 06/25/2024 3:12 PM PHARMACOLOGY PROFESSOR us Amauri Bro MD LAB BLOOD ORDERABLES Trena sheng Result [facility] [address] [address] Department [place] [address] * (ABNORMAL) Lipid panel (06/25/2024 8:41 AM PHARMACOLOGY PROFESSOR) Cholesterol 231(H) 30 - 199 mg/dL Comment: Interpretive Data Ages < or = 19 years Acceptable: <170 mg/dL Borderline high: 170-199 mg/dL High: >or= 200 mg/dL Ages > or = 20 years Desirable: <200 mg/dL Borderline high: 200-239 mg/dL High: >or= 240 mg/dL Literature References: 1. Expert Panel on Integrated Guidelines for Cardiovascular Health and Risk Reduction in Children and Adolescents. Pediatrics 2011;128:S213 2. NCEP Expert Panel. Circulation 2004;110:227 Current Interpretive Data was last revised on 2017. Triglycerides 161(H) <=149 mg/dL [facility] Comment: Interpretive Data Ages < or = 9 years Acceptable: <75 mg/dL Borderline high: 75-99 mg/dL High: >or= 100 mg/dL Ages 10 to 20 years Acceptable: <90 mg/dL Borderline high: 90-129 mg/dL High: >or= 130 mg/dL Ages > or = 20 years Desirable: <150 mg/dL Borderline high: 150-199 mg/dL High: 200-499 mg/dL Very high: >or= 499 mg/dL Literature References: 1. Expert Panel on Integrated Guidelines for Cardiovascular Health and Risk Reduction in Children and Adolescents. Pediatrics 2011;128:S213 2. NCEP Expert Panel. Circulation 2004;110:227 Current Interpretive Data was last revised on 2017. HDL 55 >=40 mg/dL [facility] Comment: Interpretive Data Ages < or = 19 years Acceptable: >45 mg/dL Borderline low: 40-45 mg/dL Low: <40 mg/dL Ages > or = 20 years Desirable: >or= 60 mg/dL Low: <40 mg/dL Literature References: 1. Expert Panel on Integrated Guidelines for Cardiovascular Health and Risk Reduction in Children and Adolescents. Pediatrics 2011;128:S213 2. NCEP Expert Panel. Circulation 2004;110:227 Current Interpretive Data was last revised on 2017. LDL, calculated 147(H) <=129 mg/dL [facility] Comment: Interpretive Data Ages < or = 19 years Acceptable: <110 mg/dL Borderline high: 110-129 mg/dL High: >or= 130 mg/dL Ages > or = 20 years Optimal: <100 mg/dL Near optimal: 100-129 mg/dL Borderline high: 130-159 mg/dL High: >160 mg/dL Calculated using the Dav LDL-C estimating equation. This equation was implemented on 2023. Prior to this date LDL-C was estimated using the Friedewald equation. Literature References: 1. Expert Panel on Integrated Guidelines for Cardiovascular Health and Risk Reduction in Children and Adolescents. Pediatrics 2011;128:S213 2. NCEP Expert Panel. Circulation 2004;110:227 3. Dav Schulz et al. YAMILEX Cardiol. 2020 September 06;5(5):540-548. doi: 10.1001/jamacardio.2020.0013 Current Interpretive Data was last revised on 2023. Non-HDL Cholesterol 176 mg/dL [facility] Comment: Interpretive Data Ages < or = 19 years Acceptable: <120 mg/dL Borderline high: 120-144 mg/dL High: >145 mg/dL Ages > or = 20 years When triglycerides are >200 mg/dL, Non-HDL cholesterol is a secondary target of therapy with treatment goals that are 30 mg/dL greater than the LDL cholesterol target. Literature References: 1. Expert Panel on Integrated Guidelines for Cardiovascular Health and Risk Reduction in Children and Adolescents. Pediatrics 2011;128:S213 2. NCEP Expert Panel. Circulation 2004;110:227 Current Interpretive Data was last revised on 2017. Chol/HDL ratio 4 [facility] Blood 06/25/2024 8:41 AM PHARMACOLOGY PROFESSOR 06/25/2024 3:12 PM PHARMACOLOGY PROFESSOR Amauri Bro MD LAB BLOOD ORDERABLES Trena sheng Result [facility] [id number] [address] Department [place] [address] * Comprehensive metabolic panel (06/25/2024 8:41 AM PHARMACOLOGY PROFESSOR) Sodium 142 135 - 145 mmol/L Potassium, pl 4.2 3.3 - 4.9 mmol/L [facility] Chloride 107 97 - 110 mmol/L [facility] CO2 24 22 - 32 mmol/L [facility] Anion gap 11 2 - 15 mmol/L [facility] BUN 13 6 - 25 mg/dL [facility] Creatinine 0.65 0.60 - 1.10 mg/dL [facility] Glucose 90 70 - 199 mg/dL [facility] Comment: Interpretive Data Fasting glucose >/= 126 mg/dl is diagnostic for diabetes. Fasting is defined as no caloric intake for at least 8 hours. Fasting glucose between 100 mg/dl to 125 mg/dl is diagnostic of prediabetes. In a patient with classic symptoms of hyperglycemia or hyperglycemic crisis, a random glucose >/= 200 mg/dl is diagnostic for diabetes. In the absence of unequivocal hyperglycemia, results should be confirmed by repeat testing. The classification and Diagnosis of Diabetes Diabetes Care 2021; 46: S19-S40. Current interpretive data was last revised 2022. Calcium 9.3 8.5 - 10.3 mg/dL [facility] Bilirubin, total 0.4 0.1 - 1.2 mg/dL [facility] Protein, pl 6.8 6.5 - 8.5 g/dL [facility] Albumin 4.1 3.5 - 5.0 g/dL [facility] Alk phos 80 40 - 130 Units/L [facility] ALT 12 7 - 45 Units/L [facility] AST 23 10 - 45 Units/L [facility] Blood 06/25/2024 8:41 AM PHARMACOLOGY PROFESSOR 06/25/2024 3:12 PM PHARMACOLOGY PROFESSOR Amauri Bro MD LAB BLOOD ORDERABLES Trena l Result [facility] [id number] [place] [address] Department [place] [address] * Hepatitis C antibody Blood (10/13/2023 10:31 AM CDT) Hep C Ab Nonreactive Nonreactive Comment: Interpretive Data Nonreactive: Antibodies to HCV not detected. Does NOT exclude the possibility of recent exposure to HCV. Equivocal: Equivocal for HCV antibodies. Supplemental molecular testing will be automatically performed to determine infection status in accordance with current CDC screening recommendations. Reactive: Positive for HCV antibodies. This may represent current or past HCV infection. Supplemental molecular testing will be automatically performed to determine current infection status in accordance with current CDC screening recommendations. Interpretive data was last revised on 2019. Testing performed by: [facility], [address] [place] [address]., [id number] Blood 10/13/2023 10:3 1 AM CDT 10/13/2023 5:44 PM CDT us Ana Dumont NP LAB MICROBIOLOGY - GENERAL ORDER UNIQUE Final Result Performing Organization Address City/[facility] Co de Phone Number DONITA [facility] 1 [facility] [place] [address] * CT Lung Cancer Screening (04/09/2023 7:50 AM PHARMACOLOGY PROFESSOR) Anatomical Region Laterality Modality Chest N/A Computed Tomogra phy 04/12/2023 8:26 AM PHARMACOLOGY PROFESSOR Narrative 04/12/2023 8:42 AM PHARMACOLOGY PROFESSOR EXAM DESCRIPTION: CT LUNG CANCER SCREENING REASON FOR STUDY: Screening CT of the chest in a current smoker with a 40 pack year smoking history. Additional history: None. TECHNIQUE: Low dose CT scan of the chest was performed without intravenous contrast using helical scanning technique. The exam extends from the lung apices through the lung bases. Automatic exposure control was used as a dose optimization technique. NOTE: This study was performed for the specific purposes of lung cancer screening and is not an alternative to diagnostic chest CT. RADIATION DOSE: CT dose index volume (CTDIvol) = 0.88 mGy COMPARISON: CT PE dated 11/15/2021 FINDINGS: SMOKING RELATED LUNG DISEASE: Mild-moderate emphysema LUNG NODULES: Stable 2 mm right upper lobe nodule (54). New 3 mm central right upper lobe nodule (36). A 4 mm subpleural right lower lobe nodule appears more dense compared to the prior examination (229). Grossly stable nodularity along the left major fissure. Grossly stable 8 mm lateral left lower lobe nodule (207). Multiple other sub 4 mm nodules are noted. OTHER: Chronic scarring within the left lung base. No pleural effusion or pneumothorax. No mediastinal or hilar lymphadenopathy. The heart is normal in size without significant coronary calcification. Chronic small pericardial effusion. Aorta is normal in caliber. No axillary lymphadenopathy. No chest wall mass is seen. Images of the upper abdomen demonstrate a small hiatal hernia. Thickening of the distal esophagus, likely due to under distension. Bone windows demonstrate no suspicious lytic or sclerotic lesion. No acute fracture seen. IMPRESSION: 1. New 3 mm right upper lobe pulmonary nodule. Other larger nodules are grossly stable compared to 11/15/2021. Lung-RADS category 2: Benign appearance or behavior. Recommendation: Low dose Screening CT of chest in 12 months. THIS IS AN ELECTRONICALLY VERIFIED FINAL REPORT 04/12/2023 8:42 AM - Electronically signed by Dilshad Kilgore M.D. AG: WU Report ID: [id number] Reading Location: [place] [address] Procedure Note Dilshad Kilgore MD - 04/12/2023 EXAM DESCRIPTION: CT LUNG CANCER SCREENING REASON FOR STUDY: Screening CT of the chest in a current smoker with a40 pack year smoking history. Additional history: None. TECHNIQUE: Low dose CT scan of the chest was performed without intravenous contrast using helical scanning technique. The exam extends from the lung apices through the lung bases. Automatic exposure control was used as adose optimization technique. NOTE: This study was performed for the specific purposes of lung cancer screening and is not an alternative to diagnostic chest CT. RADIATION DOSE: CT dose index volume (CTDIvol) = 0.88 mGy COMPARISON: CT PE dated 11/15/2021 FINDINGS: SMOKING RELATED LUNG DISEASE: Mild-moderate emphysema LUNG NODULES: Stable 2 mm right upper lobe nodule (54). New 3 mmcentral right upper lobe nodule (36). A 4 mm subpleural right lower lobe nodule appears more dense compared to the prior examination (229). Grosslystable nodularity along the left major fissure. Grossly stable 8 mm lateral left lower lobe nodule (207). Multiple other sub 4 mm nodules are noted. OTHER: Chronic scarring within the left lung base. No pleural effusionor pneumothorax. No mediastinal or hilar lymphadenopathy. The heart isnormal in size without significant coronary calcification. Chronic smallpericardial effusion. Aorta is normal in caliber. No axillary lymphadenopathy. Nochest wall mass is seen. Images of the upper abdomen demonstrate a small hiatal hernia. Thickening of the distal esophagus, likely due to underdistension. Bone windows demonstrate no suspicious lytic or sclerotic lesion. Noacute fracture seen. IMPRESSION: 1. New 3 mm right upper lobe pulmonary nodule. Other larger nodules are grossly stable compared to 11/15/2021. Lung-RADS category 2: Benign appearance or behavior. Recommendation: Low dose Screening CT of chest in 12 months. THIS IS AN ELECTRONICALLY VERIFIED FINAL REPORT 04/12/2023 8:42 AM - Electronically signed by Dilshad Kilgore M.D. AG: WU Report ID: [id number] Reading Location: [place] [address] Amauri Bro MD IMG CT PROCEDURES Final R esult * COLONOSCOPY (11/20/2019 10:14 AM CDT) Anatomical Region Laterality Modality Other Narrative Procedure Note Scott Fisher MD - 11/20/2019 10:14 AM CDT [facility] Patient Name: Padmini Little Procedure Date: 11/20/2019 10:14 AM Date of : 1960 Admit Type: Outpatient Age: 58 Gender: Female Attending MD: Scott Fisher M.D. Room: [facility] ENDOSCOPY ROOM 1 Note Status: Finalized Patient Profile: This is a 58 year old female. Her mother had colon cancer. Screening. Procedure: Colonoscopy Indications: Screening in patient at increased risk: Familyhistory of 1st-degree relative with colorectal cancer, Last colonoscopy: November 2006 Referring MD: Reid Christine, ANP Providers: Scott Fisher M.D. Impression: - One 4 mm polyp in the ascending colon, removedwith a jumbo cold forceps. Resected and retrieved. - One 15 mm polyp at the splenic flexure, removedwith a hot snare. Resected and retrieved. Clip (MR conditional) was placed. - Internal hemorrhoids. Recommendation: - Await pathology results. - Repeat colonoscopy in 3 years for screeningpurposes. - Continue present medications. Medicines: Monitored Anesthesia Care Complications: No immediate complications. Estimated Blood Loss: Estimated blood loss: none. Procedure: Pre-Anesthesia Assessment: - Prior to the procedure, a History and Physical was performed, and patient medications and allergieswere reviewed. The patient's tolerance of previous anesthesia was also reviewed. The risks and benefitsof the procedure and the sedation options and riskswere discussed with the patient. All questions were answered, and informed consent was obtained. Prior Anticoagulants: The patient has taken no previous anticoagulant or antiplatelet agents. ASA Grade Assessment: II - A patient with mild systemicdisease. After reviewing the risks and benefits, the patientwas deemed in satisfactory condition to undergo the procedure. The benefits, risks and alternatives of theprocedure and sedation were discussed and informed consent was obtained. All questions were answered. Please referto the signed informed consent document in the medical record. The scope was passed under direct vision.The Pediatric Colonoscope PCF-H190L [id number] was introduced through the anus and advanced to the the cecum, identified by appendiceal orifice andileocecal valve. The bowel preparation used was Miralax. The bowel preparation used was bisacodyl tablets. Bowel prep was administered using a split dose. Thequality of the bowel preparation was good. Findings: The perianal and digital rectal examinations were normal. The cecum appeared normal. A 4 mm polyp was found in the ascending colon. The polyp was sessile. The polyp was removed with a jumbo cold forceps. Resection andretrieval were complete. A 15 mm polyp was found in the splenic flexure. The polyp was semi-sessile. The polyp was removed with a hot snare. Resection and retrieval were complete. To prevent bleeding after the polypectomy,one hemostatic clip was successfully placed (MR conditional). There wasno bleeding at the end of the procedure. The sigmoid colon was unremarkable. The rectum appeared normal. Internal hemorrhoids were found during retroflexion. The hemorrhoids were small. Electronically signed by Scott Fisher M.D. Scott Fisher M.D. 11/20/2019 12:06:33 PM Number of Addenda: 0 Note Initiated On: 11/20/2019 10:14 AM Procedure Code(s): --- Professional --- 19905, Colonoscopy, flexible; with removal of tumor(s), polyp(s), or other lesion(s) by snare technique 12516, 59, Colonoscopy, flexible; with biopsy, single or multiple Diagnosis Code(s): --- Professional --- Z80.0, Family history of malignant neoplasm of digestive organs K64.8, Other hemorrhoids D12.2, Benign neoplasm of ascending colon D12.3, Benign neoplasm of transverse colon (hepatic flexure orsplenic flexure) CPT copyright 2017 [employer]. All rights reserved. The codes documented in this report are preliminary and upon medical administrator reviewmay be revised to meet current compliance requirements. Recognized by the [employer] for promoting quality in endoscopy Scott Fisher MD ENDOSCOPY PROCEDURES Final Result * DIAGNOSTIC MAMMOGRAM BILATERAL W LIZETTE (05/16/2015 7:40 AM PHARMACOLOGY PROFESSOR) Anatomical Region Laterality Modality Breast Bilateral Mammography 05/16/2015 7:40 AM PHARMACOLOGY PROFESSOR Narrative 05/16/2015 3:25 PM PHARMACOLOGY PROFESSOR PROCEDURE PERFORMED BY: dr JAZIEL BAUER BI Acc#: [id number] DATE OF EXAM: May 16 2015 CLINICAL HISTORY: Routine screening, no current complaints. RESULT: Prior exams are unavailable for comparison. Four view screening mammogram demonstrates breasts composed of scattered fibroglandular densities. Several scattered benign, round and punctate calcifications are present. There are no suspicious mass lesions or architectural distortions. Tomographic images demonstrate no additional findings. Digital technology was employed plus computer-aided detection software (R2) was utilized in interpretation of these images. This facility utilizes a reminder system to notify patients of yearly mammograms. IMPRESSION: BI-RADS CATEGORY 2 - BENIGN FINDINGS. RECOMMEND ROUTINE FOLLOW-UP. Interpreting Physician: DR SHAUNA VALDIVIA M.D. Read on: May 16 2015 7:40A Transcribed by: IOANA On: May 16 2015 11:32A Approved Electronically by: SHEA Campuzano, DR VILLATORO on: May 16 2015 3:25P Attending: ALEXSANDER CHIRSTINE Requesting: REID CHRISTINE Requesting Attending Fax: -- Attending ID: [id number] Requesting ID: [id number] Report To 1 ID: [id number] Report To 1 Name: ALEXSANDER CHRISTINE Report To 1 FAX: -- NextGen Order #: Procedure Note ProviderMook MD - 08/29/2016 PROCEDURE PERFORMED BY: dr JAZIEL BAUER BI Acc#: [id number] DATE OF EXAM: May 16 2015 CLINICAL HISTORY: Routine screening, no current complaints. RESULT: Prior exams are unavailable for comparison. Four view screeningmammogram demonstrates breasts composed of scattered fibroglandulardensities. Several scattered benign, round and punctate calcifications arepresent. There are no suspicious mass lesions or architecturaldistortions. Tomographic images demonstrate no additional findings.Digital technology was employed plus computer-aided detection software(Other Machine) was utilized in interpretation of these images. This facilityutilizes a reminder system to notify patients of yearly mammograms. IMPRESSION: BI-RADS CATEGORY 2 - BENIGN FINDINGS. RECOMMEND ROUTINE FOLLOW-UP. Interpreting Physician: DR SHAUNA VALDIVIA M.D. Read on: May 16 20157:40A Transcribed by: IOANA On: May 16 2015 11:32A Approved Electronically by: SHEA Campuzano, DR VILLATORO on: May 16 20153:25P Attending: ALEXSANDER CHRISTINE Requesting: REID CHRISTINE Requesting Attending Fax: -- Attending ID: [id number] Requesting ID: [id number] Report To 1 ID: [id number] Report To 1 Name: ALEXSANDER CHRISTINE Report To 1 FAX: -- NextGen Order #: Historical Provider MD CRYSTAL MAMMO PROCEDURES Trena l Result from Last 3 Months or Most Recently Relevant to Health Maintenance Insurance MEDICARE MEDICARE [facility] CHOICE PLUS MEDICARE Advance Directives For more information, please contact: [phone] * Full Code (Latest Code Status on File) Date Activated Date Inactivated Comments 11/23/2020 12:36 PM 11/24/2020 4:19 PM * Full Code Date Activated Date Inactivated Comments 11/20/2019 11:07 AM 11/20/2019 5:04 PM * Full Code Date Activated Date Inactivated Comments 11/20/2019 11:07 AM 11/20/2019 11:07 AM * Full Code Date Activated Date Inactivated Comments 11/13/2019 9:56 AM 11/13/2019 4:46 PM * Full Code Date Activated Date Inactivated Comments 11/13/2019 9:56 AM 11/13/2019 9:56 AM Care Teams Public Health Representative Relationship Specialty Start Date End Date Amauri Bro MD [address] [place] [address] PCP - General Family Medicine 02/16/23 Black Gann MD Consulting Physician General Surgery 11/24/20 Hayden March MD Referring Physician Cardiology 11/24/20
--- OUTSIDE RECORDS SUMMARY | 2024-06-30 08:35 | XMS_ITS | Encounter Summary ---
Author Organization [facility] Address [address] [place] [address] Care Team Providers Care Falafel Cart Cook Name Role Phone Christian Christine NP Primary Care Provider [phone] Black Gann MD Unavailable Hayden March MD Unavailable [phone] Primitivo Gil MD Primary Care Provider + Miscellaneous, Not In File Primary Care Provider Unavailable Eladio Hess MD Primary Care Provider [phone] Amauri Bro MD Primary Care Provider [phone] Antoinette Richey MA Unavailable Unavailable Encounter Details Date Type Department Care Team (Late st Contact Info) Description 11/05/2006 Orders Only [facility] [place] [facility] [address] [place] [address] Scanning, Provider Social History Tobacco Use Types Packs/Day Years Used Date Smoking Tobacco: Never Assessed Comments Unknown Sex and Gender Information Value Date Recorded Sex Assigned at Not on file Legal 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 Gender Identity Not on file Sexual Orientation Not on file documented as of this encounter Plan of Treatment Not on file documented as of this encounter Procedures Procedure Name Priority Date/Time Associated Diagnosis Comments SCAN - RADIOLOGY/IMAGING 11/05/2006 documented in this encounter Results * SCAN - RADIOLOGY/IMAGING (11/05/2006) Anatomical Region Laterality Modality Other us Provider [...] documented as of this encounter Care Teams Falafel Cart Cook Relationship Specialty Start Date End Date Christian Christine NP [address] [place] [address] PCP - General 08/22/17 03/09/21 Primitivo Gil MD [address] [place] [address] [address] [place] [address] PCP - General 03/10/21 11/14/21 Miscellaneous, Not In File PCP - General 11/15/21 Eladio Hess MD PCP - General 11/16/21 02/15/23 Amauri Bro MD [address] [place] [address] PCP - General Family Medicine 02/16/23 Black Gann MD [address] [place] [address] Consulting Physician General Surgery 11/24/20 Hayden March MD [address] [place] [address] Referring Physician Cardiology 11/24/20 Antoinette Richey, VICTORINA [address] [place] [address] [address] [place] [address] ACO Care Simplex Operator 02/07/24 02/07/24 documented as of this encounter
--- OUTSIDE RECORDS SUMMARY | 2024-06-30 08:35 | XMS_ITS | Encounter Summary ---
Author Organization [facility] Address [address] [place] [address] Care Team Providers Care Hand Weaver Name Role Phone Christian Christine NP Primary Care Provider [phone] Black Gann MD Unavailable Hayden March MD Unavailable [phone] Primitivo Gil MD Primary Care Provider + Miscellaneous, Not In File Primary Care Provider Unavailable Eladio Hess MD Primary Care Provider [phone] Amauri Bro MD Primary Care Provider [phone] Antoinette Richey MA Unavailable Unavailable Encounter Details Date Type Department Care Team (Late st Contact Info) Description 11/22/2006 Orders Only [facility] Health Information Management [address] [place] [address] Scanning, Provider Social History Tobacco Use Types Packs/Day Years Used Date Smoking Tobacco: Never Assessed Comments Unknown Sex and Gender Information Value Date Recorded Sex Assigned at Not on file Legal Sex Female 8:18 AM FOLLOW UP REP Gender Identity Not on file Sexual Orientation Not on file documented as of this encounter Plan of Treatment Not on file documented as of this encounter Procedures Procedure Name Priority Date/Time Associated Diagnosis Comments GI - RESULT 11/22/2006 SCAN - PATHOLOGY 11/22/2006 documented in this encounter Results * SCAN - PATHOLOGY (11/22/2006) us Provider Scanning Edited Result - Final * GI - RESULT (11/22/2006) Anatomical Region Laterality Modality Other us Provider [...] documented as of this encounter Care Teams Hand Weaver Relationship Specialty Start Date End Date Christian Christine NP [address] [place] [address] [address] [place] [address] PCP - General 08/22/17 03/09/21 Primitivo Gil MD [address] [place] [address] [address] [place] [address] PCP - General 03/10/21 11/14/21 Miscellaneous, Not In File PCP - General 11/15/21 Eladio Hess MD PCP - General 11/16/21 02/15/23 Amauri Bro MD [address] [place] [address] PCP - General Family Medicine 02/16/23 Black Gann MD [address] [place] [address] [address] [place] [address] Consulting Physician General Surgery 11/24/20 Hayden March MD [address] [place] [address] Referring Physician Cardiology 11/24/20 Antoinette Richey, VICTORINA [address] [place] [address] [address] [place] [address] ACO Care Milk Handler 02/07/24 02/07/24 documented as of this encounter
--- OUTSIDE RECORDS SUMMARY | 2024-06-30 08:35 | XMS_ITS | Referral Summary ---
Author Organization [facility] Address [address] [place] [address] Care Team Providers Care Stereoptic Projection Topographer Name Role Phone Black Gann MD Unavailable Hayden March MD Unavailable [phone] Amauri Bro MD Primary Care Provider [phone] Encounters Date Type Department Care Team Description 06/25/2024 8:41 AM LINE PRODUCER - 06/25/2024 11:59 PM LINE PRODUCER Hospital Encounter [address] [address] Mixed hyperlipidemia Discharge Disposition: Discharge to home or self care 06/25/2024 9:30 AM LINE PRODUCER Lab [facility] Outpatient Lab at [address] [address] Mixed hyperlipidemia (Primary Dx) 06/25/2024 8:30 AM LINE PRODUCER Office Visit [facility] Primary Care at [address] [address] Amauri Bro MD Medicare annual wellness [...] status unspecified (HCC) from Last 3 Months Allergies No known active allergies Medications FLUoxetine [...] -152 mg-32.4 mg tablet Take by mouth 06/09 11/07 025 Discontin ued(Patie nt Reported) tocilizumab (ACTEMRA) [...] 02/16/2023 Assessment & Plan (06/25/2024 11:52 AM LINE PRODUCER): Well controlled, good relief with medication no significant depression, patient does reports some anxiety Continue fluoxetine 20 mg daily, start BuSpar 5 mg t.i.d. Assessment & Plan (04/18/2023 3:42 PM LINE PRODUCER): Stable, currently well controlled Continue Fluoxetine 20 mg daily Follow up 3 months; sooner as needed Assessment & Plan (02/24/2023 4:56 PM CDT): Restart previous medications Prozac 20 mg daily Family history of colon cancer in mother 023 History of colon polyps 11/01/2022 Rheumatoid arthritis involving multiple sites (C MS/HCC) 11/24/2020 Assessment & Plan (06/25/2024 11:52 AM LINE PRODUCER): Not well controlled; continues to have significant swelling deformity right hand, now developing swelling and left hands; patient did not tolerate previous medications Recommend engagement with rheumatology for other medical options Continue prednisone p.r.n. for severe flares Assessment & Plan (04/18/2023 3:41 PM LINE PRODUCER): Follows with Rheumatology [place] every 14 days Obtain CBC prior to next appt Assessment & Plan (02/16/2023 3:35 PM CDT): Follows with rheumatology; on -Dr. Velasquez -[place], every 14 days -generally well controlled for patient Bochdalek hernia 11/24/2020 Pulmonary nodule 11/24/2020 Assessment & Plan (04/18/2023 3:36 PM LINE PRODUCER): Reviewed CT scan results with patient Will [...] nodules and she has an appt with science teacher next week. She also had cardiac workup [...] 10/23/2019 Assessment & Plan (06/25/2024 11:50 AM LINE PRODUCER): Patient continues to smoke about 1 pack per day, no current thoughts on quitting, has high levels of anxiety impacts her Will continue with annual lung cancer screening; encouraged patient to continue to evaluate causes of her continued tobacco use and ways to limit use Assessment & Plan (04/18/2023 3:41 PM LINE PRODUCER): Still smokes 1 ppd; not interested in [...] (10/23/2019): Added automatically from request for surgery [id number] Assessment & Plan (02/24/2023 4:55 PM CDT): Has been decreasing, calming down; rare use of famotidine To monitor, avoid foods that trigger acid reflux Screen for colon cancer 10/23/2019 Overview (10/23/2019): Added automatically from request for surgery [id number] Sprain of anterior talofibular ligament of right ankle 09/17/2019 Chronic obstructive lung disease 10/10/2018 Assessment & Plan (06/25/2024 11:51 AM LINE PRODUCER): Difficulty with breathing, generally well controlled; encourage [...] 09/11/2018 Assessment & Plan (06/25/2024 11:51 AM LINE PRODUCER): Not well controlled, LDL and total cholesterol elevated; continue pravastatin 10 mg daily; encourage low-fat high-fiber Assessment & Plan (04/18/2023 3:40 PM LINE PRODUCER): Not well controlled; last lipid panel not at goal Start Pravastatin 10 mg daily Follow up in 3 months; obtain labs prior to appt Assessment & Plan (02/24/2023 4:56 PM CDT): Unclear controlled; patient has not been taking medications; will check lipid panel, evaluate if patient would benefit from statin therapy Lumbar spinal stenosis 07/03/2015 Assessment & Plan (06/25/2024 11:51 AM LINE PRODUCER): Well controlled, no major symptoms at this [...] on famotidine 40mg daily and schedule EGD. Immunizations Immunization Administration Dates Next Due Influenza, Quadrivalent, Split, Intramuscular ,02/10/2017 Influenza, Quadrivalent, Spl it, Preservative Free, Intramuscular 02/16/2023,01/29/2020 Influenza, Trivalent, Preservative Free, Intramu scular 02/19/2016 Influenza, Unspecified 02/06/2022 Pneumococcal Conjugate Pcv20 06/25/2024 Social History Tobacco Use Types Packs/Day Years [...] on file Legal Sex Female 8:18 AM LINE PRODUCER Gender Identity Not on file Sexual Orientation Not on file Last Filed Vital Signs Vital Sign Reading Time Taken Comments Blood Pressure 118/68 06/25/2024 8:13 AM LINE PRODUCER Pulse 44 06/25/2024 8:13 AM LINE PRODUCER Temperature 37 C (98.6 F) 06/25/2024 8:13 AM LINE PRODUCER Respiratory Rate 17 02/06/2024 7:05 AM CDT Oxygen Saturation 92% 06/25/2024 8:13 AM LINE PRODUCER Inhaled Oxygen Concentration - - Weight 59 kg (130 lb) 06/25/2024 8:13 AM LINE PRODUCER Height 170.2 cm (5' 7 ) 06/25/2024 8:13 AM LINE PRODUCER Body Mass Index 20.36 06/25/2024 8:13 AM LINE PRODUCER Plan of Treatment Not on file Medical Devices Implanted Type Area Human Resources Benefits Assistant Device Identifier Shelf Expiration Date Model / Serial / Lot Jaw Left: Mandible Description:2008 Broken jaw Procedures Procedure Name Priority Date/Time Associated Diagnosis Comments EGFR Routine 06/25/2024 8:41 AM LINE PRODUCER Mixed hyperlipidemia DIFFERENTIAL AUTO Routine 06/25/2024 8:4 1 AM LINE PRODUCER Mixed hyperlipidemia COMPREHENSIVE METABOLIC PANEL Routine 06/25/2024 8:41 AM LINE PRODUCER Mixed hyperlipidemia CBC WITH AUTO DIFFERENTIAL Routine 06/25/2024 8:41 AM LINE PRODUCER Mixed hyperlipidemia LIPID PANEL Routine 06/25/2024 8:41 AM LINE PRODUCER Mixed hyperlipidemia HEPATITIS C ANTIBODY Routine 10/13/2023 10:31 AM CDT Need for hepatitis C screening test CT LUNG CANCER SCREENING Schedule Routine, Read Routine (OP Routine) 04/09/2023 7:50 AM LINE PRODUCER Tobacco use Nicotine dependence, cigarettes, uncomplicated COLONOSCOPY 11/20/2019 10:14 AM CDT DIAGNOSTIC MAMMOGRAM BILATERAL W LIZETTE Routine 05/16/2015 7:40 AM LINE PRODUCER from Last 3 Months or Most Recently Relevant to Health Maintenance Results * eGFR (06/25/2024 8:41 AM LINE PRODUCER) Pathologist [facility] eGFR >90 >=60 mL/min/1. 73 m2 Comment: [...] of Race in Diagnosing Kidney Disease, JASN 2020). The CKD-EPI equation should not be used for patients with unstable renal function and has not been validated in children and those over 70. Current interpretive data was last reviewed 2021. Blood 06/25/2024 8:41 AM LINE PRODUCER 06/25/2024 3:30 PM LINE PRODUCER us Amauri Bro MD LAB BLOOD ORDERABLES Trena patricio Result [facility] [address] Department [place] [address] * (ABNORMAL) Differential, auto (06/25/2024 8:41 AM LINE PRODUCER) Pathologist [facility] Neutrophil abs 1.1(L) 1.5 - 6.5 K/cumm Imm gran abs 0.0 0.0 - 0.1 K/cumm [facility] Lymphocyte abs 2.5 0.8 - 3.3 K/cumm [facility] Monocyte abs 0.6 0.2 - 0.8 K/cumm [facility] Eosinophil abs 0.4 0.0 - 0.5 K/cumm [facility] Basophil abs 0.0 0.0 - 0.1 K/cumm [facility] Neutrophil pct 23.0 % [facility] Comment: Interpretive Data Percent cell count reference ranges are not reported, since discordance with absolute values may lead to misinterpretation of CBC data. Current Interpretive Data was last revised on 2017. Imm gran pct 0.0 % [facility] Comment: Interpretive Data Percent cell count reference ranges are not reported, since discordance with absolute values may lead to misinterpretation of CBC data. Current Interpretive Data was last revised on 2017. Lymphocyte pct 54.5 % [facility] Comment: Interpretive Data Percent cell count reference ranges are not reported, since discordance with absolute values may lead to misinterpretation of CBC data. Current Interpretive Data was last revised on 2017. Monocyte pct 13.3 % [facility] Comment: Interpretive Data Percent cell count reference ranges are not reported, since discordance with absolute values may lead to misinterpretation of CBC data. Current Interpretive Data was last revised on 2017. Eosinophil pct 8.8 % [facility] Comment: Interpretive Data Percent cell count reference ranges are not reported, since discordance with absolute values may lead to misinterpretation of CBC data. Current Interpretive Data was last revised on 2017. Basophil pct 0.4 % [facility] Comment: Interpretive Data Percent cell count reference ranges are not reported, since discordance with absolute values may lead to misinterpretation of CBC data. Current Interpretive Data was last revised on 2017. Blood 06/25/2024 8:41 AM LINE PRODUCER 06/25/2024 3:12 PM LINE PRODUCER us Amauri Bro MD LAB BLOOD ORDERABLES Trena l Result [facility] [address] Department [place] [address] * (ABNORMAL) CBC with auto differential (06/25/2024 8:41 AM LINE PRODUCER) WBC 4.7 3.8 - 9.9 K/cumm Hgb 13.6 11.9 - 15.5 g/dL [facility] Hct 43.6 35.6 - 45.5 % [facility] Plt 206 150 - 400 K/cumm [facility] MPV 11.4 9.1 - 12.3 fL [facility] RBC 5.22(H) 3.90 - 5.20 M/cumm [facility] MCV 83.5 81.3 - 96.4 fL [facility] MCH 26.1(L) 27.1 - 33.3 pg [facility] MCHC 31.2(L) 32.3 - 35.7 g/dL [facility] CH RDW CV 13.8 11.1 - 14.9 % [facility] RDW SD 42.2 35.7 - 48.1 fL [facility] NRBC abs 0.00 0.00 - 0.01 K/cumm [facility] Blood 06/25/2024 8:41 AM LINE PRODUCER 06/25/2024 3:12 PM LINE PRODUCER Amauri Bro MD LAB BLOOD ORDERABLES Trena patricio [facility] [address] Department [place] [address] * (ABNORMAL) Lipid panel (06/25/2024 8:41 AM LINE PRODUCER) Cholesterol 231(H) 30 - 199 mg/dL Comment: [...] revised on 2017. Triglycerides 161(H) <=149 mg/dL [facility] Comment: Interpretive Data Ages < or = [...] revised on 2017. HDL 55 >=40 mg/dL [facility] Comment: Interpretive Data Ages [...] last revised on 2017. Chol/HDL ratio 4 [facility] CH Blood 06/25/2024 8:41 AM LINE PRODUCER 06/25/2024 3:12 PM LINE PRODUCER Amauri Bro MD LAB BLOOD ORDERABLES Trena sheng Result [facility] [address] Department [place] [address] * Comprehensive metabolic panel (06/25/2024 8:41 AM LINE PRODUCER) Sodium 142 135 - 145 mmol/L Potassium, [...] classification and Diagnosis of Diabetes Diabetes Care 202; 46: S19-S40. Current interpretive data was last [...] AST 23 10 - 45 Units/L [facility] Blood 06/25/2024 8:41 AM LINE PRODUCER 06/25/2024 3:12 PM LINE PRODUCER Amauri Bro MD LAB BLOOD ORDERABLES Trena l Result Performing Organization Address [facility] Co de Phone Number DONITA [address] [place] [address] * Hepatitis C antibody Blood (10/13/2023 10:31 [...] last revised on 2019. Testing performed by: [facility], [address] [place] [address]., [id number] Blood 10/13/2023 10:3 1 AM CDT 10/13/2023 5:44 PM CDT Ana Dumont NP LAB MICROBIOLOGY - GENERAL ORDER UNIQUE Final Result Performing Organization Address [facility] Co de Phone Number DONITA [facility] [address] [facility] Department [place] [address] * CT Lung Cancer Screening (04/09/2023 7:50 AM LINE PRODUCER) Anatomical Region Laterality Modality Chest N/A Computed Tomogra phy 04/12/2023 8:26 AM LINE PRODUCER Narrative 04/12/2023 8:42 AM LINE PRODUCER EXAM DESCRIPTION: CT LUNG CANCER SCREENING REASON [...] Dilshad Kilgore M.D. AG: WU Report ID: [id number] Reading Location: [id number] Procedure Note iDlshad Kilgore MD - 04/12/2023 EXAM DESCRIPTION: CT [...] Dilshad Kilgore M.D. AG: WU Report ID: [id number] Reading Location: [id number] us Amauri Bro MD [facility] CT PROCEDURES Final R esult * COLONOSCOPY (11/20/2019 10:14 AM CDT) Anatomical Region Laterality Modality Other Narrative Procedure Note Scott Fisher MD - 11/20/2019 10:14 AM CDT [facility] Patient Name: Padmini Little Procedure Date: 11/20/2019 10:14 AM Date of : 1960 Admit Type: Outpatient Age: 58 Gender: Female Attending MD: Scott Fisher M.D. Room: [facility] ENDOSCOPY ROOM 1 Note Status: Finalized Patient [...] passed under direct vision.The Pediatric Colonoscope PCF-H190L [id number] was introduced through the anus and advanced [...] 10:14 AM Procedure Code(s): --- Professional --- 27390, Colonoscopy, flexible; with removal of tumor(s), polyp(s), or other lesion(s) by snare technique 97929, 59, Colonoscopy, flexible; with biopsy, single or multiple Diagnosis Code(s): --- Professional --- Z80.0, Family history of malignant neoplasm of digestive organs K64.8, Other hemorrhoids D12.2, Benign neoplasm of ascending colon D12.3, Benign neoplasm of transverse colon (hepatic flexure orsplenic flexure) CPT copyright 2017 [employer]. All rights reserved. The codes documented in this report are preliminary and upon development scientist reviewmay be revised to meet current compliance requirements. Recognized by the [place] [employer] for promoting quality in endoscopy us Scott Fisher MD ENDOSCOPY PROCEDURES Final Result * DIAGNOSTIC MAMMOGRAM BILATERAL W LIZETTE (05/16/2015 7:40 AM LINE PRODUCER) Anatomical Region Laterality Modality Breast Bilateral Mammography 05/16/2015 7:40 AM LINE PRODUCER Narrative 05/16/2015 3:25 PM LINE PRODUCER PROCEDURE PERFORMED BY: SCREENING MAMM W LIZETTE BI Acc#: [id number] DATE OF EXAM: May 16 2015 CLINICAL [...] on: May 16 2015 3:25P Attending: ALEXSANDER CHRISTINE Requesting: REID CHRISTINE Requesting Attending Fax: -- Attending ID: [id number] Requesting ID: [id number] Report To 1 ID: [id number] Report To 1 Name: ALEXSANDER CHRISTINE Report To 1 FAX: -- NextGen Order #: Procedure Note Provider, MD Mook - 08/29/2016 PROCEDURE PERFORMED BY: dr JAZIEL BAUER BI Acc#: [id number] DATE OF EXAM: May 16 2015 CLINICAL HISTORY: Routine screening, no current complaints. RESULT: Prior exams are unavailable for comparison. Four view screeningmammogram demonstrates breasts composed of scattered fibroglandulardensities. Several scattered benign, round and punctate calcifications arepresent. There are no suspicious mass lesions or architecturaldistortions. Tomographic images demonstrate no additional findings.Digital technology was employed plus computer-aided detection software([employer]) was utilized in interpretation of these images. [...] CHRISTINE Requesting Attending Fax: -- Attending ID: [id number] Requesting ID: [id number] Report To 1 ID: [id number] Report To 1 Name: ALEXSANDER CHRISTINE Report To 1 FAX: -- NextGen Order #: Historical Provider MD CRYSTAL MAMMPlacido PROCEDURES Trena l Result from Last 3 Months or Most Recently Relevant to Health Maintenance Insurance MEDICARE MEDICARE [facility] CHOICE PLUS MEDICARE Advance Directives For more information, please contact: [phone] * Full Code (Latest Code Status on [...] 9:56 AM 11/13/2019 9:56 AM Care Teams Stereoptic Projection Topographer Relationship Specialty Start Date End Date Amauri Bro MD [address] [place] [address] PCP - General Family Medicine 02/16/23 Black Gann MD Consulting Physician General Surgery 11/24/20 Hayden March MD Referring Physician Cardiology 11/24/20
[2024-06-30 08:38] VITALS: BP 99/58; PULSE 78; RESP 16; TEMP 36.4; O2SAT 100
[2024-06-30 09:01] LABS: EDCOVIDSCREEN Negative (Negative); EDINFLUASCREEN Positive (Negative); EDINFLUBSCREEN Negative (Negative)
--- NOTE | 2024-06-30 09:20 | ED.GENADULT ---
HPI - General Adult General Chief complaint: Upper Respiratory Infection Stated complaint: fever, cough, negro, sore throat Source: patient Mode of arrival: ambulatory Limitations: no limitations History of Present Illness HPI narrative: Patient presents for evaluation of sick symptoms. Symptom onset yesterday. Symptoms include fever, sore throat, cough, nasal congestion and diarrhea. No nausea, vomiting or SOB. No recent sick contacts to her knowledge. She smokes 1 ppd. She is not taking any medication to assist with her symptoms. Related Data Home Medications ?Medication ?Instructions ?Recorded ?Confirmed ?Last Taken ?Type tocilizumab 162 mg/0.9 mL 162 mg subcut DIRECTED 12/19/22 12/19/22 Unknown History subcutaneous pen injector (Actemra ACTPen) buspirone 5 mg tablet mg 06/30/24 Unknown History prednisone 10 mg tablet mg 06/30/24 Unknown History Allergies Allergy/AdvReac Type Severity Reaction Status Date / Time No Known Allergies Allergy Verified 12/19/22 08:16 Review of Systems Review of Systems: CONSTITUTIONAL: Reports fever. Denies chills. EYES: Denies visual changes, redness, or discharge. ENT: Reports sore throat and nasal congestion CARDIOVASCULAR: Denies chest pain, palpitations, or edema. RESPIRATORY: Reports cough. Denies SOB GASTROINTESTINAL: Reports diarrhea. Denies abdominal pain, nausea, vomiting GENITOURINARY: Denies dysuria or hematuria. SKIN: Denies rash or itching. MUSCULOSKELETAL: Denies back pain, joint pain, or myalgia. NEUROLOGIC: Denies headache, numbness, dizziness, or weakness. PSYCHIATRIC: Denies anxiety or depression. [facility] Past Medical History Medical History COPD (chronic obstructive pulmonary disease) Rheumatoid arthritis Surgical History Surgical History No pertinent past surgical history Family History Family History Mother Family history non-contributory Social History Social History Smoking packs per day: 1 Smoking cigarettes per day: 20.0 Smoking status: Current every day smoker Substance use: never Living arrangements: alone Gender identity (if verbalized by the patient): Female Spiritual care concerns: No Exam Narrative: GENERAL: Well-appearing, well-nourished, and in no acute distress. HEAD: Normocephalic, atraumatic. EYES: PERRLA and EOMI. ENT: Nares clear, no rhinorrhea or epistaxis. Mucous membranes moist. Oropharynx without tonsillar hypertrophy exudate or other lesions. Bilateral TMs pearly fox nonbulging NECK: Supple. No adenopathy or masses. No carotid bruits or JVD CHEST: Cough present on exam. Clear to auscultation. No respiratory distress. No wheezes rales or rhonchi HEART: Regular rate and rhythm. No murmur heard. Normal peripheral pulses. ABDOMEN: Soft, nontender, nondistended, normal active bowel sounds. EXTREMITIES: Normal range of motion. No edema. SKIN: Warm, dry, no rash. NEURO: No focal deficits. Alert and oriented x3. PSYCH: Normal mood and affect. Course Course Emergency Course: This is a 63-year-old female who presented for evaluation of sick symptoms. COVID negative. Influenza A positive. Will treat with Tamiflu. Advised smoking cessation. Increase hydration. Zkeq-yru-kxxaexy agents for symptom management. Follow up with primary provider. Go to the ER for worsening symptoms. Patient in agreement with plan of care. Level of Care: Express Care Visit Vital Signs Vital signs: Vital Signs Temperature 36.4 C L 06/30/24 08:38 Pulse Rate 78 06/30/24 08:38 Respiratory Rate 16 06/30/24 08:38 Blood Pressure 99/58 L 06/30/24 08:38 Pulse Oximetry 100 06/30/24 08:38 Oxygen Delivery Room Air 06/30/24 08:38 Temperature 36.4 C L 06/30/24 08:38 Pulse Rate 78 06/30/24 08:38 Respiratory Rate 16 06/30/24 08:38 Blood Pressure 99/58 L 06/30/24 08:38 Pulse Oximetry 100 06/30/24 08:38 Oxygen Delivery Room Air 06/30/24 08:38 Medical Decision Making Vital Signs Vital Signs: Vital Signs Temperature 36.4 C L 06/30/24 08:38 Pulse Rate 78 06/30/24 08:38 Respiratory Rate 16 06/30/24 08:38 Blood Pressure 99/58 L 06/30/24 08:38 Pulse Oximetry 100 06/30/24 08:38 Oxygen Delivery Room Air 06/30/24 08:38 Temperature 36.4 C L 06/30/24 08:38 Pulse Rate 78 06/30/24 08:38 Respiratory Rate 16 06/30/24 08:38 Blood Pressure 99/58 L 06/30/24 08:38 Pulse Oximetry 100 06/30/24 08:38 Oxygen Delivery Room Air 06/30/24 08:38 Lab Data Labs: Lab Results 06/30/24 Range/Units 08:58 POC Influenza A Ag Positive (Negative) POC Influenza B Ag Negative (Negative) POC SARS CoV-2 Ag Negative (Negative) Discharge Plan Discharge Clinical Impression: Influenza A Patient Disposition: Home, Self-Care Condition: Stable Instructions: Antibiotic Form, Influenza (ED) Patient Language: Mongolian Prescriptions: New oseltamivir [Tamiflu] 75 mg capsule 75 mg PO Q12H 5 Days Qty: 10 0RF No Action albuterol sulfate 90 mcg/actuation HFA aerosol inhaler 2 puff INHALATION QID PRN (Reason: shortness of breath or wheezing) Qty: 8 0RF buspirone 5 mg tablet prednisone 10 mg tablet Actemra ACTPen 162 mg/0.9 mL pen injector 162 mg SUBCUT DIRECTED Proair Digihaler 90 mcg/actuation aero powdr breath act w/sensor 2 inh inhalation Q4-6H PRN (Reason: shortness of breath or wheezing) Qty: 1 0RF Follow-up/Referrals: Cornel,MD Amauri [Primary Care Provider] - Time of Disposition: 08:54
== END 2024-06-30 08:59 | disposition home or self-care (01) ==
PROVIDERS: Emergency Provider Nurse Practitioner; PCP Hospitalist
DX: J10.1 Influenza due to other identified influenza virus with other respiratory manifestations (principal); Z20.822 Contact with and (suspected) exposure to COVID-19; F17.210 Nicotine dependence, cigarettes, uncomplicated; J44.9 Chronic obstructive pulmonary disease, unspecified; M06.9 Rheumatoid arthritis, unspecified
CPT/HCPCS: 87426; 87804; 99213; G0463

== ENCOUNTER 2025-02-20 08:06 | Emergency (ER) | payer MEDICARE, SELFPAY ==
--- OUTSIDE RECORDS SUMMARY | 2025-02-20 08:12 | XMS_ITS | Encounter Summary ---
Author Organization [facility] Address [address] [place] [address] Care Team Providers Care Front Desk Monitor Name Role Phone Christian Christine NP Primary Care Provider [phone] Black Gann MD Unavailable Hayden March MD Unavailable [phone] Priimtivo Gil MD Primary Care Provider + Miscellaneous, Not In File Primary Care Provider Unavailable Eladio Hess MD Primary Care Provider [phone] Amauri Bro MD Primary Care Provider [phone] Antoinette Richey MA Unavailable Unavailable Encounter Details Date Type Department Care Team (Late st Contact Info) Description 11/22/2006 Orders Only [facility] Health Information Management [address] [place] [address] Scanning, Provider Social History Tobacco Use Types Packs/Day Years Used Date Smoking Tobacco: Never Assessed Comments Unknown Sex and Gender Information Value Date Recorded Sex Assigned at Not on file Legal Sex Female 8:18 AM AUTO BODY TECHNICIAN Gender Identity Not on file Sexual Orientation [...] COVID19 11/15/2021 11/15/2021 11/25/2021 3:05 AM CDT COVID: Suspected 08/24/2024 08/24/2024 08/24/2024 3:50 PM CDT COVID: Suspected 02/16/2025 02/17/2025 02/17/2025 1:05 AM CDT documented as of this encounter Care Teams Front Desk Monitor Relationship Specialty Start Date End Date Christian Christine NP [address] [place] [address] [address] [place] [address] [place] [address] PCP - General 08/22/17 03/09/21 Primitivo Gil MD [address] [place] [address] [address] [place] [address] [place] [address] PCP - General 03/10/21 11/14/21 Miscellaneous, Not In File PCP - General 11/15/21 Eladio Hess MD PCP - General 11/16/21 02/15/23 Amauri [place] [address] PCP - General Family Medicine 02/16/23 Black Gann MD [address] [place] [address] [address] [place] [address] [address] Consulting Physician General Surgery 11/24/20 Hayden March MD [address] [place] [address] [address] [place] [address] [address] Referring Physician Cardiology 11/24/20 Antoinette Richey, VICTORINA [address] [place] [address] [address] [place] [address] ACO Care Tunnel Elastic Operator Lockstitch 02/07/24 02/07/24 documented as of this encounter
--- OUTSIDE RECORDS SUMMARY | 2025-02-20 08:12 | XMS_ITS | Clinical Summary ---
Author Organization [facility] Address [address] [place] [address] Phone Care Team Providers Care Packing And Shipping Clerk Name Role Phone Christian Christine APRN, SOFTWARE ENGINEERING SUPERVISOR Primary Care Provider + Allergies No known [...] 1:57 PM CDT Height 170.2 cm (5' 7) 07/28/2015 1:57 PM CDT Body Mass Index 17.23 07/28/2015 1:57 PM CDT Plan of Treatment Health Maintenance Due Date Last Done Comments Hepatitis C Virus (HCV) Screening 1960 TdaP Immunization 1960 SARS-COV-2 Immunization (#1) 12/25/1963 Zoster Immunization (1 of 2) 1977 Cologuard 12/25/2003 Colonoscopy 12/25/2003 Colorectal Cancer Screening 12/25/2003 Immunochemical Fecal Occult Blood 12/25/2003 Pneumococcal Immunization (5 0+ years) (1 of 1 - PCV) 2008 Medicare Initial AWV G0438 08/08/2015 Respiratory Syncytial Virus (RSV) Immunization (Adult) (1 - Risk 60-74 years 1-dose series) 2018 Influenza Immunization (#1) 2025 Hepatitis B Immunization Aged Out No longer eligible based on patient's age to complete this topic Human Papillomavirus (HPV) Immunization Aged Out No longer eligible b ased on patient's age to complete this topic Meningococcal Immunization (ACWY) Aged Out No longer eligible based on patient's age to complete this topic Rotavirus Immunization Aged Out No lo nger eligible based on patient's age to complete this topic Insurance MEDICARE MEDICAID [place] Care Teams Packing And Shipping Clerk Relationship Specialty Start Date End Date Christian Christine, PUBLIC RELATIONS COORDINATOR, SOFTWARE ENGINEERING SUPERVISOR [address] [place] [address] PCP - General Internal Medicine 07/03/15
--- OUTSIDE RECORDS SUMMARY | 2025-02-20 08:12 | XMS_ITS | Encounter Summary ---
Author Organization [facility] Address [address] [place] [address] Care Team Providers Care Deputy Clerk Of Court Name Role Phone Christian Christine NP Primary Care Provider [phone] Black Gann MD Unavailable Hayden March MD Unavailable [phone] Primitivo Gil MD Primary Care Provider + Miscellaneous, Not In File Primary Care Provider Unavailable Eladio Hess MD Primary Care Provider [phone] Amauri Bro MD Primary Care Provider [phone] Antoinette Richey MA Unavailable Unavailable Encounter Details Date Type Department Care Team (Late st Contact Info) Description 07/01/2005 Orders Only [facility] [place] [facility] Information Management [address] [place] [address] Scanning, Provider Social History Tobacco Use Types Packs/Day Years Used Date Smoking Tobacco: Never Assessed Comments Unknown Sex and Gender Information Value Date Recorded Sex Assigned at Not on file 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 Gender Identity Not on file Sexual Orientation [...] documented as of this encounter Care Teams Deputy Clerk Of Court Relationship Specialty Start Date End Date Christian Christine NP [address] [place] [address] [address] [place] [address] PCP - General 08/22/17 03/09/21 Primitivo Gil MD [address] [place] [address] [address] [place] [address] PCP - General 03/10/21 11/14/21 Miscellaneous, Not In File PCP - General 11/15/21 Eladio Hess MD PCP - General 11/16/21 02/15/23 A[place]uri [place] [address] PCP - General Family Medicine 02/16/23 Black Gann MD [address] [facility] [facility] [address] [place] [address] Consulting Physician General Surgery 11/24/20 Hayden March MD [address] [facility] [facility] [address] [place] [address] Referring Physician Cardiology 11/24/20 Antointete Richey, VICTORINA [address] [place] [address] [address] [place] [address] ACO Care Agriculture Technician 02/07/24 02/07/24 documented as of this encounter
--- OUTSIDE RECORDS SUMMARY | 2025-02-20 08:12 | XMS_ITS | Encounter Summary ---
Author Organization [facility] Address [address] [place] [address] Care Team Providers Care Surgical Sales Representative Name Role Phone Christian Christine NP Primary Care Provider [phone] Black Gann MD Unavailable Hayden March MD Unavailable [phone] Primitivo Gil MD Primary Care Provider + Miscellaneous, Not In File Primary Care Provider Unavailable Eladio Hess MD Primary Care Provider [phone] Amauri Bro MD Primary Care Provider [phone] Antoinette Richey MA Unavailable Unavailable Encounter Details Date Type Department Care Team (Late st Contact Info) Description 11/05/2006 [place] [facility] [place] [address] [place] [address] Scanning, Provider Social History Tobacco Use Types Packs/Day Years Used Date Smoking Tobacco: Never Assessed Comments Unknown Sex and Gender Information Value Date Recorded Sex Assigned at Not on file 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 Gender Identity Not on file Sexual Orientation [...] documented as of this encounter Care Teams Surgical Sales Representative Relationship Specialty Start Date End Date Christian Christine NP [address] [place] [address] [address] [place] [address] PCP - General 08/22/17 03/09/21 Primitivo Gil MD [address] [place] [address] [address] [place] [address] PCP - General 03/10/21 11/14/21 Miscellaneous, Not In File PCP - General 11/15/21 Eladio Hess MD PCP - General 11/16/21 02/15/23 Amauri [place] [address] PCP - General Family Medicine 02/16/23 Black Gann MD [address] [facility] [address] [place] [address] Consulting Physician General Surgery 11/24/20 Hayden March MD [address] [facility] [address] [place] [address] Referring Physician Cardiology 11/24/20 Antoinette Richey, VICTORINA [address] [place] [address] [address] [place] [address] ACO Care Publicity Expert 02/07/24 02/07/24 documented as of this encounter
--- OUTSIDE RECORDS SUMMARY | 2025-02-20 08:12 | XMS_ITS | Clinical Summary ---
Author Organization [facility] Address [address] [place] [address] Care Team Providers Care Auditor/Quality Name Role Phone Chuy Hair MD Unavailable Amauri Bro MD Primary Care Provider [phone] Source Comments [facility] [employer],non-owned Affiliates and Associated Physician Practices is amultiple site organization consisting of ambulatory clinics and hospital sitesin [place], [place], [place] and [place]. This disclosure is being madepursuant to the Care Everywhere program and may not contain all information available regarding this patient. Last updated 18.[employer] Allergies No known active allergies Medications * Be aware that medications may not be up to date on this document. Alwaysverify current medications with the patient. Cholecalciferol (VITAMIN D) 1000 UNITS capsuleIndicati ons:High risk medications (not anticoagulants) long-term use Take 1 Cap by mouth once daily. 06/07/19 14 Active Additional Information Patient not taking.Reported on 08/24/2022 acetaminophen (TYLENOL) 500 MG tabletIndicatio ns:RA (rheumatoid arthritis) (HCC) Take 2 Tabs by mouth 3 times daily. Maximum allowable Acetaminophen amount = 4 Grams / 24 hours. 08/24/19 14 Active Additional Information Patient not taking.Reported on 08/24/2022 sulfaSALAzine (AZULFIDINE) 500 MG tabletIndicatio ns:Rheumatoid Arthritis Take 2 Tabs by mouth 2 times daily. Indications: Rheumatoid Arthritis 120 Tab 12 07/13/19 15 Active Additional Information Patient not taking.Reported on 05/12/2021 hydroxychloroqu ine (PLAQUENIL) 200 MG tabletIndicatio ns:RA (rheumatoid arthritis) (HCC) Take 1 Tab by mouth 2 times daily. 60 Tab 12 07/13/19 15 Active Additional Information Patient not taking.Reported on 05/12/2021 gabapentin (NEURONTIN) 300 MG capsuleIndicati ons:Insomnia Take 1-2 Caps by mouth at bedtime. 60 Cap 6 07/13/19 15 Active methotrexate 2.5 MG tabletIndicatio ns:RA (rheumatoid arthritis) ([facility]) Take 6 Tabs by mouth every 7 days. 24 Tab 12 07/13/19 15 Active Additional Information Patient not taking.Reported on 05/12/2021 mirtazapine (REMERON) 30 MG tabletIndicatio ns:Insomnia,Horacio ght loss Take 1 Tab by mouth at bedtime 30 Tab 5 01/15/20 15 Active Additional Information Patient not taking.Reported on 05/12/2021 methadone (DOLOPHINE) 10 MG tabletIndicatio ns:RA (rheumatoid arthritis) ([facility]) Take 0.5-1 Tabs by mouth 4 times daily as needed after meals/at bedtime for Pain Earliest Fill Date: 02/11/15 120 Tab 0 02/12/20 15 Active Additional Information Patient not taking.Reported on 05/12/2021 ALPRAZolam (XANAX) 0.25 MG tabletIndicatio ns:Insomnia Take 1 Tab by mouth at bedtime 30 Tab 0 02/12/20 15 Active Additional Information Patient not taking.Reported on 05/12/2021 traMADol (ULTRAM) 50 MG tablet TAKE ONE TO TWO TABLETS BY MOUTH THREE TIMES DAILY NEEDED FOR PAIN. TAKE WITH OVER THE COUNTER ACETAMINOPHEN. 180 Tab 0 02/19/20 15 Active famotidine (PEPCID) 40 MG tablet TAKE 1 TABLET(40 MG) BY MOUTH DAILY 09/30/19 21 Active insulin syringe-needle (BD ULTRAFINE) 29G X 1/2 1 ML syringe Use 1 syringe to inject MTX subcutaneously every 7 days. (100 syringes/box). 100 Each 05/12/19 22 Active Additional Information Patient not taking.Reported on 08/24/2022 tofacitinib 24hr (XELJANZ XR) 11 MG tablet Take 1 (one) tablet by mouth once daily 30 tablet 11 05/27/19 22 Active Eliquis 5 MG tablet Take 1 (one) tablet by mouth once daily 05/07/20 22 Active atorvastatin (Lipitor) 20 MG tablet Take 1 (one) tablet by mouth every evening 06/04/19 23 Active folic acid (Folvite) 1 MG tablet Take 1 (one) tablet by mouth once daily 90 tablet 4 08/25/19 23 Active predniSONE (Deltasone) 5 MG tabletIndicatio ns:Rheumatoid arthritis involving multiple sites, unspecified whether rheumatoid factor present (HCC) Take 1 (one) tablet by mouth once daily 90 tablet 1 08/25/19 23 Active methotrexate (Rheumatrex) 2.5 MG tablet TAKE 4 TABLETS BY MOUTH ONCE IN WEEK 1, AND THEN 6 TABLETS ONCE EVERY WEEK. 72 tablet 08/25/19 23 Active tocilizumab (Actemra) 162 MG/0.9ML auto-injector Inject 0.9 mL subcutaneously every 14 days 3.6 mL 5 09/01/19 23 Active naproxen sodium (Aleve) 220 MG tablet Take 1 (one) tablet by mouth 2 times daily 10 tablet 02/19/20 25 Active Active Problems Problem Noted Date Diagnosed [...] mg daily. MTX SQ, SSZ and Plaquenil Encounters Date Type Department Care Team Description 02/18/2025 6:20 AM CDT - 02/18/2025 1:36 PM CDT Emergency ER at [address] [address] Agustin Watson MD Acute intractable headache, unspecified headache type (Primary Dx); Other chest pain Discharge Disposition: Home or Self Care from Last 3 Months Immunizations Immunization Administration Dates Next Due Covid Pfizer primary monoval ent 12+ yr 0.3mL Purple [...] at Not on file Legal Sex Female 4:22 AM [facility] Gender Identity Not on file Sexual Orientation Not on file Occupation Industry Job Start Date Job End Date [employer] Not on file Not on file Not on file Last Filed Vital Signs Vital Sign Reading Time Taken Comments Blood Pressure 117/70 02/18/2025 9:52 AM CDT Pulse 74 02/18/2025 9:52 AM CDT Temperature 36.7 C (98.1 F) 02/18/2025 9:52 AM CDT Respiratory Rate 18 02/18/2025 9:52 AM CDT Oxygen Saturation 100% 02/18/2025 9:52 AM CDT Inhaled Oxygen Concentration - - Weight 54.4 kg (120 lb) 02/18/2025 6:22 AM CDT Height 170.2 cm (5' 7) 02/18/2025 6:22 AM CDT Body Mass Index 18.79 02/18/2025 6:22 AM CDT Plan of Treatment Health Maintenance Due Date Last Done Comments COLOGUARD (AGES 45-75) - COLON CA SCREENING 1958 CT COLONOGRAPHY - COLON CA SCREENING 1960 FIT - COLON CA SCREENING 1958 FLEX SIG - COLON CA SCREENING 1960 MEDICARE AWV 12 MONTHS 1958 DTAP/TDAP/TD VACCINES (1 - Tdap) 1977 PNEUMOCOCCAL VACCINE 50+ (1 of 2 - PCV) 1977 ZOSTER VACCINE (1 of 2) 2008 Respiratory Syncytial Virus (RSV) Vaccine Pt: or over 60 yrs (1 - Risk 60-74 years 1-dose series) 2018 DEPRESSION SCREENING 05/09/2024 COVID-19 VACCINE ( - season) 2025 03/05/2021, 08/28/2020, 07/31/2020 INFLUENZA VACCINE (#1) 2025 3, 02/06/2022, 03/05/2021, Additional history exists MAMMOGRAM 08/17/2026 08/17/2024, 08/07, 05/16/2015 COLON MONITORING 11/19/2029 11/20/2019 COLONOSCOPY - COLON CA SCREENING 11/19/2029 11/20/2019 Colorectal Cancer Screening 11/19/2029 HEPATITIS C SCREENING Completed 05/12/2021 BONE DENSITY TESTING Completed 08/17/2024 HEPATITIS B VACCINE Aged Out No longe r eligible based on patient's age to complete this topic HIB VACCINE Aged Out No longer eligi ble based on patient's age to complete this topic HPV VACCINE Aged Out No longer eligi ble based on patient's age to complete this topic MENINGOCOCCAL (Group B) VACCINE SHARED DECISION-MAKING Aged Out No longer eligible based on patient's age to complete this topic MENINGOCOCCAL GROUPS A/C/Y/W VACCINE Aged Out No longer eligible based on patient's age to complete this topic Procedures Procedure Name Priority Date/Time Associated Diagnosis Comments CARDIAC EKG ORDER 02/20/2025 12: [address] ANGIO BRAIN AND NECK STAT 02/18/2025 10:43 AM CDT Acute intractable headache, unspecified headache type TROPONIN-I HIGH SENSITIVE REFLEX 1HOUR Timed 02/18/2025 9:51 AM CDT XR CHEST 1VW PORTABLE STAT 02/18/2025 7:58 AM CDT Other chest pain LIPASE BLOOD STAT 02/18/2025 7:45 AM CDT TROPONIN-I HIGH SENSITIVE BASELINE + 1HR STAT 02/18/2025 7:45 AM CDT CK BLOOD STAT 02/18/2025 7:45 AM CDT COMPREHENSIVE METABOLIC PANEL STAT 02/18/2025 7:45 AM CDT CBC W AUTO DIFFERENTIAL STAT 02/18/2025 7:45 AM CDT EKG 12-LEAD STAT 02/18/2025 7:12 AM CDT Other chest pain CULTURE STREP GROUP A STAT 02/18/2025 7:12 AM CDT STREP A SCREEN DIRECT W RFLX STREP A CULTURE STAT 02/18/2025 7:12 AM CDT SARS-COV-2 (COVID-19) FLU A/B RSV PCR RAPID STAT 02/18/2025 7:12 AM CDT EKG 12-LEAD STAT 02/18/2025 6:30 AM CDT Acute intractable headache, unspecified headache type HEPATITIS SCREEN ACUTE Routine 2 1:30 PM [facility] Rheumatoid arthritis involving multiple sites, unspecified whether rheumatoid factor present Fatigue, unspecified type from Last 3 Months or Most Recently Relevant to Health Maintenance Results * CARDIAC EKG ORDER (02/20/2025 12:29 AM CDT) Narrative 02/20/2025 12:29 AM CDT Ordered by an unspecified provider. us Scanned Document CARDIAC SERVICES ORDERABLES Fin al Result * CT Angio Brain And Neck (02/18/2025 10:43 AM CDT) Anatomical Region Laterality Modality Head Computed Tomogra phy 02/18/2025 11:1 5 AM CDT Impressions 02/18/2025 11:43 AM CDT IMPRESSION: NO HEMODYNAMICALLY SIGNIFICANT STENOSIS. CTA Brain: The internal carotid arteries, middle cerebral arteries, anterior cerebral arteries, vertebral arteries, posterior cerebral arteries, basilar artery, and branch vessels of the [place] are widely patent without evidence of vessel stenosis or vessel occlusion. No intracranial aneurysms are identified. Severe mucosal thickening within the left sphenoid sinus cavity. Moderate mucosal thickening within the right sphenoid sinus cavity. Previous internal fixation of the left mandible. IMPRESSION: NO FLOW-LIMITING INTRACRANIAL ARTERIAL STENOSIS > Interpreting Provider: Jairon Yeboah MD on 02/18/2025 11:43 AM Narrative 02/18/2025 11:[address] ANGIOGRAPHY NECK WITH CONTRAST CT ANGIOGRAPHY HEAD WITH CONTRAST CT 3D RECONSTRUCTION CLINICAL INDICATION: Severe headaches TECHNIQUE: Axial CT images from the transverse aortic arch through the cranial vertex were obtained following the administration of 80 cc Isovue-370 intravenous contrast. Multiplanar reformatted, maximum intensity projection, and 3D volume rendered reconstructions of the arterial vasculature of the neck and brain was performed on an independent workstation. All CT scans at [facility] are performed using dose optimization techniques as appropriate to a performed exam to include AEC and Adjustment of mA and/or kV according to patient size. FINDINGS: CTA Neck: Indirect assessment of the distal portions of the bilateral internal carotid arteries relative to the proximal portions reveals no hemodynamically significant stenosis. There is wide patency of the common carotid, internal carotid, external carotid, and vertebral arteries. There is no evidence of vessel stenosis or vessel occlusion. Moderate to severe centrilobular emphysema noted. Procedure Note Jairon Yeboah MD - 02/18/2025 CT ANGIOGRAPHY NECK WITH CONTRAST CT ANGIOGRAPHY HEAD WITH CONTRAST CT 3D RECONSTRUCTION CLINICAL INDICATION: Severe headaches TECHNIQUE: Axial CT images from the transverse aortic arch through the cranial vertex were obtained following the administration of 80 cc Isovue-370 intravenous contrast. Multiplanar reformatted, maximumintensity projection, and 3D volume rendered reconstructions of the arterial vasculature of the neck and brain was performed on an independent workstation. All CT scans at [facility] are performed using dose optimization techniques as appropriate to a performed exam to include AEC andAdjustment of mA and/or kV according to patient size. FINDINGS: CTA Neck: Indirect assessment of the distal portions of the bilateral internal carotid arteries relative to the proximal portions reveals no hemodynamically significant stenosis. There is wide patency of thecommon carotid, internal carotid, external carotid, and vertebral arteries.There is no evidence of vessel stenosis or vessel occlusion. Moderate to severe centrilobular emphysema noted. IMPRESSION: NO HEMODYNAMICALLY SIGNIFICANT STENOSIS. CTA Brain: The internal carotid arteries, middle cerebral arteries, anteriorcerebral arteries, vertebral arteries, posterior cerebral arteries, basilarartery, and branch vessels of the [place] are widely patent without evidence of vessel stenosis or vessel occlusion. No intracranialaneurysms are identified. Severe mucosal thickening within the left sphenoid sinus cavity.Moderate mucosal thickening within the right sphenoid sinus cavity. Previous internal fixation of the left mandible. IMPRESSION: NO FLOW-LIMITING INTRACRANIAL ARTERIAL STENOSIS > Interpreting Provider: Jairon Yeboah MD on 02/18/2025 11:43 AM Agustin Watson MD CT ORDERABLES Final Result * TROPONIN-I HIGH SENSITIVE REFLEX 1HOUR (02/18/2025 9:51 AM CDT) Troponin I High Sensitive <3 <=14 ng/L 02/18/2025 10:26 AM CDT [facility] Delta Troponin I HS 02/18/2025 10:26 AM CDT [facility] Comment:Delta value intentio cece not calculated. Baseline to 1 hour specimen collection interval exceeded. Blood BLOOD SPECIMEN / Unknown Venipuncture / Unknown 02/18/2025 9:51 AM CDT 02/18/2025 9:55 AM CDT Agustin Watson MD LAB - CHEMISTRY ORDERABLES Trena l Result [facility] [address] [place] [address] * XR Chest 1Vw Portable (02/18/2025 7:58 AM CDT) Anatomical Region Laterality Modality Chest Computed Radiogr aphy 02/18/2025 8:17 AM CDT Narrative 02/18/2025 8:17 AM CDT PROCEDURE: XR CHEST 1VW PORTABLE, DATE/TIME OF EXAM: 02/18/2025 7:58 AM, LOCATION [facility] INDICATION: R07.89: Other chest pain COMPARISON: 02/10/2017 FINDINGS/IMPRESSION: There is no focal consolidation, pleural effusion, or pneumothorax. The cardiomediastinal silhouette is normal. The visible bony thorax is intact. > Interpreting Provider: Gabriel Bergeron DO on 02/18/2025 8:17 AM Procedure Note Gabriel Bergeron MD - 02/18/2025 PROCEDURE: XR CHEST 1VW PORTABLE, DATE/TIME OF EXAM: 02/18/2025 7:58AM, LOCATION [facility] INDICATION: R07.89: Other chest pain COMPARISON: 02/10/2017 FINDINGS/IMPRESSION: There is no focal consolidation, pleural effusion, or pneumothorax. The cardiomediastinal silhouette is normal. The visible bony thorax isintact. > Interpreting Provider: Gabriel Bergeron DO on 02/18/2025 8:17 AM us Agustin Watson MD DIAGNOSTIC IMAGING ORDERABLES F inal Result * TROPONIN-I HIGH SENSITIVE BASELINE + 1HR (02/18/2025 7:45 AM CDT) [facility] Troponin I High Sensitive <3 <=14 ng/L 02/18/2025 8:17 AM CDT [facility] Blood BLOOD SPECIMEN / Unknown Venipuncture / Unknown 02/18/2025 7:45 AM CDT 02/18/2025 7:54 AM CDT us Agustin Watson MD LAB - CHEMISTRY ORDERABLES Trena l Result [facility] [address] [place] [address] * (ABNORMAL) CBC W AUTO DIFFERENTIAL (02/18/2025 7:45 AM CDT) [facility] WBC 8.3 4.0 - 10.7 x10E9/L 02/18/2025 8:05 AM CDT [facility] RBC Count 4.88 3.90 - 5.20 x10E12/L 02/18/2025 8:05 AM CDT [facility] Hemoglobin 13.0 11.9 - 15.8 g/dL 02/18/2025 8:05 AM CDT [facility] Hematocrit 39.5 34.8 - 46.1 % 02/18/2025 8:05 AM CDT [facility] MCV 80.9 80.0 - 98.0 fL 02/18/2025 8:05 AM CDT [facility] MCH 26.6(L) 26.7 - 33.6 pg 02/18/2025 8:05 AM CDT [facility] MCHC 32.9 31.7 - 36.3 g/dL 02/18/2025 8:05 AM CDT [facility] RDW-CV 13.8 11.3 - 14.8 % 02/18/2025 8:05 AM CDT [facility] Platelet Count 207 150 - 420 x10E9/L 02/18/2025 8:05 AM CDT [facility] MPV 11.1 7.8 - 11.4 fL 02/18/2025 8:05 AM CDT [facility] Neutrophil % 51.3 41.0 - 74.0 % 02/18/2025 8:05 AM CDT [facility] Lymphocyte % 36.0 17.0 - 47.0 % 02/18/2025 8:05 AM CDT [facility] Monocyte % 10.7 3.0 - 11.0 % 02/18/2025 8:05 AM CDT [facility] Eosinophil % 1.2 0.0 - 7.0 % 02/18/2025 8:05 AM CDT [facility] Basophil % 0.4 0.0 - 1.6 % 02/18/2025 8:05 AM CDT [facility] Immature Granulocytes % 0.4 0.0 - 1.0 % 02/18/2025 8:05 AM CDT [facility] Neutrophil Absolute 4.25 1.60 - 7.50 x10E9/L 02/18/2025 8:05 AM CDT [facility] Lymphocyte Absolute 2.97 1.00 - 4.40 x10E9/L 02/18/2025 8:05 AM CDT [facility] Monocyte Absolute 0.88 0.15 - 1.00 x10E9/L 02/18/2025 8:05 AM CDT [facility] Eosinophil Absolute 0.10 0.00 - 0.60 x10E9/L 02/18/2025 8:05 AM CDT [facility] Basophil Absolute 0.03 0.00 - 0.13 x10E9/L 02/18/2025 8:05 AM CDT [facility] Blood BLOOD SPECIMEN / Unknown Venipuncture / Unknown 02/18/2025 7:45 AM CDT 02/18/2025 7:54 AM CDT Agustin Watson MD LAB - HEMATOLOGY ORDERABLES Fin al Result [facility] [address] [place] [address] * (ABNORMAL) COMPREHENSIVE METABOLIC PANEL (02/18/2025 7:45 AM CDT) Glucose 91 70 - 99 mg/dL 02/18/2025 8:13 AM CDT [facility] Sodium 140 136 - 145 mmol/L 02/18/2025 8:13 AM CDT [facility] Potassium 3.7 3.5 - 5.1 mmol/L 02/18/2025 8:13 AM CDT [facility] Chloride 108(H) 98 - 107 mmol/L 02/18/2025 8:13 AM CDT [facility] CO2 24 22 - 29 mmol/L 02/18/2025 8:13 AM CDT [facility] Calcium 9.3 8.4 - 10.4 mg/dL 02/18/2025 8:13 AM CDT [facility] Anion Gap 8 6 - 16 mmol/L 02/18/2025 8:13 AM CDT [facility] BUN 13 7 - 26 mg/dL 02/18/2025 8:13 AM CDT [facility] Creatinine 0.71 0.50 - 1.20 mg/dL 02/18/2025 8:13 AM CDT [facility] Alkaline Phosphatase 66 40 - 150 U/L 02/18/2025 8:13 AM CDT [facility] ALT 14 6 - 57 U/L 02/18/2025 8:13 AM CDT [facility] AST 23 10 - 48 U/L 02/18/2025 8:13 AM CDT [facility] Protein Total 7.0 6.4 - 8.3 gm/dL 02/18/2025 8:13 AM CDT [facility] Albumin 3.7 3.1 - 4.5 gm/dL 02/18/2025 8:13 AM CDT [facility] Bilirubin Total 0.6 0.2 - 1.2 mg/dL 02/18/2025 8:13 AM CDT [facility] eGFR by CKD-EPI >90 >=90 mL/min/1.7 3 m2 02/18/2025 8:13 AM T [facility] Comment:Estimated Glomerular Filtration Rate (eGFR) calculated using the CKD-EPI Creatinine Equation (2020), per the National Kidney Foundation and [place] [employer] recommendations. Blood BLOOD SPECIMEN / Unknown Venipuncture / Unknown 02/18/2025 7:45 AM CDT 02/18/2025 7:54 AM CDT Agustin Watson MD LAB - CHEMISTRY ORDERABLES Trena l Result [facility] [id number] [place] [address] [id number] * LIPASE BLOOD (02/18/2025 7:45 AM CDT) Lipase 25 <60 U/L 02/18/2025 8:13 AM CDT [facility] Blood BLOOD SPECIMEN / Unknown Venipuncture / Unknown 02/18/2025 7:45 AM CDT 02/18/2025 7:54 AM CDT Agustin Watson MD LAB - CHEMISTRY ORDERABLES Trena l Result [facility] [address] [place] [address] * CK BLOOD (02/18/2025 7:45 AM CDT) CK 69 29 - 168 U/L 02/18/2025 8:13 AM CDT [facility] Blood BLOOD SPECIMEN / Unknown Venipuncture / Unknown 02/18/2025 7:45 AM CDT 02/18/2025 7:54 AM CDT Agustin Watson MD LAB - CHEMISTRY ORDERABLES Trena l Result Performing Organization Address City/[facility]/ZIP Co de Phone Number [facility] [address] [place] [address] * EKG 12-Lead (02/18/2025 7:12 AM CDT) Only the most recent of2 resultswithin the time period is included. [facility] Ventricular Rate 69 BPM [facility] Atrial Rate 69 BPM [facility] P-R Interval 158 ms [facility] QRS Duration ms 82 ms [facility] Q-T Interval ms 380 ms [facility] QTC Calculation (Bezet) 407 ms [facility] MUSE Calculated P [place] 82 degrees [facility]USE Calculated R [place] 92 degrees [facility] Calculated T [place] 69 degrees [facility] Interpretation EKG Normal sinus rhythm Rightward axis Borderline ECG Confirmed by SCOUT ESTRADA MD ([id number]) on 02/18/2025 7:56:20 AM [facility] 02/18/2025 7:12 AM CDT 02/18/2025 7:56 AM CDT Agustin Watson MD ECG ORDERABLES Edited Result - Final Performing Organization Address City/[facility]/ZIP Co de Phone Number [facility] * SARS-COV-2 (COVID-19) FLU A/B RSV PCR RAPID (02/18/2025 7:12 AM CDT) [facility] COVID-19 PCR Not detected Not detected 02/19/20 8:00 AM CDT [facility] Influenza A PCR Not detected Not detected 02/18/2025 8:00 AM CDT [facility] Influenza B PCR Not detected Not detected 02/18/2025 8:00 AM CDT [facility] RSV PCR Not detected Not detected 02/18/2025 8:00 AM CDT [facility] Microbiology SPECIMEN FROM NASOPHARYNGEAL STRUCTURE / Unknown Collection / Unknown 02/18/2025 7:12 AM CDT 02/18/2025 7:17 AM CDT Narrative [facility] - 02/18/2025 8:00 AM CDT This nucleic acid amplification assay has been authorized by the Food and Drug administration (FDA) under an Emergency Use Authorization (EUA). This test is only authorized for the duration of time the declaration that circumstances exist justifying the authorization of emergency use of in vitro diagnostic tests for detection of SARS-CoV-2 virus and/or diagnosis of COVID-19 infection under section 564(b)(1) of the Act, 21 U.S.C 360bbb-3 (b)(1), unless the authorization is terminated or revoked sooner. Fact Sheets for this EUA assay are available upon request. Agustin Watson MD LAB - MICROBIOLOGY ORDERABLES F inal Result Performing Organization Address [facility] Co de Phone Number [facility] [address] [place] [address] * STREP A SCREEN DIRECT W RFLX STREP A CULTURE (02/18/2025 7:12 AM CDT) Strep A Rapid Negative Negative 02/18/2025 7:32 AM CDT [facility] Microbiology ENTIRE ANTERIOR SURFACE OF NECK / Unknown Collection / Unknown 02/18/2025 7:12 AM CDT 02/18/2025 7:17 AM CDT Narrative [facility] - 02/18/2025 7:32 AM CDT Test has reflexed to a Strep A culture. Agustin Watson MD LAB - MICROBIOLOGY ORDERABLES F inal Result Performing Organization Address City/[facility] Co de Phone Number [facility] [address] [place] [address] * CULTURE STREP GROUP A (02/18/2025 7:12 AM CDT) Culture Negative for beta-hemolytic Streptococcus Group A [facility] 02/19/2025 10:46 AM CDT [facility] Microbiology ENTIRE ANTERIOR SURFACE OF NECK / Unknown Collection / Unknown 02/18/2025 7:12 AM CDT 02/18/2025 7:17 AM CDT Agustin Watson MD LAB - MICROBIOLOGY ORDERABLES F inal Result [facility] [address] [place] [address], [facility] [phone] * HEPATITIS SCREEN ACUTE (05/12/2021 1:30 PM [facility]) Hepatitis A Virus Antibody IgM Negative Negative [...] with a HCV Nucleic Acid Amplification test ([id number]). Effective July 20, 2021 Hepatitis Panel (4) will be made non-orderable. [facility] offers order code [id number] Acute Hepatitis. Blood BLOOD SPECIMEN / Unknown 05/12/2021 1:30 PM [facility] 05/12/2021 Narrative Resulting Agency Comment Lab Testing performed at: [facility] [address] [facility] [id number] Aleida Velasquez MD LAB - CHEMISTRY ORDERABLES Final Result [facility] INSURANCE BILL [address] [place] [id number] from Last 3 Months or Most Recently Relevant to Health Maintenance Insurance MEDICARE Care Teams Auditor/Quality Relationship Specialty Start Date End Date Amauri Bro MD [address] [place] [address] PCP - General Family Medicine 02/18/25 Chuy Hair MD Rheumatology 05/21/11
--- OUTSIDE RECORDS SUMMARY | 2025-02-20 08:12 | XMS_ITS | Clinical Summary ---
Author Organization [facility] Address [address] [place] [address] Care Team Providers Care Special Projects Manager Name Role Phone Black Gann MD Unavailable Hayden March MD Unavailable [phone] Amauri Bro MD Primary Care Provider [phone] Allergies No known active allergies Medications FLUoxetine (PROzac) 20 mg capsule Take 1 capsule (20 mg total) by mouth daily 90 capsule 3 3 Active ibuprofen (ADVIL,MOTRIN) 800 mg tablet TAKE 1 TABLET(800 MG) BY MOUTH EVERY 8 HOURS NEEDED FOR PAIN 270 tablet 3 4 Active pravastatin (PRAVACHOL) 10 mg tabletIndications: Mixed hyperlipidemia TAKE 1 TABLET(10 MG) BY MOUTH DAILY 90 tablet 5 Active albuterol HFA (PROVENTIL HFA,VENTOLIN HFA,PROAIR HFA) 90 mcg/actuation inhalerIndications :Acute URI,Acute cough Inhale 2 puffs every 6 (six) hours as needed for wheezing 3 each 4 5 08/25/19 26 Active diclofenac sodium (VOLTAREN) 1 % gelIndications:Ost eoarthritis,Pain Apply 4 g topically 4 (four) times a day 150 g 5 Active butalbital-acetami nophen-caffeine (ESGIC) 50-325-40 mg per tablet Take 1 tablet by mouth every 4 (four) hours as needed for headaches 15 tablet 5 Active metoclopramide (REGLAN) 10 mg tablet Take 1 tablet (10 mg total) by mouth every 6 (six) hours 30 tablet Active Active Problems Problem Noted Date Diagnosed Date Recurrent major depression 02/16/2023 Assessment & Plan (06/25/2024 11:52 AM INSULATION BOARD BACK TENDER): Well controlled, good relief with medication no significant depression, patient does reports some anxiety Continue fluoxetine 20 mg daily, start BuSpar 5 mg t.i.d. Assessment & Plan (04/18/2023 3:42 PM INSULATION BOARD BACK TENDER): Stable, currently well controlled Continue Fluoxetine 20 mg daily Follow up 3 months; sooner as needed Assessment & Plan (02/24/2023 4:56 PM CDT): Restart previous medications Prozac 20 mg daily Family history of colon cancer in mother 023 History of colon polyps 11/01/2022 Rheumatoid arthritis involving multiple sites Assessment & Plan (12/07/2024 1:08 PM CDT): See above. Will continue to monitor. Orders: diclofenac sodium (VOLTAREN) 1 % gel; Apply 4 g topically 4 (four) times a day predniSONE (DELTASONE) 10 mg tablet; Take 1 tablet (10 mg) by mouth 4 (four) times a day for 5 days Assessment & Plan (06/25/2024 11:52 AM INSULATION BOARD BACK TENDER): Not well controlled; continues to have significant swelling deformity right hand, now developing swelling and left hands; patient did not tolerate previous medications Recommend engagement with rheumatology for other medical options Continue prednisone p.r.n. for severe flares Assessment & Plan (04/18/2023 3:41 PM INSULATION BOARD BACK TENDER): Follows with Rheumatology [facility] every 14 days Obtain CBC prior to next appt Assessment & Plan (02/16/2023 3:35 PM CDT): Follows with rheumatology; on -Dr. Velasquez -[place], every 14 days -generally well controlled for patient Bochdalek hernia 11/24/2020 Pulmonary nodule 11/24/2020 Assessment & Plan (04/18/2023 3:36 PM INSULATION BOARD BACK TENDER): Reviewed CT scan results with patient Will [...] nodules and she has an appt with tow motor mechanic next week. She also had cardiac workup and these were negative. Pt admits to having GERD for years on a daily basis and does not take any medication. She is also a heavy smoker. Pt was given pepcid by ER doctor and says this helped with GERD somewhat. Pt called in more refills for Pepcid 40mg daily and will schedule EGD. Body mass index (BMI) of 19.0-19.9 in adult 10/07 Assessment & Plan (12/07/2024 1:08 PM CDT): Weight appropriate for patient. Assessment & Plan (08/24/2024 3:51 PM CDT): Weight appropriate for patient. Tobacco use 10/23/2019 Assessment & Plan (06/25/2024 11:50 AM INSULATION BOARD BACK TENDER): Patient continues to smoke about 1 pack per day, no current thoughts on quitting, has high levels of anxiety impacts her Will continue with annual lung cancer screening; encouraged patient to continue to evaluate causes of her continued tobacco use and ways to limit use Assessment & Plan (04/18/2023 3:41 PM INSULATION BOARD BACK TENDER): Still smokes 1 ppd; not interested in [...] (10/23/2019): Added automatically from request for surgery [id number] Assessment & Plan (02/24/2023 4:55 PM CDT): Has been decreasing, calming down; rare use of famotidine To monitor, avoid foods that trigger acid reflux Screen for colon cancer 10/23/2019 Overview (10/23/2019): Added automatically from request for surgery [id number] Sprain of anterior talofibular ligament of right ankle 09/17/2019 Chronic obstructive lung disease 10/10/2018 Assessment & Plan (06/25/2024 11:51 AM INSULATION BOARD BACK TENDER): Difficulty with breathing, generally well controlled; encourage [...] 09/11/2018 Assessment & Plan (06/25/2024 11:51 AM INSULATION BOARD BACK TENDER): Not well controlled, LDL and total cholesterol elevated; continue pravastatin 10 mg daily; encourage low-fat high-fiber Assessment & Plan (04/18/2023 3:40 PM INSULATION BOARD BACK TENDER): Not well controlled; last lipid panel not at goal Start Pravastatin 10 mg daily Follow up in 3 months; obtain labs prior to appt Assessment & Plan (02/24/2023 4:56 PM CDT): Unclear controlled; patient has not been taking medications; will check lipid panel, evaluate if patient would benefit from statin therapy Lumbar spinal stenosis 07/03/2015 Assessment & Plan (06/25/2024 11:51 AM INSULATION BOARD BACK TENDER): Well controlled, no major symptoms at this [...] Encounters Date Type Department Care Team Description 02/16/2025 11:43 PM CDT - 02/17/2025 2:48 AM CDT Emergency [facility] Emergency Department [address] [place] [address] Acute nonintractable headache, unspecified headache type (Primary Dx); Nausea and vomiting, unspecified vomiting type Discharge Disposition: Discharge to home or self care 12/07/2024 1:00 PM CDT [facility] Visit [facility] [address] [phone] Sara Rodriguez NP Bilateral hand swelling (Primary Dx); Rheumatoid arthritis involving multiple sites, unspecified whether rheumatoid factor present (HCC); Body mass index (BMI) of 19.0-19.9 in adult from Last 3 Months Immunizations Immunization Administration Dates Next Due Influenza, Quadrivalent, Spl it, Intramuscular 03/27/2018,02/10/2017 Influenza, Quadrivalent, Spl it, Preservative Free, Intramuscular 02/16/2023,01/29/2020 Influenza, Trivalent, Preser vative Free, Intramuscular 02/19/2016 Influenza, Unspecified 12/07/2024(Deferr ed: Patient Refused),01/08/2024(Deferred: Patient Refused),02/06/2022 Pneumococcal Conjugate Pcv20 06/25/2024 Tdap 09/06/2024 Surgical History Surgery Date Site/Laterality Comments LUNG SURGERY Left removed rheumatoid nodule THROAT SURGERY nodule removed APPENDECTOMY SECTION OVARY SURGERY Left COLONOSCOPY 11/22/2006 COLONOSCOPY 11/20/2019 UPPER GASTROINTESTINAL ENDOSCOPY ORAL SURGERY Left plate placed; repair of mandibular fracture Medical History Medical History Date Comments Rheumatoid aortitis GERD (gastroesophageal reflux disease) COPD (chronic obstructive pulmonary disease) Arthritis Family History Medical History Relation Name [...] points, staff should administer the PHQ-9) 0 12/07/2024 Personal Safety Answer Date Recorded Have you ever been in or are you currently in a harmful physical or emotional relationship or is someone making you feel afraid or unsafe? Denies 02/16/2025 Comments No Sex and Gender Information Value Date Recorded Sex Assigned at Not on file Legal Sex Female 8:18 AM INSULATION BOARD BACK TENDER Gender Identity Not on file Sexual Orientation Not on file Obstetrics History Para Term AB IAB SAB Ectopic Multiple Livin g Live Births 2 2 2 Date Outcome GA Total Labor Labor/2nd/3rd Weight Sex Type Anes PTL Karen A1 A5 Name Clin Term Term Last Filed Vital Signs Vital Sign Reading Time Taken Comments Blood Pressure 122/70 02/17/2025 2:35 AM CDT Pulse 68 02/17/2025 2:35 AM CDT Temperature 36.4 C (97.5 F) 02/17/2025 2:35 AM CDT Respiratory Rate 15 02/17/2025 2:35 AM CDT Oxygen Saturation 99% 02/17/2025 2:35 AM CDT Inhaled Oxygen Concentration - - Weight 54.4 kg (120 lb) 02/16/2025 10:01 PM CDT Height 170.2 cm (5' 7) 02/16/2025 10:01 PM CDT Body Mass Index 18.79 02/16/2025 10:01 PM CDT Plan of Treatment Health Maintenance Due Date Last Done Comments Zoster Vaccine (1 of 2) 2008 Covid-19 Vaccine (2024-06 6 season) 2025 03/05/2021, 08/28/2020, 07/31/2020 Influenza Vaccine (#1) 2025 , 02/06/2022, 01/29/2020, Additional history exists Well Visit 65+ 06/25/2025 06/25/2024 Breast Cancer Screening-Mammogram 08/17/2025 025, 05/16/2015 Lung Cancer Screening 08/18/2025 08/17/2024, 023 Depression Screening 12/07/2025 12/07/2024, 08/24/2024, 06/25/2024, Additional history exists Fall Risk Assessment 12/07/2025 12/07/2024, 06/25/2024, 02/16/2023, Additional history exists Osteoporosis Screening-Bone Density Scan 08/17/2026 08/17/2024 Colon Cancer Screening-Colonoscopy 11/19/2029 11/20/2019 DTaP/Tdap/Td Vaccine (2 - Td or Tdap) 09/06/2034 09/06/2024 Colon Cancer Screening-CT Colonography Discontinued 11/20/2019 Colon Cancer Screening-DNA Stool Discontinued 11/20/19 Colon Cancer Screening-FIT Discontinued 11/20/2019 Colon Cancer Screening-Sigmoidoscopy Discontinued 11/20/2019 Hepatitis B Screening Completed 10/13/2023 Hepatitis C Screening Completed 10/13/2023 Pneumococcal vaccine 65+ Completed 06/25/2024 Medical Devices Implanted Type Area Core Filer Device Identifier Shelf Expiration Date Model / Serial / Lot Jaw Left: Mandible Description:2008 Broken jaw Procedures Procedure Name Priority Date/Time Associated Diagnosis Comments CT HEAD WO CONTRAST ED 02/17/2025 12:27 AM CDT INFLUENZA A/B, RSV, AND COVID-19 PCR STAT 02/17/2025 12:19 AM CDT EGFR STAT 02/16/2025 10:19 PM CDT DIFFERENTIAL AUTO STAT 02/16/2025 10:19 PM CDT LIPASE STAT 02/16/2025 10:19 PM CDT COMPREHENSIVE METABOLIC PANEL STAT 02/16/2025 10:19 PM CDT CBC WITH AUTO DIFFERENTIAL STAT 02/16/2025 10:19 PM CDT ECG 12-LEAD Routine 02/16/2025 10:07 PM CDT SCREENING MAMMOGRAM BILATERAL W LIZETTE Schedule Routine, Read Routine (OP Routine) 08/17/2024 2:12 PM CDT Encounter for screening mammogram for malignant neoplasm of breast CT LUNG CANCER SCREENING Schedule Routine, Read Routine (OP Routine) 08/17/2024 2:06 PM CDT Tobacco use Nicotine dependence, cigarettes, uncomplicated DEXA AXIAL SKELETON BONE DENSITY 1 OR MORE SITES Schedule Routine, Read Routine (OP Routine) 08/17/2024 1:57 PM CDT Post-menopause HEPATITIS C ANTIBODY Routine 10/13/2023 10:31 AM CDT Need for hepatitis C screening test COLONOSCOPY 11/20/2019 10:14 AM CDT from Last 3 Months or Most Recently Relevant to Health Maintenance Results * CT Head WO Contrast (02/17/2025 12:27 AM CDT) Anatomical Region Laterality Modality Head and Neck N/A Computed Tomogra phy 02/17/2025 1:03 AM CDT Narrative 02/17/2025 1:05 AM CDT EXAM DESCRIPTION: CT HEAD WO CONTRAST REASON FOR STUDY: Acute headache, nausea. multiple medical complaint neck pain ,headache ,heart burn.ear pain TECHNIQUE: Axial images acquired through the brain without intravenous contrast. Coronal and sagittal reformats were performed. Images stored on PACS. Automated mA/kV exposure control was used as a dose optimization technique for this examination and patient examination was performed in strict accordance with principles of ALARA. COMPARISON: CT of the head of October 09, 2019. FINDINGS: BRAIN: No hemorrhage, edema or mass effect. No recent infarct. Normal white matter. EXTRA-AXIAL SPACES: No fluid collections. No masses. CALVARIUM: No fracture. SINUSES/MASTOIDS: There is scattered opacification of the posterior ethmoid air cells. There is complete opacification of the left sphenoid sinus and moderate mucosal thickening of the right sphenoid sinus. Remaining paranasal sinuses and mastoid air cells are clear. ORBITS: No significant abnormality. OTHER: No other significant abnormality. IMPRESSION: 1. No acute intracranial abnormality. 2. Paranasal sinus disease. THIS IS AN ELECTRONICALLY VERIFIED FINAL REPORT 02/17/2025 1:05 AM - Electronically signed by Veronika Carvajal M.D. SN: Report ID: [id number] Reading Location: [id number] Procedure Note Veronika Carvajal MD - 02/17/2025 EXAM DESCRIPTION: CT HEAD WO CONTRAST REASON FOR STUDY: Acute headache, nausea. multiple medical complaint neck pain ,headache ,heart burn.ear pain TECHNIQUE: Axial images acquired through the brain without intravenous contrast. Coronal and sagittal reformats were performed. Images storedon PACS. Automated mA/kV exposure control was used as a dose optimization technique for this examination and patient examination was performed instrict accordance with principles of ALARA. COMPARISON: CT of the head of October 09, 2019. FINDINGS: BRAIN: No hemorrhage, edema or mass effect. No recent infarct. Normal white matter. EXTRA-AXIAL SPACES: No fluid collections. No masses. CALVARIUM: No fracture. SINUSES/MASTOIDS: There is scattered opacification of the posteriorethmoid air cells. There is complete opacification of the left sphenoid sinus and moderate mucosal thickening of the right sphenoid sinus. Remainingparanasal sinuses and mastoid air cells are clear. ORBITS: No significant abnormality. OTHER: No other significant abnormality. IMPRESSION: 1. No acute intracranial abnormality. 2. Paranasal sinus disease. THIS IS AN ELECTRONICALLY VERIFIED FINAL REPORT 02/17/2025 1:05 AM - Electronically signed by Veronika Carvajal M.D. SN: Report ID: [id number] Reading Location: [id number] [facility] IMG CT PROCEDURE S Final Result * Influenza A/B, RSV, and COVID-19 PCR Nasopharyngeal (02/17/2025 12:19 AM CDT) COVID-19 RNA Negative Negative Influenza A RNA Negative Negative [facility] ([place]) Influenza B RNA Negative Negative [facility] ([place]) RSV RNA Negative Negative [facility] ([place]) Comment: Interpretive data: Testing performed by [facility]. This test is performed using the [employer] Xpert Xpress CoV-2/Flu/RSV plus assay. This is a multiplex, real- time reverse transcriptase PCR assay intended for the qualitative detection of nucleic acid from SARS-CoV-2, influenza A, influenza B, and respiratory syncytial virus. This assay has been cleared by the [place] Food and Drug administration. The performance characteristics have been verified by the [facility]. Results must be considered in the clinical context, and a negative result does not rule out infection. Interpretive Data last revised 2023 Nasopharyngeal 02/17/2025 12 :19 AM CDT 02/17/2025 12:22 AM CDT Narrative [facility] ([place]) - 02/17/2025 1:04 AM CDT Is the Patient experiencing symptoms consistent with COVID?->Yes us Sudheer [facility] MICROBIOLOGY - GENERAL ORDERABLES Final Result Performing Organization Address City/[facility]/ZIP Co de Phone Number [facility] ([place]) [address] [facility] [place] [address] * eGFR (02/16/2025 10:19 PM CDT) eGFR >90 >=60 mL/min/1. 73 m2 Comment: [...] interpretive data was last reviewed 2021. Blood 02/16/2025 10:1 9 PM CDT 02/16/2025 10:22 PM CDT us Luis Angel [facility] BLOOD ORDERABLES Final R esult [facility] ([place]) [address] [facility] Department [place] [address] * Differential, auto (02/16/2025 10:19 PM CDT) Neutrophil abs 4.41 1.50 - 6.50 K/cumm Imm gran abs 0.03 0.00 - 0.10 K/cumm [facility] ([place]) Lymphocyte abs 1.82 0.80 - 3.30 K/cumm [facility] ([place]) Monocyte abs 0.65 0.20 - 0.80 K/cumm [facility] ([place]) Eosinophil abs 0.10 0.00 - 0.50 K/cumm [facility] ([place]) Basophil abs 0.02 0.00 - 0.10 K/cumm [facility] ([place]) Neutrophil pct 62.8 % [facility] ([place]) Comment: Interpretive Data Percent cell count reference ranges are not reported, since discordance with absolute values may lead to misinterpretation of CBC data. Current Interpretive Data was last revised on 2017. Imm gran pct 0.4 % [facility] ([place]) Comment: Interpretive Data Percent cell count reference ranges are not reported, since discordance with absolute values may lead to misinterpretation of CBC data. Current Interpretive Data was last revised on 2017. Lymphocyte pct 25.9 % [facility] ([place]) Comment: Interpretive Data Percent cell count reference ranges are not reported, since discordance with absolute values may lead to misinterpretation of CBC data. Current Interpretive Data was last revised on 2017. Monocyte pct 9.2 % [facility] ([place]) Comment: Interpretive Data Percent cell count reference ranges are not reported, since discordance with absolute values may lead to misinterpretation of CBC data. Current Interpretive Data was last revised on 2017. Eosinophil pct 1.4 % [facility] ([place]) Comment: Interpretive Data Percent cell count reference ranges are not reported, since discordance with absolute values may lead to misinterpretation of CBC data. Current Interpretive Data was last revised on 2017. Basophil pct 0.3 % [facility] ([place]) Comment: Interpretive Data Percent cell count reference ranges are not reported, since discordance with absolute values may lead to misinterpretation of CBC data. Current Interpretive Data was last revised on 2017. Blood 02/16/2025 10:1 9 PM CDT 02/16/2025 10:22 PM CDT Luis Angel [facility] BLOOD ORDERABLES Final R esult [facility] ([place]) [address] [facility] [place] [address] * (ABNORMAL) CBC with auto differential (02/16/2025 10:19 PM CDT) WBC 7.03 3.80 - 9.90 K/cumm Hgb 13.9 11.9 - 15.5 g/dL [facility] ([place]) Hct 40.6 35.6 - 45.5 % [facility] ([place]) Plt 201 150 - 400 K/cumm [facility] ([place]) MPV 10.4 9.1 - 12.3 fL [facility] ([place]) RBC 5.14 3.90 - 5.20 M/cumm [facility] ([place]) MCV 79.0(L) 81.3 - 96.4 fL [facility] ([place]) MCH 27.0(L) 27.1 - 33.3 pg [facility] ([place]) MCHC 34.2 32.3 - 35.7 g/dL [facility] ([place]) RDW CV 13.4 11.1 - 14.9 % [facility] ([place]) RDW SD 38.9 35.7 - 48.1 fL [facility] ([place]) NRBC abs 0.00 0.00 - 0.01 K/cumm [facility] ([place]) Blood 02/16/2025 10:1 9 PM CDT 02/16/2025 10:22 PM CDT Luis Angel [facility] BLOOD ORDERABLES Final R esult [facility] ([place]) [address] [facility] [place] [address] * Lipase (02/16/2025 10:19 PM CDT) Lipase 22 10 - 99 Units/L Blood 02/16/2025 10:1 9 PM CDT 02/16/2025 10:22 PM CDT Luis Angel [facility] BLOOD ORDERABLES Final R esult [facility] ([place] [address] [facility] Department [place] [address] * (ABNORMAL) Comprehensive metabolic panel (02/16/2025 10:19 PM CDT) Sodium 128(L) 135 - 145 mmol/L Potassium, pl 3.6 3.3 - 4.9 mmol/L [facility] ([place]) Chloride 95(L) 97 - 110 mmol/L [facility] ([place]) CO2 23 22 - 32 mmol/L [facility] ([place]) Anion gap 10 2 - 15 mmol/L [facility] ([place]) BUN 11 6 - 25 mg/dL [facility] ([place]) Creatinine 0.49(L) 0.60 - 1.10 mg/dL [facility] ([place]) Glucose 112 70 - 199 mg/dL [facility] ([place]) Comment: Interpretive Data Fasting glucose >/= 126 [...] interpretive data was last revised 2022. Calcium 9.5 8.5 - 10.3 mg/dL [facility] ([place]) Bilirubin, total 0.6 0.1 - 1.2 mg/dL [facility] ([place]) Protein, pl 6.7 6.5 - 8.5 g/dL [facility] ([place]) Albumin 4.2 3.5 - 5.0 g/dL [facility] ([place]) Alk phos 73 40 - 130 Units/L [facility] ([place]) ALT 9 7 - 45 Units/L [facility] ([place]) AST 20 10 - 45 Units/L [facility] ([place]) Blood 02/16/2025 10:1 9 PM CDT 02/16/2025 10:22 PM CDT Luis Angel [facility] BLOOD ORDERABLES Final R esult Performing Organization Address City/[facility] Co de Phone Number [facility] ([place]) [address] [facility] [place] [address] * ECG 12 lead (02/16/2025 10:07 PM CDT) 02/16/2025 10:0 7 PM CDT Narrative [facility] - 02/18/2025 8:28 AM CDT Vent Rate: 77 bpm RR Interval: [address] Interval: 148 msec QRS Duration: 86 msec QT Interval: 382 msec QTC Interval: 414 msec P-R-T [place]: 57 - 73 - 67 degrees IMPRESSION: SINUS RHYTHM LOW QRS VOLTAGE IN PRECORDIAL LEADS [QRS DEFLECTION < 1.0 mV IN CHEST LEADS] BORDERLINE ECG Electronically Signed By: Shailesh Kan MD Luis Angel [facility] ECG ORDERABLES Final Result Performing Organization Address [facility] Co de Phone Number [facility] * SCREENING MAMMOGRAM BILATERAL W LIZETTE (08/17/2024 2:12 PM CDT) Anatomical Region Laterality Modality Breast Bilateral Mammography 08/17/2024 2:19 PM CDT Impressions 08/17/2024 2:19 PM CDT No evidence of malignancy in either breast. FINAL ASSESSMENT: BI-RADS Category 1: Negative. RECOMMENDATION: Recommend return for annual screening mammogram in 12 months. Electronically signed by: Black Ramirez M.D. Narrative 08/17/2024 2:19 PM CDT EXAMINATION: BILATERAL SCREENING MAMMOGRAM COMPARISON: 05/16/2015 TECHNIQUE: Full-field 2D and digital breast tomosynthesis (DBT) images were obtained. CAD was utilized. BREAST PARENCHYMAL COMPOSITION: There are scattered areas of fibroglandular density. FINDINGS: There is no suspicious mass, calcification, or distortion in either breast. Amauri Bro MD IMG MAMMO PROCEDURES Trena l Result * CT Lung Cancer Screening (08/17/2024 2:06 PM CDT) Anatomical Region Laterality Modality Chest N/A Computed Tomogra phy 08/29/2024 11:4 5 AM CDT Narrative 08/29/2024 11:53 AM CDT EXAM DESCRIPTION: CT LUNG CANCER SCREENING REASON FOR STUDY: Screening CT of the chest in a current smoker with a 41 pack year smoking history. Additional history: None. [...] DOSE: CT dose index volume (CTDIvol) = 0.91 mGy COMPARISON: 04/09/2023 FINDINGS: SMOKING RELATED LUNG DISEASE: There are [id number] emphysematous changes of lungs with scattered subsegmental atelectasis and scarring, which is most significant in the left lung base, similar to the prior study. There is mild biapical pleural thickening and scarring. There is no definite evidence of a pneumothorax. The central airways are grossly patent. There is scattered bronchial wall thickening, which is likely related to mild chronic bronchitis/bronchiolitis. There is no definite evidence of focal consolidation or pleural effusion. LUNG NODULES: There are scattered pulmonary nodules noted, similar to the prior study. For example, there is a stable 0.2 cm pulmonary nodule in the lateral right upper lobe (axial image 49). There is a stable subtle subpleural 0.3 cm pulmonary nodule in the anterior right upper lobe (axial image 90). There is a stable subpleural 0.4 cm pulmonary nodule in the lateral right lower lobe (axial image 235). There is redemonstration of the multiple nodules along the left major fissure with largest nodule measuring 0.5 cm, similar to the prior study (axial image 165). There is grossly stable subpleural 0.8 cm left lower lobe pulmonary nodule (axial image 209). There is a stable subpleural 0.5 cm pulmonary nodule in the lateral left lower lobe (axial image 220). CORONARY ARTERY CALCIFICATION: Present. OTHER: The heart size is stable. There is a grossly stable small pericardial effusion. There are atherosclerotic changes of the thoracic aorta and coronary vessels. There is no definite unenhanced CT evidence of mediastinal, hilar, or axillary lymphadenopathy. There are scattered subcentimeter mediastinal lymph nodes noted with the largest measuring 0.6 cm in the subcarinal region (axial image 129). There is small hiatal hernia. The bilateral adrenal glands are grossly stable and unremarkable. There is mild osteopenia. There is a mild S shaped scoliotic curvature of the spine with degenerative changes. IMPRESSION: Redemonstration of scattered pulmonary nodules measuring up to 0.8 cm, grossly similar to the prior study. No definite evidence of a new suspicious pulmonary nodule. Mild to moderate emphysematous changes of lungs with scattered subsegmental atelectasis and scarring, which is most significant in the left lung base, similar to the prior study. Scattered bronchial wall thickening, which is likely related to mild chronic bronchitis/bronchiolitis. Grossly stable small pericardial effusion. Lung-RADS category 2: Benign appearance or behavior. Recommendation: Low dose Screening CT of chest in 12 months. THIS IS AN ELECTRONICALLY VERIFIED FINAL REPORT 08/29/2024 11:53 AM - Electronically signed by Rachael Callaway D.O. PS: PS Report ID: [id number] Reading Location: [id number] Procedure Note Rachael Callaway, - 08/29/2024 EXAM DESCRIPTION: CT LUNG CANCER SCREENING REASON FOR STUDY: Screening CT of the chest in a current smoker with a41 pack year smoking history. Additional history: None. [...] DOSE: CT dose index volume (CTDIvol) = 0.91 mGy COMPARISON: 04/09/2023 FINDINGS: SMOKING RELATED LUNG DISEASE: There are ghpw-fh-hnlmsalx emphysematous changes of lungs with scattered subsegmental atelectasis and scarring,which is most significant in the left lung base, similar to the prior study.There is mild biapical pleural thickening and scarring. There is no definite evidence of a pneumothorax. The central airways are grossly patent.There is scattered bronchial wall thickening, which is likely related to mildchronic bronchitis/bronchiolitis. There is no definite evidence of focal consolidation or pleural effusion. LUNG NODULES: There are scattered pulmonary nodules noted, similar tothe prior study. For example, there is a stable 0.2 cm pulmonary nodule inthe lateral right upper lobe (axial image 49). There is a stable subtle subpleural 0.3 cm pulmonary nodule in the anterior right upper lobe (axial image 90). There is a stable subpleural 0.4 cm pulmonary nodule in the lateral right lower lobe (axial image 235). There is redemonstration ofthe multiple nodules along the left major fissure with largest nodulemeasuring 0.5 cm, similar to the prior study (axial image 165). There is grosslystable subpleural 0.8 cm left lower lobe pulmonary nodule (axial image 209).There is a stable subpleural 0.5 cm pulmonary nodule in the lateral left lowerlobe (axial image 220). CORONARY ARTERY CALCIFICATION: Present. OTHER: The heart size is stable. There is a grossly stable small pericardial effusion. There are atherosclerotic changes of the thoracicaorta and coronary vessels. There is no definite unenhanced CT evidence of mediastinal, hilar, oraxillary lymphadenopathy. There are scattered subcentimeter mediastinal lymphnodes noted with the largest measuring 0.6 cm in the subcarinal region (axialimage 129). There is small hiatal hernia. The bilateral adrenal glands are grosslystable and unremarkable. There is mild osteopenia. There is a mild S shaped scoliotic curvature ofthe spine with degenerative changes. IMPRESSION: Redemonstration of scattered pulmonary nodules measuring up to 0.8 cm, grossly similar to the prior study. No definite evidence of a newsuspicious pulmonary nodule. Mild to moderate emphysematous changes of lungs with scatteredsubsegmental atelectasis and scarring, which is most significant in the left lung base, similar to the prior study. Scattered bronchial wall thickening, which is likely related to mildchronic bronchitis/bronchiolitis. Grossly stable small pericardial effusion. Lung-RADS category 2: Benign appearance or behavior. Recommendation: Low dose Screening CT of chest in 12 months. THIS IS AN ELECTRONICALLY VERIFIED FINAL REPORT 08/29/2024 11:53 AM - Electronically signed by Rachael Callaway D.O. PS: PS Report ID: [id number] Reading Location: [place] [address] Amauri Bro MD IMG CT PROCEDURES Final R esult * Dexa Axial Skeleton Bone Density 1 or 2 Site (08/17/2024 1:57 PM CDT) Anatomical Region Laterality Modality Body N/A Other 08/18/2024 6:23 AM CDT Narrative 08/18/2024 6:24 AM CDT EXAM DESCRIPTION: DEXA AXIAL SKELETON BONE DENSITY 1 OR MORE SITES REASON FOR STUDY: 63 y/o year old F with given history of: Postmenopausal status. History of smoking and rheumatoid arthritis. Core Filer/Model: [employer] SL (S/N [id number]) Facility LSC value of 0.022 for the AP spine, 0.027 for the femur, and 0.023 for the forearm. CLINICAL INFORMATION: Current height: 67 inches Maximum height: 67 inches Weight: 130 pounds Risk factors: Smoking and rheumatoid arthritis COMPARISON: None available FINDINGS: AP LUMBAR SPINE L1-L4: Total BMD is 0.975 g/cm2 T-score is -0.7 LEFT HIP: Total BMD is 0.856 g/cm2 T-score is -0.7 Femoral neck BMD is 0.696 g/cm2 T-score is -1.4 FRAX: 10 year risk for a major osteoporotic fracture is 10 %, 10 year risk for a hip fracture is 2.1 % Per National Osteoporosis Foundation guidelines, this patient does not meet the criteria for pharmacological treatment of patients with FRAX 10 year major osteoporotic fracture risk scores of = or greater than 20% or a 10 year probability of a hip fracture = or greater than 3%, to reduce fracture risk. Additional factors such as frequent falls are not represented in FRAX and warrant individual clinical judgment. IMPRESSION: Low bone mass REFERENCE: Bone mineral density: T-Score: Normal (T-score above or = -1.0) Low bone mass (T-score between -1.0 and -2.5) replaces the previously used term osteopenia Osteoporosis (T-score = or below -2.5) Z-Score: Within the expected range for age (Z-score above -2.0) Below the expected range for age (Z-score is -2.0 or below) Please see below follow up recommendations. Medical evaluation for secondary causes of low bone mineral density may be appropriate. FRAX is a World Health Organization validated fracture risk assessment tool that calculates a person's 10 year probability of a major osteoporosis related fracture and hip fracture. According to the National Osteoporosis Foundation guidelines, postmenopausal women and men age 50 or older with low bone mass and a 10 year probability of a major osteoporosis related fracture = or greater than 20% or a 10 year probability of a hip fracture = or greater than 3% should be considered for pharmacological treatment for the prevention of osteoporosis. For further information, including treatment recommendations, please refer to the 2019 ISCD Official Positions (http://www.iscd.org) and the NOF's Clinician's Guide to Prevention and Treatment of Osteoporosis (http://www.nof.org/professionals/clinical-guidelines) THIS IS AN ELECTRONICALLY VERIFIED FINAL REPORT 08/18/2024 6:24 AM - Electronically signed by Kayla Pompa M.D. TW: TW Report ID: [id number] Reading Location: [id number] Procedure Note Kayla Pompa MD - 08/18/2024 EXAM DESCRIPTION: DEXA AXIAL SKELETON BONE DENSITY 1 OR MORE SITES REASON FOR STUDY: 63 y/o year old F with given history of:Postmenopausal status. History of smoking and rheumatoid arthritis. Core Filer/Model: [employer] SL (S/N 10307) Facility LSC value of 0.022 for the AP spine, 0.027 for the femur, and0.023 for the forearm. CLINICAL INFORMATION: Current height: 67 inches Maximum height: 67 inches Weight: 130 pounds Risk factors: Smoking and rheumatoid arthritis COMPARISON: None available FINDINGS: AP LUMBAR SPINE L1-L4: Total BMD is 0.975 g/cm2 T-score is -0.7 LEFT HIP: Total BMD is 0.856 g/cm2 T-score is -0.7 Femoral neck BMD is 0.696 g/cm2 T-score is -1.4 FRAX: 10 year risk for a major osteoporotic fracture is 10 %, 10 year risk for ahip fracture is 2.1 % Per National Osteoporosis Foundation guidelines, this patient does notmeet the criteria for pharmacological treatment of patients with FRAX 10 yearmajor osteoporotic fracture risk scores of = or greater than 20% or a 10 year probability of a hip fracture = or greater than 3%, to reduce fracturerisk. Additional factors such as frequent falls are not represented in FRAX and warrant individual clinical judgment. IMPRESSION: Low bone mass REFERENCE: Bone mineral density: T-Score: Normal (T-score above or = -1.0) Low bone mass (T-score between -1.0 and -2.5) replaces thepreviously used term osteopenia Osteoporosis (T-score = or below -2.5) Z-Score: Within the expected range for age (Z-score above -2.0) Below the expected range for age (Z-score is -2.0 or below) Please see below follow up recommendations. Medical evaluation forsecondary causes of low bone mineral density may be appropriate. FRAX is a World Health Organization validated fracture risk assessmenttool that calculates a person's 10 year probability of a major osteoporosisrelated fracture and hip fracture. According to the National OsteoporosisFoundation guidelines, postmenopausal women and men age 50 or older with low bonemass and a 10 year probability of a major osteoporosis related fracture = or greater than 20% or a 10 year probability of a hip fracture = or greaterthan 3% should be considered for pharmacological treatment for the preventionof osteoporosis. For further information, including treatment recommendations, please referto the 2019 ISCD Official Positions (http://www.iscd.org) and the NOF's Clinician's Guide to Prevention and Treatment of Osteoporosis (http://www.nof.org/professionals/clinical-guidelines) THIS IS AN ELECTRONICALLY VERIFIED FINAL REPORT 08/18/2024 6:24 AM - Electronically signed by Kayla Pompa M.D. TW: TW Report ID: [id number] Reading Location: [place] [address] [place] Amauri Bro MD IMG DXA PROCEDURES Final Result * Hepatitis C antibody Blood (10/13/2023 10:31 [...] last revised on 2019. Testing performed by: [facility], [address] [place] [address]., [id number] Blood 10/13/2023 10:3 1 AM CDT 10/13/2023 5:44 PM CDT us Ana Dumont NP LAB MICROBIOLOGY - GENERAL ORDER UNIQUE Final Result [facility] ([facility]) [address] [facility] Department [place] [address] * COLONOSCOPY (11/20/2019 10:14 AM CDT) Anatomical Region Laterality Modality Other Narrative Procedure Note Scott Fisher MD - 11/20/2019 10:14 AM CDT [facility] Patient Name: Padmini Little Procedure Date: 11/20/2019 10:14 AM Date of : 1960 Admit Type: Outpatient Age: 58 Gender: Female Attending MD: Scott Fisher M.D. Room: [facility] ENDOSCOPY ROOM 1 Note Status: Finalized Patient Profile: This is a 58 year old female. Her mother had colon cancer. Screening. Procedure: Colonoscopy Indications: Screening in patient at increased risk: Familyhistory of 1st-degree relative with colorectal cancer, Last colonoscopy: November 2006 Referring MD: Christian Christine, ANP Providers: Scott Fisher M.D. Impression: [...] passed under direct vision.The Pediatric Colonoscope PCF-H190L [id number] was introduced through the anus and advanced [...] 10:14 AM Procedure Code(s): --- Professional --- 61939, Colonoscopy, flexible; with removal of tumor(s), polyp(s), or other lesion(s) by snare technique 71666, 59, Colonoscopy, flexible; with biopsy, single or multiple Diagnosis Code(s): --- Professional --- Z80.0, Family history of malignant neoplasm of digestive organs K64.8, Other hemorrhoids D12.2, Benign neoplasm of ascending colon D12.3, Benign neoplasm of transverse colon (hepatic flexure orsplenic flexure) CPT copyright 2017 [employer]. All rights reserved. The codes documented in this report are preliminary and upon pitting machine operator reviewmay be revised to meet current compliance requirements. Recognized by the [place] for promoting quality in endoscopy Scott Fisher MD ENDOSCOPY PROCEDURES Final Result from Last 3 Months or Most Recently Relevant to Health Maintenance Insurance MEDICARE MEDICARE Member Subscriber Plan / Payer (Ef fective 2014-Present) Name:Padmini Little Member ID:[id number] Relation to Subscriber:Self Name:Padmini Little Subscriber ID:[id number] Payer ID:[id number] Group ID:Not on file Type:MEDICARE TRADITIONAL Address: [place] [phone] [facility] CHOICE PLUS MEDICARE WORKERS COMPENSATION GENERIC Advance Directives For more information, please contact: [phone] * Full Code (Latest Code Status on [...] 9:56 AM 11/13/2019 9:56 AM Care Teams Special Projects Manager Relationship Specialty Start Date End Date Amauri Bro MD [address] [place] [address] PCP - General Family Medicine 02/16/23 Black Gann MD Consulting Physician General Surgery 11/24/20 Hayden March MD Referring Physician Cardiology 11/24/20
--- NOTE | 2025-02-20 08:13 | ED_ITS ---
HPI - URI/Sore Throat General Chief Complaint: Upper Respiratory Infection Stated Complaint: Right Ear Pain/Sore Throat/Dizziness Time Seen by Provider: 02/20/25 08:16 Source: patient Mode of arrival: ambulatory Limitations: no limitations History of Present Illness HPI Narrative: 64-year-old female presents to [facility] with complaints of sore throat, ear pain and dizziness for the past 5 days. Patient reports that she has had shooting pains in her head at times and also pain in her neck below her ears. Patient reports sinus congestion with facial pressure states that sinus drainage in yellow in color. Patient reports that she has had fever up to 101F for the past 2 days and has been taking Aleve, Tylenol and Ibuprofen.Patient reports that she was seen in the ED 2 X over the weekend at different facilities and they told her it was migraines. MD elicited complaint: cough and sore throat Pertinent past history: COPD and other (tobacco abuse) Onset (ago): day(s) (5) Consistency: progressively worsening Pain scale (0-10): 7 Description of mucous: yellow Able to tolerate fluids by mouth: Yes Treatments prior to arrival: acetaminophen, ibuprofen and other (Aleve) Related Data Home Medications ?Medication ?Instructions ?Recorded ?Confirmed ?Last Taken ?Type metoclopramide HCl 10 mg tablet mg 02/20/25 Unknown H istory Allergies Allergy/AdvReac Type Severity Reaction Status Date / Time No Known Allergies Allergy Verified 12/19/22 08:16 Review of Systems Review of Systems: CONSTITUTIONAL: Reports malaise, chills, sweats, or fever. EYES: Denies visual changes, redness, or discharge. ENT: Reports rhinorrhea, congestion, sinus pain,bilateral otalgia and sore throat. CARDIOVASCULAR: Denies chest pain, palpitations, or edema. RESPIRATORY: Reports occasional productive cough .? Denies dyspnea. GASTROINTESTINAL: Denies abdominal pain, nausea, vomiting, diarrhea SKIN: Denies rash or itching. MUSCULOSKELETAL: Denies myalgia. NEUROLOGIC: Denies headache. All systems reviewed & are unremarkable except as noted in HPI and below PMFSH Past Medical History Medical History (Updated 02/20/25 @ 08:33 by Vianca Hartman NP) Rheumatoid arthritis COPD (chronic obstructive pulmonary disease) Surgical History Surgical History (Updated 02/20/25 @ 08:28 by Vianca Hartman NP) Hx of removal of ovary History of lung surgery nodule removed History of appendectomy No pertinent past surgical history Family History Family History Mother Family history non-contributory Social History Social History (Updated 02/20/25 @ 08:29 by Vianca Hartman NP) Smoking packs per day: 1 Smoking cigarettes per day: 20.0 Smoking status: Current every day smoker Alcohol intake: unknown Alcohol use details: reports no alcohol use Substance use: never Living arrangements: alone Gender identity (if verbalized by the patient): Female Spiritual care concerns: No Comments At time of signature, agree with nursing past medical, surgical, social and family history. There is no relevant family history pertinent to the presenting complaint Exam Narrative: GENERAL:looks older than stated age, well-nourished, and in no acute distress. HEAD: Normocephalic EYES: PERRLA, conjunctivae clear ENT: Nares clear, turbinates edematous and erythematous, yellow discharge, sinus pressure and headaches. Mucous membranes moist.Right TM red, Left TM pearly fox with dull light reflex ; no tragal tenderness. Oropharynx erythematous without lesions. Tonsils not enlarged and without exudate, no drooling, no hoarseness, no trismus, uvula midline. NECK: Supple. No lymphadenopathy CHEST: Clear decreased to auscultation, breath sounds equal. No wheezing, rhonchi, rales, or stridor. No respiratory distress, speaks in full sentences. productive cough, SAO2 100% on room air HEART: Regular rate and rhythm. No murmur heard. SKIN: Warm, dry, no rash. NEURO: Alert and oriented x3. PSYCH: Normal mood and affect Course Course Emergency Course: Patient is aware of diagnosis, understands and agrees to treatment plan.? Anticipatory guidance given.? Patient agrees to follow-up as directed and is aware of reasons to seek care at the emergency department. Portions of this record may have been created with voice recognition software Level of Care: Express Care Visit Vital Signs Vital signs: Vital Signs Temperature 36.1 C L 02/20/25 08:14 Pulse Rate 76 02/20/25 08:14 Respiratory Rate 14 02/20/25 08:14 Blood Pressure 147/78 H 02/20/25 08:14 Pulse Oximetry 100 02/20/25 08:14 Oxygen Delivery Room Air 02/20/25 08:14 Temperature 36.1 C L 02/20/25 08:14 Pulse Rate 76 02/20/25 08:14 Respiratory Rate 14 02/20/25 08:14 Blood Pressure 147/78 H 02/20/25 08:14 Pulse Oximetry 100 02/20/25 08:14 Oxygen Delivery Room Air 02/20/25 08:14 Reviewed MDM - URI/Sore Throat MDM Narrative Medical decision making narrative: Differential diagnosis considered: Sullivan virus, strep pharyngitis, allergic rhinitis, upper respiratory tract infection, sinusitis, rhinosinusitis, nasopharyngitis. viral pharyngitis, otitis media, otitis externa, pneumonia, bronchitis, viral cough syndrome, viral syndrome, and influenza.? Exam findings show no acute concerns or changes; patient is non-toxic appearing and is in no distress.? Patient is appropriate for outpatient treatment and follow-up. Differential Diagnosis Differential diagnosis: Likely upper respiratory infection, otitis media, sinusitis, viral infection and pharyngitis Medical Records Attestation: I reviewed the patient's medical records. Lab Data Attestation: I reviewed the patient's lab results. Critical Care Time Critical Care Time Critical Care Time: No Discharge Plan Discharge Clinical Impression: Otitis media, right Qualifiers: Otitis media type: serous Chronicity: acute Recurrence: non-recurrent Qualified Code(s): H65.01 - Acute serous otitis media, right ear Upper respiratory infection Qualifiers: URI type: unspecified URI Qualified Code(s): J06.9 - Acute upper respiratory infection, unspecified Patient Disposition: Home Condition: Stable Instructions: Antibiotic Form, Ear Infection (ED), Upper Respiratory Infection (ED) Additional Instructions: Increase fluids especially juices and water Heun-fpc-[id number] cough and cold medicine of your choice for your symptoms Zyrtec or Claritin daily Continue your inhaler/nebulizer as directed Tylenol ibuprofen for any fever pain for pack extraction heat to the face 20-30 minutes 4-6 times a day for pain Salt water gargles, throat lozenges or throat sprays as desired Antibiotic as directed--finished the medication If your symptoms persist, change or worsen significantly before you can contact your personal physician then please, without delay, go to the emergency department for further evaluation. Follow-up with PCP in 7-10 days or sooner if needed Follow up with PCP soon in regards to your blood pressure which is elevated above threshold for referral. Blood pressure above 120/80 may indicate pre- hypertension. 147/78 Patient Language: Albanian Prescriptions: New amoxicillin 875 mg tablet 875 mg PO Q12H Qty: 20 0RF Rx Instructions: take with food complete all doses No Action albuterol sulfate 90 mcg/actuation HFA aerosol inhaler 2 puff INHALATION QID PRN (Reason: shortness of breath or wheezing) Qty: 8 0RF Proair Digihaler 90 mcg/actuation aero powdr breath act w/sensor 2 inh inhalation Q4-6H PRN (Reason: shortness of breath or wheezing) Qty: 1 0RF metoclopramide HCl 10 mg tablet Follow-up/Referrals: Adali,MD Amauri [Primary Care Provider, Unknown] Time of Disposition: 08:34 Quality [place] Coma Scale Eyes: Open Verbal: Oriented and Alert Motor: Follows Commands Beni Coma Total Score: 15
[2025-02-20 08:14] VITALS: BP 147/78; PULSE 76; RESP 14; TEMP 36.1; O2SAT 100
== END 2025-02-20 08:42 | disposition home or self-care (01) ==
PROVIDERS: Emergency Provider Registered Nurse; PCP Hospitalist
DX: H65.01 Acute serous otitis media, right ear (principal); J06.9 Acute upper respiratory infection, unspecified; F17.210 Nicotine dependence, cigarettes, uncomplicated; J44.9 Chronic obstructive pulmonary disease, unspecified; M06.9 Rheumatoid arthritis, unspecified
CPT/HCPCS: 99213; G0463